=== PATIENT | female | born 1945 | race African-American/Black ===

== ENCOUNTER 2017-04-27 09:38 | Outpatient (CLI) | payer MEDICARE, OTHER ==
[2017-04-27 10:03] LABS: Eosinophils % (Auto) 2.5 % (0.0-4.3); Hematocrit 26.9 % (30.3-42.9); Hemoglobin 8.8 gm/dl (10.1-14.3); Mean Corpuscular HGB Conc 33 % (30-34); Mean Corpuscular Hemoglobin 32 pg (28-32); Mean Corpuscular Volume 97 fl (79-97); Platelet Count 281 K/mm3 (140-440); Red Blood Count 2.78 M/mm3 (3.65-5.03); Red Cell Distribution Width 15.7 % (13.2-15.2); White Blood Count 6.1 K/mm3 (4.5-11.0)
[2017-04-27 10:04] LABS: Bilirubin,Urine NEG (Negative); Blood,Urine NEG (Negative); Ketones,Urine NEG (Negative); Leukocyte Esterase,Urine NEG (Negative); Mucus,Urine FEW /HPF; Nitrite,Urine NEG (Negative); Urobilinogen,Urine < 2.0 mg/dL (<2.0); WBC,Urine < 1.0 /HPF (0.0-6.0)
[2017-04-27 10:19] LABS: Calcium 8.6 mg/dL (8.4-10.2); Chloride 100.1 mmol/L (98-107); Phosphorous 6.8 mg/dL (2.5-4.5)
== END 2017-04-27 09:39 | disposition home or self-care (01) ==
LOC: LAB 09:38
PROVIDERS: ATTEND Internal Medicine Nephrology
DX: N17.9 Acute kidney failure, unspecified (principal)
CPT/HCPCS: 36415; 80048; 81001; 84100; 85025

== ENCOUNTER 2017-05-27 14:56 | Inpatient (IN) | payer MEDICARE, OTHER ==
[2017-05-27] MEDS ORDERED: D50W (25GM) Syringe IV ONE ×4 (15:54→18:33)
[2017-05-27 16:02] LABS: Basophils % (Auto) 0.8 % (0.0-1.8); Eosinophils # (Auto) 0.1 K/mm3 (0.0-0.4); Eosinophils % (Auto) 0.9 % (0.0-4.3); Hematocrit 27.7 % (30.3-42.9); Hemoglobin 9.3 gm/dl (10.1-14.3); Lymphocytes # (Auto) 0.6 K/mm3 (1.2-5.4); Lymphocytes % (Auto) 10.1 % (13.4-35.0); Mean Corpuscular HGB Conc 34 % (30-34); Mean Corpuscular Hemoglobin 32 pg (28-32); Mean Corpuscular Volume 95 fl (79-97); Monocytes # (Auto) 0.4 K/mm3 (0.0-0.8); Monocytes % (Auto) 5.7 % (0.0-7.3); Platelet Count 160 K/mm3 (140-440); Red Blood Count 2.92 M/mm3 (3.65-5.03); Red Cell Distribution Width 15.4 % (13.2-15.2)
[2017-05-27 16:24] LABS: Albumin 3.5 g/dL (3.9-5); Calcium 8.6 mg/dL (8.4-10.2)
--- NOTE | 2017-05-27 17:01 | Emergency Department Report ---
ED Altered Mental Status HPI - General Chief Complaint: Altered Mental Status Stated Complaint: GENERAL ILLNESS Time Seen by Provider: 05/27/17 16:33 Source: EMS, RN notes reviewed Mode of arrival: Stretcher Limitations: Language Barrier - History of Present Illness MD Complaint: altered mental status, decreased responsiveness -: unknown (Accu-Chek was 35 according to the nurse.) Severity: severe Consistency of Symptoms: waxing and waning Context: diabetes, other (hypoglycemia) Associated Symptoms: denies other symptoms Treatments Prior to Arrival: glucose - Related Data Home Medications Medication Instructions Recorded Confirmed Last Taken Latanoprost 1 drop OU QHS 04/21/17 04/21/17 04/14/17 21:00 1 drop Previous Rx's Medication Instructions Recorded Last Taken Type Aspirin [Aspirin BABY CHEW TAB] 81 mg PO QDAY #30 tab.chew 04/21/17 Unknown Rx AtorvaSTATin [Lipitor] 40 mg PO QHS tablet 04/21/17 Unknown Rx Calcitriol [Rocaltrol] 0.25 mcg PO QDAY #30 capsule 04/21/17 Unknown Rx Calcium Acetate [Phoslo] 667 mg PO TIDWM #90 capsule 04/21/17 Unknown Rx Carvedilol [Coreg] 12.5 mg PO BID #60 tablet 04/21/17 Unknown Rx Ferrous Sulfate [Feosol 325 MG tab] 325 mg PO QDAY #30 tablet 04/21/17 Unknown Rx Folic Acid/Vit B Comp W-C [Renal 1 cap PO QDAY #30 capsule 04/21/17 Unknown Rx Caps] Furosemide [Lasix TAB] 40 mg PO 0600,1800 #60 tablet 04/21/17 Unknown Rx Glimepiride [Amaryl] 2 mg PO QDDIAB tablet 04/21/17 Unknown Rx NovoLIN 70/30 6 units SQ Q12HR #1 vial 04/21/17 04/14/17 Rx Pantoprazole [Protonix TAB] 40 mg PO BID #60 tablet 04/21/17 Unknown Rx Zolpidem [Ambien] 5 mg PO QHS PRN tablet 04/21/17 Unknown Rx hydrALAZINE [Apresoline TAB] 100 mg PO TID #90 tab 04/21/17 Unknown Rx Allergies Allergy/AdvReac Type Severity Reaction Status Date / Time No Known Allergies Allergy Unverified 07/14/14 15:02 ED Review of Systems ROS: Stated complaint: GENERAL ILLNESS Other details as noted in HPI Comment: Unobtainable due to pts medical conditions Constitutional: weakness ED Past Medical Hx - Past Medical History Hx Hypertension: Yes (admitted in CHF due to volume overload) Hx Diabetes: Yes Hx Renal Disease: Yes (stage 5 CKD with secondary hyoerparathyroidism.) Additional medical history: cataracts - Surgical History Hx Cholecystectomy: Yes - Social History Smoking Status: Unknown if ever smoked - Medications Home Medications: Home Medications Medication Instructions Recorded Confirmed Last Taken Type Aspirin [Aspirin BABY CHEW TAB] 81 mg PO QDAY #30 tab.chew 04/21/17 Unknown Rx AtorvaSTATin [Lipitor] 40 mg PO QHS tablet 04/21/17 Unknown Rx Calcitriol [Rocaltrol] 0.25 mcg PO QDAY #30 capsule 04/21/17 Unknown Rx Calcium Acetate [Phoslo] 667 mg PO TIDWM #90 capsule 04/21/17 Unknown Rx Carvedilol [Coreg] 12.5 mg PO BID #60 tablet 04/21/17 Unknown Rx Ferrous Sulfate [Feosol 325 MG tab] 325 mg PO QDAY #30 tablet 04/21/17 Unknown Rx Folic Acid/Vit B Comp W-C [Renal 1 cap PO QDAY #30 capsule 04/21/17 Unknown Rx Caps] Furosemide [Lasix TAB] 40 mg PO 0600,1800 #60 tablet 04/21/17 Unknown Rx Glimepiride [Amaryl] 2 mg PO QDDIAB tablet 04/21/17 Unknown Rx Latanoprost 1 drop OU QHS 04/21/17 04/21/17 04/14/17 21:00 History 1 drop NovoLIN 70/30 6 units SQ Q12HR #1 vial 04/21/17 04/14/17 Rx Pantoprazole [Protonix TAB] 40 mg PO BID #60 tablet 04/21/17 Unknown Rx Zolpidem [Ambien] 5 mg PO QHS PRN tablet 04/21/17 Unknown Rx hydrALAZINE [Apresoline TAB] 100 mg PO TID #90 tab 04/21/17 Unknown Rx ED Physical Exam - General Limitations: Language Barrier, Altered Mental Status General appearance: lethargic - Head Head exam: Present: atraumatic, normocephalic - Eye Eye exam: Present: normal appearance, PERRL, EOMI Pupils: Present: normal accommodation - ENT ENT exam: Present: mucous membranes dry - Neck Neck exam: Present: normal inspection, full ROM. Absent: tenderness - Respiratory Respiratory exam: Present: rales. Absent: chest wall tenderness - Cardiovascular Cardiovascular Exam: Present: regular rate, normal rhythm - GI/Abdominal GI/Abdominal exam: Present: soft, normal bowel sounds. Absent: distended, tenderness, organomegaly, mass - Rectal Rectal exam: Present: deferred - Extremities Exam Extremities exam: Present: pedal edema (4+ pedal pitting edema.) - Back Exam Back exam: Present: normal inspection - Neurological Exam Neurological exam: Present: alert - Psychiatric Psychiatric exam: Present: flat affect - Skin Skin exam: Present: warm, dry, intact, normal color ED Course Vital Signs 05/27/17 05/27/17 05/27/17 14:57 15:30 15:32 Temperature 97.5 F L Pulse Rate 72 71 72 Pulse Rate [ Throughout] Respiratory 18 22 24 Rate Respiratory Rate [ Throughout] Blood Pressure 211/89 Blood Pressure 211/85 [Left] O2 Sat by Pulse 95 95 Oximetry 05/27/17 05/27/17 05/27/17 15:45 16:00 16:15 Temperature Pulse Rate 67 72 69 Pulse Rate [ Throughout] Respiratory 21 21 17 Rate Respiratory Rate [ Throughout] Blood Pressure 206/87 208/90 222/92 Blood Pressure [Left] O2 Sat by Pulse 96 93 96 Oximetry 05/27/17 05/27/17 05/27/17 16:30 16:45 17:01 Temperature Pulse Rate 74 78 72 Pulse Rate [ Throughout] Respiratory 18 20 20 Rate Respiratory Rate [ Throughout] Blood Pressure 226/98 225/107 227/92 Blood Pressure [Left] O2 Sat by Pulse 95 98 95 Oximetry 05/27/17 05/27/17 05/27/17 17:17 17:30 17:45 Temperature Pulse Rate 76 75 74 Pulse Rate [ Throughout] Respiratory 18 19 14 Rate Respiratory Rate [ Throughout] Blood Pressure 227/92 226/89 226/89 Blood Pressure [Left] O2 Sat by Pulse 99 100 Oximetry 05/27/17 05/27/17 05/27/17 18:00 18:15 18:30 Temperature Pulse Rate 70 69 75 Pulse Rate [ Throughout] Respiratory 19 17 18 Rate Respiratory Rate [ Throughout] Blood Pressure 228/95 228/95 230/107 Blood Pressure [Left] O2 Sat by Pulse 100 100 99 Oximetry 05/27/17 05/27/17 05/27/17 18:45 19:00 19:15 Temperature Pulse Rate 72 78 75 Pulse Rate [ Throughout] Respiratory 17 17 18 Rate Respiratory Rate [ Throughout] Blood Pressure 230/107 235/105 235/105 Blood Pressure [Left] O2 Sat by Pulse 100 98 100 Oximetry 05/27/17 05/27/17 05/27/17 19:22 19:23 19:45 Temperature Pulse Rate 77 77 70 Pulse Rate [ Throughout] Respiratory 16 Rate Respiratory Rate [ Throughout] Blood Pressure 235/105 235/105 Blood Pressure 202/74 [Left] O2 Sat by Pulse 98 Oximetry 05/27/17 05/27/17 05/27/17 20:16 22:00 22:27 Temperature 97.6 F Pulse Rate 75 75 Pulse Rate [ 75 Throughout] Respiratory 17 15 Rate Respiratory 14 Rate [ Throughout] Blood Pressure Blood Pressure 181/70 201/75 [Left] O2 Sat by Pulse 100 100 Oximetry 05/27/17 23:07 Temperature Pulse Rate 75 Pulse Rate [ Throughout] Respiratory Rate Respiratory Rate [ Throughout] Blood Pressure 202/80 Blood Pressure [Left] O2 Sat by Pulse Oximetry - Reevaluation(s) Reevaluation #2: 05/27/17 18:32 Patient was admitted to Dr. Mccord the hospitalist for further evaluation and management. - Lab Data Result diagrams: 05/27/17 17:22 05/27/17 17:22 Lab Results 05/27/17 05/27/17 05/27/17 Range/Units 15:47 15:47 15:47 WBC 6.2 (4.5-11.0) K/mm3 RBC 2.92 L (3.65-5.03) M/mm3 Hgb 9.3 L (10.1-14.3) gm/dl Hct 27.7 L (30.3-42.9) % MCV 95 (79-97) fl MCH 32 (28-32) pg MCHC 34 (30-34) % RDW 15.4 H (13.2-15.2) % Plt Count 160 (140-440) K/mm3 Lymph % (Auto) 10.1 L (13.4-35.0) % [place] % (Auto) 5.7 (0.0-7.3) % Eos % (Auto) 0.9 (0.0-4.3) % Baso % (Auto) 0.8 (0.0-1.8) % Lymph # 0.6 L (1.2-5.4) K/mm3 [place] # 0.4 (0.0-0.8) K/mm3 Eos # 0.1 (0.0-0.4) K/mm3 Baso # 0.0 (0.0-0.1) K/mm3 Seg Neutrophils % 82.5 H (40.0-70.0) % Seg Neutrophils # 5.1 (1.8-7.7) K/mm3 PT (12.2-14.9) Sec. INR (0.87-1.13) APTT (24.2-36.6) Sec. Sodium 139 (137-145) mmol/L Potassium 4.2 (3.6-5.0) mmol/L Chloride 101.7 (98-107) mmol/L Carbon Dioxide 19 L (22-30) mmol/L Anion Gap 23 mmol/L BUN 58 H (7-17) mg/dL Creatinine 3.4 H (0.7-1.2) mg/dL Estimated GFR 13 ml/min BUN/Creatinine Ratio 17 % Glucose 32 L* (65-100) mg/dL POC Glucose (70-105) Lactic Acid (0.7-2.0) mmol/L Calcium 8.6 (8.4-10.2) mg/dL Total Bilirubin 0.30 (0.1-1.2) mg/dL AST 23 (5-40) units/L ALT 24 (7-56) units/L Alkaline Phosphatase 78 (35-129) units/L Ammonia (25-60) umol/L Total Creatine Kinase (30-135) units/L CK-MB (CK-2) (0.0-4.0) ng/mL CK-MB (CK-2) Rel Index (0-4) Troponin T (0.00-0.029) ng/mL NT-Pro-B Natriuret Pep (0-900) pg/mL Total Protein 6.5 (6.3-8.2) g/dL Albumin 3.5 L (3.9-5) g/dL Albumin/Globulin Ratio 1.2 % Triglycerides (2-149) mg/dL Cholesterol (50-199) mg/dL LDL Cholesterol Direct (50-130) mg/dL HDL Cholesterol (40-59) mg/dL Cholesterol/HDL Ratio % Lipase (13-60) units/L TSH 4.020 (0.270-4.200) mlU/mL Urine Color (Yellow) Urine Turbidity (Clear) Urine pH (5.0-7.0) Ur Specific [place] (1.003-1.030) Urine Protein (Negative) mg/dL Urine Glucose (UA) (Negative) mg/dL Urine Ketones (Negative) mg/dL Urine Blood (Negative) Urine Nitrite (Negative) Urine Bilirubin (Negative) Urine Urobilinogen (<2.0) mg/dL Ur Leukocyte Esterase (Negative) Urine WBC (Auto) (0.0-6.0) /HPF Urine RBC (Auto) (0.0-6.0) /HPF Urine Bacteria (Auto) (Negative) /HPF Urine Opiates Screen Urine Methadone Screen Ur Barbiturates Screen Ur Phencyclidine Scrn Ur Amphetamines Screen U Benzodiazepines Scrn Urine Cocaine Screen U Marijuana (THC) Screen Drugs of Abuse Note Plasma/Serum Alcohol (0-0.07) gm% 05/27/17 05/27/17 05/27/17 Range/Units 15:47 15:55 16:52 WBC (4.5-11.0) K/mm3 RBC (3.65-5.03) M/mm3 Hgb (10.1-14.3) gm/dl Hct (30.3-42.9) % MCV (79-97) fl MCH (28-32) pg MCHC (30-34) % RDW (13.2-15.2) % Plt Count (140-440) K/mm3 Lymph % (Auto) (13.4-35.0) % [place] % (Auto) (0.0-7.3) % Eos % (Auto) (0.0-4.3) % Baso % (Auto) (0.0-1.8) % Lymph # (1.2-5.4) K/mm3 [place] # (0.0-0.8) K/mm3 Eos # (0.0-0.4) K/mm3 Baso # (0.0-0.1) K/mm3 Seg Neutrophils % (40.0-70.0) % Seg Neutrophils # (1.8-7.7) K/mm3 PT (12.2-14.9) Sec. INR (0.87-1.13) APTT (24.2-36.6) Sec. Sodium (137-145) mmol/L Potassium (3.6-5.0) mmol/L Chloride (98-107) mmol/L Carbon Dioxide (22-30) mmol/L Anion Gap mmol/L BUN (7-17) mg/dL Creatinine (0.7-1.2) mg/dL Estimated GFR ml/min BUN/Creatinine Ratio % Glucose (65-100) mg/dL POC Glucose < 40 L 139 H (70-105) Lactic Acid (0.7-2.0) mmol/L Calcium (8.4-10.2) mg/dL Total Bilirubin (0.1-1.2) mg/dL AST (5-40) units/L ALT (7-56) units/L Alkaline Phosphatase (35-129) units/L Ammonia (25-60) umol/L Total Creatine Kinase (30-135) units/L CK-MB (CK-2) (0.0-4.0) ng/mL CK-MB (CK-2) Rel Index (0-4) Troponin T (0.00-0.029) ng/mL NT-Pro-B Natriuret Pep (0-900) pg/mL Total Protein (6.3-8.2) g/dL Albumin (3.9-5) g/dL Albumin/Globulin Ratio % Triglycerides (2-149) mg/dL Cholesterol (50-199) mg/dL LDL Cholesterol Direct (50-130) mg/dL HDL Cholesterol (40-59) mg/dL Cholesterol/HDL Ratio % Lipase (13-60) units/L TSH (0.270-4.200) mlU/mL Urine Color (Yellow) Urine Turbidity (Clear) Urine pH (5.0-7.0) Ur Specific [place] (1.003-1.030) Urine Protein (Negative) mg/dL Urine Glucose (UA) (Negative) mg/dL Urine Ketones (Negative) mg/dL Urine Blood (Negative) Urine Nitrite (Negative) Urine Bilirubin (Negative) Urine Urobilinogen (<2.0) mg/dL Ur Leukocyte Esterase (Negative) Urine WBC (Auto) (0.0-6.0) /HPF Urine RBC (Auto) (0.0-6.0) /HPF Urine Bacteria (Auto) (Negative) /HPF Urine Opiates Screen Urine Methadone Screen Ur Barbiturates Screen Ur Phencyclidine Scrn Ur Amphetamines Screen U Benzodiazepines Scrn Urine Cocaine Screen U Marijuana (THC) Screen Drugs of Abuse Note Plasma/Serum Alcohol < 0.01 (0-0.07) gm% 05/27/17 05/27/17 05/27/17 Range/Units 17:22 17:22 17:22 WBC 6.6 (4.5-11.0) K/mm3 RBC 2.93 L (3.65-5.03) M/mm3 Hgb 9.3 L (10.1-14.3) gm/dl Hct 28.3 L (30.3-42.9) % MCV 97 (79-97) fl MCH 32 (28-32) pg MCHC 33 (30-34) % RDW 15.5 H (13.2-15.2) % Plt Count 154 (140-440) K/mm3 Lymph % (Auto) 7.4 L (13.4-35.0) % [place] % (Auto) 4.3 (0.0-7.3) % Eos % (Auto) 0.4 (0.0-4.3) % Baso % (Auto) 0.7 (0.0-1.8) % Lymph # 0.5 L (1.2-5.4) K/mm3 [place] # 0.3 (0.0-0.8) K/mm3 Eos # 0.0 (0.0-0.4) K/mm3 Baso # 0.0 (0.0-0.1) K/mm3 Seg Neutrophils % 87.2 H (40.0-70.0) % Seg Neutrophils # 5.7 (1.8-7.7) K/mm3 PT 14.0 (12.2-14.9) Sec. INR 1.03 (0.87-1.13) APTT 29.9 (24.2-36.6) Sec. Sodium 139 (137-145) mmol/L Potassium 4.5 (3.6-5.0) mmol/L Chloride 101.4 (98-107) mmol/L Carbon Dioxide 18 L (22-30) mmol/L Anion Gap 24 mmol/L BUN 59 H (7-17) mg/dL Creatinine 3.5 H (0.7-1.2) mg/dL Estimated GFR 13 ml/min BUN/Creatinine Ratio 17 % Glucose 98 (65-100) mg/dL POC Glucose (70-105) Lactic Acid (0.7-2.0) mmol/L Calcium 8.5 (8.4-10.2) mg/dL Total Bilirubin 0.40 (0.1-1.2) mg/dL AST 24 (5-40) units/L ALT 24 (7-56) units/L Alkaline Phosphatase 77 (35-129) units/L Ammonia (25-60) umol/L Total Creatine Kinase 110 (30-135) units/L CK-MB (CK-2) 4.5 H (0.0-4.0) ng/mL CK-MB (CK-2) Rel Index 4.0 (0-4) Troponin T 0.030 H (0.00-0.029) ng/mL NT-Pro-B Natriuret Pep > 37291 H (0-900) pg/mL Total Protein 6.4 (6.3-8.2) g/dL Albumin 3.7 L (3.9-5) g/dL Albumin/Globulin Ratio 1.4 % Triglycerides 87 (2-149) mg/dL Cholesterol 136 (50-199) mg/dL LDL Cholesterol Direct 59 (50-130) mg/dL HDL Cholesterol 60 H (40-59) mg/dL Cholesterol/HDL Ratio 2.26 % Lipase 50 (13-60) units/L TSH (0.270-4.200) mlU/mL Urine Color (Yellow) Urine Turbidity (Clear) Urine pH (5.0-7.0) Ur Specific [place] (1.003-1.030) Urine Protein (Negative) mg/dL Urine Glucose (UA) (Negative) mg/dL Urine Ketones (Negative) mg/dL Urine Blood (Negative) Urine Nitrite (Negative) Urine Bilirubin (Negative) Urine Urobilinogen (<2.0) mg/dL Ur Leukocyte Esterase (Negative) Urine WBC (Auto) (0.0-6.0) /HPF Urine RBC (Auto) (0.0-6.0) /HPF Urine Bacteria (Auto) (Negative) /HPF Urine Opiates Screen Urine Methadone Screen Ur Barbiturates Screen Ur Phencyclidine Scrn Ur Amphetamines Screen U Benzodiazepines Scrn Urine Cocaine Screen U Marijuana (THC) Screen Drugs of Abuse Note Plasma/Serum Alcohol (0-0.07) gm% 05/27/17 05/27/17 05/27/17 Range/Units 17:22 17:22 18:09 WBC (4.5-11.0) K/mm3 RBC (3.65-5.03) M/mm3 Hgb (10.1-14.3) gm/dl Hct (30.3-42.9) % MCV (79-97) fl MCH (28-32) pg MCHC (30-34) % RDW (13.2-15.2) % Plt Count (140-440) K/mm3 Lymph % (Auto) (13.4-35.0) % [place] % (Auto) (0.0-7.3) % Eos % (Auto) (0.0-4.3) % Baso % (Auto) (0.0-1.8) % Lymph # (1.2-5.4) K/mm3 [place] # (0.0-0.8) K/mm3 Eos # (0.0-0.4) K/mm3 Baso # (0.0-0.1) K/mm3 Seg Neutrophils % (40.0-70.0) % Seg Neutrophils # (1.8-7.7) K/mm3 PT (12.2-14.9) Sec. INR (0.87-1.13) APTT (24.2-36.6) Sec. Sodium (137-145) mmol/L Potassium (3.6-5.0) mmol/L Chloride (98-107) mmol/L Carbon Dioxide (22-30) mmol/L Anion Gap mmol/L BUN (7-17) mg/dL Creatinine (0.7-1.2) mg/dL Estimated GFR ml/min BUN/Creatinine Ratio % Glucose (65-100) mg/dL POC Glucose 93 (70-105) Lactic Acid 0.80 (0.7-2.0) mmol/L Calcium (8.4-10.2) mg/dL Total Bilirubin (0.1-1.2) mg/dL AST (5-40) units/L ALT (7-56) units/L Alkaline Phosphatase (35-129) units/L Ammonia 43.0 (25-60) umol/L Total Creatine Kinase (30-135) units/L CK-MB (CK-2) (0.0-4.0) ng/mL CK-MB (CK-2) Rel Index (0-4) Troponin T (0.00-0.029) ng/mL NT-Pro-B Natriuret Pep (0-900) pg/mL Total Protein (6.3-8.2) g/dL Albumin (3.9-5) g/dL Albumin/Globulin Ratio % Triglycerides (2-149) mg/dL Cholesterol (50-199) mg/dL LDL Cholesterol Direct (50-130) mg/dL HDL Cholesterol (40-59) mg/dL Cholesterol/HDL Ratio % Lipase (13-60) units/L TSH (0.270-4.200) mlU/mL Urine Color (Yellow) Urine Turbidity (Clear) Urine pH (5.0-7.0) Ur Specific [place] (1.003-1.030) Urine Protein (Negative) mg/dL Urine Glucose (UA) (Negative) mg/dL Urine Ketones (Negative) mg/dL Urine Blood (Negative) Urine Nitrite (Negative) Urine Bilirubin (Negative) Urine Urobilinogen (<2.0) mg/dL Ur Leukocyte Esterase (Negative) Urine WBC (Auto) (0.0-6.0) /HPF Urine RBC (Auto) (0.0-6.0) /HPF Urine Bacteria (Auto) (Negative) /HPF Urine Opiates Screen Urine Methadone Screen Ur Barbiturates Screen Ur Phencyclidine Scrn Ur Amphetamines Screen U Benzodiazepines Scrn Urine Cocaine Screen U Marijuana (THC) Screen Drugs of Abuse Note Plasma/Serum Alcohol (0-0.07) gm% 05/27/17 05/27/17 05/27/17 Range/Units 18:25 18:25 22:38 WBC (4.5-11.0) K/mm3 RBC (3.65-5.03) M/mm3 Hgb (10.1-14.3) gm/dl Hct (30.3-42.9) % MCV (79-97) fl MCH (28-32) pg MCHC (30-34) % RDW (13.2-15.2) % Plt Count (140-440) K/mm3 Lymph % (Auto) (13.4-35.0) % [place] % (Auto) (0.0-7.3) % Eos % (Auto) (0.0-4.3) % Baso % (Auto) (0.0-1.8) % Lymph # (1.2-5.4) K/mm3 [place] # (0.0-0.8) K/mm3 Eos # (0.0-0.4) K/mm3 Baso # (0.0-0.1) K/mm3 Seg Neutrophils % (40.0-70.0) % Seg Neutrophils # (1.8-7.7) K/mm3 PT (12.2-14.9) Sec. INR (0.87-1.13) APTT (24.2-36.6) Sec. Sodium (137-145) mmol/L Potassium (3.6-5.0) mmol/L Chloride (98-107) mmol/L Carbon Dioxide (22-30) mmol/L Anion Gap mmol/L BUN (7-17) mg/dL Creatinine (0.7-1.2) mg/dL Estimated GFR ml/min BUN/Creatinine Ratio % Glucose (65-100) mg/dL POC Glucose 99 (70-105) Lactic Acid (0.7-2.0) mmol/L Calcium (8.4-10.2) mg/dL Total Bilirubin (0.1-1.2) mg/dL AST (5-40) units/L ALT (7-56) units/L Alkaline Phosphatase (35-129) units/L Ammonia (25-60) umol/L Total Creatine Kinase (30-135) units/L CK-MB (CK-2) (0.0-4.0) ng/mL CK-MB (CK-2) Rel Index (0-4) Troponin T (0.00-0.029) ng/mL NT-Pro-B Natriuret Pep (0-900) pg/mL Total Protein (6.3-8.2) g/dL Albumin (3.9-5) g/dL Albumin/Globulin Ratio % Triglycerides (2-149) mg/dL Cholesterol (50-199) mg/dL LDL Cholesterol Direct (50-130) mg/dL HDL Cholesterol (40-59) mg/dL Cholesterol/HDL Ratio % Lipase (13-60) units/L TSH (0.270-4.200) mlU/mL Urine Color Yellow (Yellow) Urine Turbidity Clear (Clear) Urine pH 7.0 (5.0-7.0) Ur Specific [place] 1.012 (1.003-1.030) Urine Protein >500 (Negative) mg/dL Urine Glucose (UA) 150 (Negative) mg/dL Urine Ketones Neg (Negative) mg/dL Urine Blood Neg (Negative) Urine Nitrite Neg (Negative) Urine Bilirubin Neg (Negative) Urine Urobilinogen < 2.0 (<2.0) mg/dL Ur Leukocyte Esterase Neg (Negative) Urine WBC (Auto) 1.0 (0.0-6.0) /HPF Urine RBC (Auto) 9.0 (0.0-6.0) /HPF Urine Bacteria (Auto) 1+ (Negative) /HPF Urine Opiates Screen Presumptive negative Urine Methadone Screen Presumptive negative Ur Barbiturates Screen Presumptive negative Ur Phencyclidine Scrn Presumptive negative Ur Amphetamines Screen Presumptive negative U Benzodiazepines Scrn Presumptive negative Urine Cocaine Screen Presumptive negative U Marijuana (THC) Screen Presumptive negative Drugs of Abuse Note Disclamer Plasma/Serum Alcohol (0-0.07) gm% - EKG Data EKG shows normal: sinus rhythm, intervals (prolonged QT.) When compared to previous EKG there are: previous EKG unavailable Interpretation: nonspecific ST-T wave maxx, other (Q-wave in the anterior and inferior leads no old EKG for comparison.) - Radiology Data Radiology results: image reviewed CHF with pulmonary edema. - Medical Decision Making Acute Congestive heart failure exacerbation. Chronic renal failure. Altered mental status. Hypertension. Hypoglycemia. Critical Care Time: Yes Critical care time in (mins) excluding proc time.: 40 (time was spent evaluating the patient, talking to the hospitalist team to patient shots and medical record.) Critical care attestation.: If time is entered above; I have spent that time in minutes in the direct care of this critically ill patient, excluding procedure time. Critical Care Time: 40 mins. ED Disposition Clinical Impression: Hypoglycemic encephalopathy CHF exacerbation Qualifiers: Congestive heart failure type: unspecified congestive heart failure type Qualified Code(s): I50.9 - Heart failure, unspecified Chronic renal failure Qualifiers: Chronic kidney disease stage: unspecified stage Qualified Code(s): N18.9 - Chronic kidney disease, unspecified Altered mental status Qualifiers: Altered mental status type: disorientation Qualified Code(s): R41.0 - Disorientation, unspecified Hypertension Qualifiers: Hypertension type: essential hypertension Qualified Code(s): I10 - Essential ( primary) hypertension Disposition: -09 OP ADMIT IP TO THIS HOSP Is pt being admited?: Yes Condition: Stable Instructions: Hypertension (ED) Referrals: PRIMARY CARE, [Primary Care Provider] - 3-5 Days
--- NOTE | 2017-05-27 17:41 | Cat Scan Report ---
FINAL REPORT PROCEDURE: CT HEAD/BRAIN WO CON TECHNIQUE: Computerized tomography of the head was performed without contrast material. HISTORY: altered mental status COMPARISON: No prior studies are available for comparison. FINDINGS: Brain: There is no evidence of intracranial hemorrhage. No parenchymal hemorrhage is seen. No mass lesions or mass effect is identified. No abnormal extra-axial fluid collections or masses are seen. Nonspecific mineralization of the basal ganglia are visualized. There is some decreased density seen in the periventricular white matter without mass effect. This is fairly symmetric and does not exhibit any mass effect consistent with gliosis probably on the basis of microvascular disease or white matter changes of aging. Ventricles: The ventricles, sulcal pattern and fissures are prominent consistent with atrophy. Bones: No evidence of acute fracture. Paranasal sinuses: There is mild mucosal thickening in a few of the ethmoid air cells also in right maxillary sinus. There is mild mucosal thickening also visualized in right side of the sphenoid sinus. Mastoid air cells: clear IMPRESSION: There is evidence of mild atrophy and gliosis. No acute intracranial abnormalities are identified. If symptoms persist or worsen consider follow-up CT scan or MRI for further evaluation. Mild paranasal sinus disease as described.
[2017-05-27 17:43] LABS: Basophils % (Auto) 0.7 % (0.0-1.8); Eosinophils % (Auto) 0.4 % (0.0-4.3); Hematocrit 28.3 % (30.3-42.9); Hemoglobin 9.3 gm/dl (10.1-14.3); Lymphocytes # (Auto) 0.5 K/mm3 (1.2-5.4); Lymphocytes % (Auto) 7.4 % (13.4-35.0); Mean Corpuscular HGB Conc 33 % (30-34); Mean Corpuscular Hemoglobin 32 pg (28-32); Mean Corpuscular Volume 97 fl (79-97); Monocytes # (Auto) 0.3 K/mm3 (0.0-0.8); Monocytes % (Auto) 4.3 % (0.0-7.3); Platelet Count 154 K/mm3 (140-440); Red Blood Count 2.93 M/mm3 (3.65-5.03); Red Cell Distribution Width 15.5 % (13.2-15.2)
--- NOTE | 2017-05-27 17:45 | XRay Report ---
FINAL REPORT PROCEDURE: XR CHEST 1V AP TECHNIQUE: Chest radiograph anteroposterior view. CPT 99381 HISTORY: altered mental status COMPARISON: Prior chest x-ray 04/15/2017 FINDINGS: The heart is enlarged. Upper lobe vasculature remains distended. Margins are slightly ill-defined. Mild hazy and patchy increased density seen in the perihilar regions. No dense consolidations are identified. There is mild blunting of the left lateral costophrenic angle suggesting small left effusion. Lungs are hypoventilated. No acute bony abnormalities are identified. IMPRESSION: Cardiomegaly with pulmonary venous hypertension changes. I cannot exclude mild pulmonary edema. Minimal left pleural effusion appears to be present Minimal increased density in the perihilar regions may be artifact from lack of full inspiration. I cannot exclude mild perihilar edema, minimal atelectasis or infiltrates.
[2017-05-27 17:53] LABS: INR 1.03 (0.87-1.13); Partial Thromboplastin Time 29.9 Sec. (24.2-36.6)
[2017-05-27] MEDS ORDERED: LASIX IV ONE (17:54)
[2017-05-27 18:07] LABS: Creatine Kinase MB 4.5 ng/mL (0.0-4.0)
[2017-05-27 18:08] LABS: Alanine Aminotransferase 24 units/L (7-56); Albumin 3.7 g/dL (3.9-5); BUN/Creatinine Ratio 17; Blood Urea Nitrogen 59 mg/dL (7-17); Calcium 8.5 mg/dL (8.4-10.2); Hemolysis Index 4; Lipase 50 units/L (13-60)
[2017-05-27 18:22] LABS: Chol/HDL Ratio 2.26 %; HDL Cholesterol 60 mg/dL (40-59); LDL Cholesterol,Direct 59 mg/dL (50-130)
[2017-05-27 18:44] LABS: Bacteria,Urine 1+ /HPF (Negative); Bilirubin,Urine NEG (Negative); Blood,Urine NEG (Negative); Color,Urine Yellow (Yellow); Nitrite,Urine NEG (Negative); Urobilinogen,Urine < 2.0 mg/dL (<2.0)
[2017-05-27 18:47] LABS: Protein,Urine >500 mg/dL (Negative)
[2017-05-27 18:49] LABS: Amphetamine Screen,Urine PRESUMPTIVE NEGATIVE; Benzodiazepines Screen,Urine PRESUMPTIVE NEGATIVE; Cannabinoid Screen,Urine PRESUMPTIVE NEGATIVE; Cocaine Screen,Urine PRESUMPTIVE NEGATIVE; Methadone Screen,Urine PRESUMPTIVE NEGATIVE; Opiate Screen,Urine PRESUMPTIVE NEGATIVE
[2017-05-27] MEDS ORDERED: APRESOLINE IV ONE ×2 (19:11)
[2017-05-27] MEDS ORDERED: NITROSTAT SL PRN (19:11)
[2017-05-27] MEDS ORDERED: NITRO-BID 2% TP ONE (19:11)
[2017-05-27] MEDS ORDERED: AMBIEN PO PRN (21:06)
--- NOTE | 2017-05-27 21:06 | History and Physical Report ---
History of Present Illness Date of examination: 05/27/17 Date of admission: 05/27/17 18:46 Chief complaint: CC Altered mental status 1 day History of present illness: UTE:72 y/o female with multiple medicalproblems including HTN IDDM CKD HLD and GERD brought in for altered sensorium and decreased responsiveness for few hours.No fever.SOB present.Patent found to be hypoglycemic in ER.BG of 32.Became more responsive after D50 W in ER but still confused. No exacerbating or relieving factors except poor Po intake. Past Medical History Hx Hypertension: Yes (admitted in CHF due to volume overload) Hx Diabetes: Yes Hx Renal Disease: Yes (stage 5 CKD with secondary hyperparathyroidism.) Additional medical history: cataracts Surgical History Hx Cholecystectomy: Yes Social History Smoking Status: Unknown if ever smoked Medications Home Medications: Home Medications Medication Instructions Recorded Confirmed Last Taken Type Aspirin [Aspirin BABY CHEW TAB] 81 mg PO QDAY #30 tab.chew 04/21/17 Unknown Rx AtorvaSTATin [Lipitor] 40 mg PO QHS tablet 04/21/17 Unknown Rx Calcitriol [Rocaltrol] 0.25 mcg PO QDAY #30 capsule 04/21/17 Unknown Rx Calcium Acetate [Phoslo] 667 mg PO TIDWM #90 capsule 04/21/17 Unknown Rx Carvedilol [Coreg] 12.5 mg PO BID #60 tablet 04/21/17 Unknown Rx Ferrous Sulfate [Feosol 325 MG tab] 325 mg PO QDAY #30 tablet 04/21/17 Unknown Rx Folic Acid/Vit B Comp W-C [Renal 1 cap PO QDAY #30 capsule 04/21/17 Unknown Rx Caps] Furosemide [Lasix TAB] 40 mg PO 0600,1800 #60 tablet 04/21/17 Unknown Rx Glimepiride [Amaryl] 2 mg PO QDDIAB tablet 04/21/17 Unknown Rx Latanoprost 1 drop OU QHS 04/21/17 04/21/17 04/14/17 21:00 History 1 drop NovoLIN 70/30 6 units SQ Q12HR #1 vial 04/21/17 04/14/17 Rx Pantoprazole [Protonix TAB] 40 mg PO BID #60 tablet 04/21/17 Unknown Rx Zolpidem [Ambien] 5 mg PO QHS PRN tablet 04/21/17 Unknown Rx hydrALAZINE [Apresoline TAB] 100 mg PO TID #90 tab 04/21/17 Unknown Rx ROS: Stated complaint: GENERAL ILLNESS Other details as noted in HPI Comment: Unobtainable due to pts medical conditions Constitutional: weakness BG of 32 Medications and Allergies Allergies Allergy/AdvReac Type Severity Reaction Status Date / Time No Known Allergies Allergy Unverified 07/14/14 15:02 Home Medications Medication Instructions Recorded Confirmed Last Taken Type Aspirin [Aspirin BABY CHEW TAB] 81 mg PO QDAY #30 tab.chew 04/21/17 Unknown Rx AtorvaSTATin [Lipitor] 40 mg PO QHS tablet 04/21/17 Unknown Rx Calcitriol [Rocaltrol] 0.25 mcg PO QDAY #30 capsule 04/21/17 Unknown Rx Calcium Acetate [Phoslo] 667 mg PO TIDWM #90 capsule 04/21/17 Unknown Rx Carvedilol [Coreg] 12.5 mg PO BID #60 tablet 04/21/17 Unknown Rx Ferrous Sulfate [Feosol 325 MG tab] 325 mg PO QDAY #30 tablet 04/21/17 Unknown Rx Folic Acid/Vit B Comp W-C [Renal 1 cap PO QDAY #30 capsule 04/21/17 Unknown Rx Caps] Furosemide [Lasix TAB] 40 mg PO 0600,1800 #60 tablet 04/21/17 Unknown Rx Glimepiride [Amaryl] 2 mg PO QDDIAB tablet 04/21/17 Unknown Rx Latanoprost 1 drop OU QHS 04/21/17 04/21/17 04/14/17 21:00 History 1 drop NovoLIN 70/30 6 units SQ Q12HR #1 vial 04/21/17 04/14/17 Rx Pantoprazole [Protonix TAB] 40 mg PO BID #60 tablet 04/21/17 Unknown Rx Zolpidem [Ambien] 5 mg PO QHS PRN tablet 04/21/17 Unknown Rx hydrALAZINE [Apresoline TAB] 100 mg PO TID #90 tab 04/21/17 Unknown Rx Active Meds: Active Medications Nitroglycerin (Nitrostat) 0.4 mg SL .Q5MIN PRN PRN Reason: Chest Pain Exam - Constitutional Vitals: Temp Pulse Resp BP Pulse Ox 97.6 F 75 17 181/70 100 05/27/17 20:16 05/27/17 20:16 05/27/17 20:16 05/27/17 20:16 05/27/17 20:16 General appearance: Present: no acute distress, well-nourished - EENT Eyes: Present: PERRL ENT: hearing intact, clear oral mucosa - Neck Neck: Present: supple, normal ROM - Respiratory Respiratory effort: normal Respiratory: bilateral: CTA - Cardiovascular Heart rate: 70 Rhythm: regular Heart Sounds: Present: S1 & S2. Absent: rub, click - Extremities Extremities: no ischemia, pulses intact, pulses symmetrical, No edema Peripheral Pulses: within normal limits - Abdominal General gastrointestinal: Present: soft, non-tender, non-distended, normal bowel sounds Female genitourinary: Present: normal - Rectal Rectal Exam: deferred - Integumentary Integumentary: Present: clear, warm, dry - Musculoskeletal Musculoskeletal: gait normal, strength equal bilaterally - Psychiatric Psychiatric: other (Decreased responsiveness) - Neurologic Neurologic: CNII-XII intact, moves all extremities - Allied Health Allied health notes reviewed: nursing, case management Results - Labs CBC & Chem 7: 05/27/17 17:22 05/27/17 17:22 Labs: Laboratory Last Values WBC 6.6 K/mm3 (4.5-11.0) 05/27/17 17:22 RBC 2.93 M/mm3 (3.65-5.03) L 05/27/17 17:22 Hgb 9.3 gm/dl (10.1-14.3) L 05/27/17 17:22 Hct 28.3 % (30.3-42.9) L 05/27/17 17:22 MCV 97 fl (79-97) 05/27/17 17:22 MCH 32 pg (28-32) 05/27/17 17:22 MCHC 33 % (30-34) 05/27/17 17:22 RDW 15.5 % (13.2-15.2) H 05/27/17 17:22 Plt Count 154 K/mm3 (140-440) 05/27/17 17:22 Lymph % (Auto) 7.4 % (13.4-35.0) L 05/27/17 17:22 Mower % (Auto) 4.3 % (0.0-7.3) 05/27/17 17:22 Eos % (Auto) 0.4 % (0.0-4.3) 05/27/17 17:22 Baso % (Auto) 0.7 % (0.0-1.8) 05/27/17 17:22 Lymph # 0.5 K/mm3 (1.2-5.4) L 05/27/17 17:22 Mower # 0.3 K/mm3 (0.0-0.8) 05/27/17 17:22 Eos # 0.0 K/mm3 (0.0-0.4) 05/27/17 17:22 Baso # 0.0 K/mm3 (0.0-0.1) 05/27/17 17:22 Seg Neutrophils % 87.2 % (40.0-70.0) H 05/27/17 17:22 Seg Neutrophils # 5.7 K/mm3 (1.8-7.7) 05/27/17 17:22 PT 14.0 Sec. (12.2-14.9) 05/27/17 17:22 INR 1.03 (0.87-1.13) 05/27/17 17:22 APTT 29.9 Sec. (24.2-36.6) 05/27/17 17:22 Sodium 139 mmol/L (137-145) 05/27/17 17:22 Potassium 4.5 mmol/L (3.6-5.0) 05/27/17 17:22 Chloride 101.4 mmol/L (98-107) 05/27/17 17:22 Carbon Dioxide 18 mmol/L (22-30) L 05/27/17 17:22 Anion Gap 24 mmol/L 05/27/17 17:22 BUN 59 mg/dL (7-17) H 05/27/17 17:22 Creatinine 3.5 mg/dL (0.7-1.2) H 05/27/17 17:22 Estimated GFR 13 ml/min 05/27/17 17:22 BUN/Creatinine Ratio 17 % 05/27/17 17:22 Glucose 98 mg/dL (65-100) 05/27/17 17:22 POC Glucose 93 (70-105) 05/27/17 18:09 Lactic Acid 0.80 mmol/L (0.7-2.0) 05/27/17 17:22 Calcium 8.5 mg/dL (8.4-10.2) 05/27/17 17:22 Total Bilirubin 0.40 mg/dL (0.1-1.2) 05/27/17 17:22 AST 24 units/L (5-40) 05/27/17 17:22 ALT 24 units/L (7-56) 05/27/17 17:22 Alkaline Phosphatase 77 units/L (35-129) 05/27/17 17:22 Ammonia 43.0 umol/L (25-60) 05/27/17 17:22 Total Creatine Kinase 110 units/L (30-135) 05/27/17 17:22 CK-MB (CK-2) 4.5 ng/mL (0.0-4.0) H 05/27/17 17:22 CK-MB (CK-2) Rel Index 4.0 (0-4) 05/27/17 17:22 Troponin T 0.030 ng/mL (0.00-0.029) H 05/27/17 17:22 NT-Pro-B Natriuret Pep > 45174 pg/mL (0-900) H 05/27/17 17:22 Total Protein 6.4 g/dL (6.3-8.2) 05/27/17 17:22 Albumin 3.7 g/dL (3.9-5) L 05/27/17 17:22 Albumin/Globulin Ratio 1.4 % 05/27/17 17:22 Triglycerides 87 mg/dL (2-149) 05/27/17 17:22 Cholesterol 136 mg/dL (50-199) 05/27/17 17:22 LDL Cholesterol Direct 59 mg/dL (50-130) 05/27/17 17:22 HDL Cholesterol 60 mg/dL (40-59) H 05/27/17 17:22 Cholesterol/HDL Ratio 2.26 % 05/27/17 17:22 Lipase 50 units/L (13-60) 05/27/17 17:22 TSH 4.020 mlU/mL (0.270-4.200) 05/27/17 15:47 Urine Color Yellow (Yellow) 05/27/17 18:25 Urine Turbidity Clear (Clear) 05/27/17 18:25 Urine pH 7.0 (5.0-7.0) 05/27/17 18:25 Ur Specific [place] 1.012 (1.003-1.030) 05/27/17 18:25 Urine Protein >500 mg/dL (Negative) 05/27/17 18:25 Urine Glucose (UA) 150 mg/dL (Negative) 05/27/17 18:25 Urine Ketones Neg mg/dL (Negative) 05/27/17 18:25 Urine Blood Neg (Negative) 05/27/17 18:25 Urine Nitrite Neg (Negative) 05/27/17 18:25 Urine Bilirubin Neg (Negative) 05/27/17 18:25 Urine Urobilinogen < 2.0 mg/dL (<2.0) 05/27/17 18:25 Ur Leukocyte Esterase Neg (Negative) 05/27/17 18:25 Urine WBC (Auto) 1.0 /HPF (0.0-6.0) 05/27/17 18:25 Urine RBC (Auto) 9.0 /HPF (0.0-6.0) 05/27/17 18:25 Urine Bacteria (Auto) 1+ /HPF (Negative) 05/27/17 18:25 Urine Opiates Screen Presumptive negative 05/27/17 18:25 Urine Methadone Screen Presumptive negative 05/27/17 18:25 Ur Barbiturates Screen Presumptive negative 05/27/17 18:25 Ur Phencyclidine Scrn Presumptive negative 05/27/17 18:25 Ur Amphetamines Screen Presumptive negative 05/27/17 18:25 U Benzodiazepines Scrn Presumptive negative 05/27/17 18:25 Urine Cocaine Screen Presumptive negative 05/27/17 18:25 U Marijuana (THC) Screen Presumptive negative 05/27/17 18:25 Drugs of Abuse Note Disclamer 05/27/17 18:25 Plasma/Serum Alcohol < 0.01 gm% (0-0.07) 05/27/17 15:47 - Imaging and Cardiology EKG: report reviewed Chest x-ray: report reviewed (Mild pulm edema) Assessment and Plan Advance Directives: Yes (FC) VTE prophylaxis?: Chemical Plan of care discussed with patient/family: Yes - Patient Problems (1) Acute encephalopathy Current Visit: Yes Status: Acute Plan to address problem: Sec to Hypoglycemia Corrected (2) Hypoglycemia Current Visit: Yes Status: Acute (3) CHF exacerbation Current Visit: Yes Status: Acute Qualifiers: Congestive heart failure type: diastolic Qualified Code(s): I50.33 - Acute on chronic diastolic (congestive) heart failure Plan to address problem: IV Lasix initiated BNP 34714 (4) CKD (chronic kidney disease) Current Visit: Yes Status: Acute Plan to address problem: Nephrology consulted (5) Hypertension Current Visit: Yes Status: Chronic Qualifiers: Hypertension type: essential hypertension Qualified Code(s): I10 - Essential (primary) hypertension Plan to address problem: Cont Antihypertensives (6) HLD (hyperlipidemia) Current Visit: Yes Status: Chronic Qualifiers: Hyperlipidemia type: mixed hyperlipidemia Qualified Code(s): E78.2 - Mixed hyperlipidemia Plan to address problem: cont statins (7) IDDM (insulin dependent diabetes mellitus) Current Visit: Yes Status: Chronic Plan to address problem: Cont insulin and adjust dosage depending on the BG trend.Check A1c (8) GERD (gastroesophageal reflux disease) Current Visit: Yes Status: Chronic Qualifiers: Esophagitis presence: without esophagitis Qualified Code(s): K21.9 - Gastro -esophageal reflux disease without esophagitis Plan to address problem: Cont PPI's (9) DVT prophylaxis Current Visit: Yes Status: Acute Plan to address problem: on lovenox
[2017-05-27] MEDS ORDERED: DUONEB *Not for PRN Use IH SCH (21:15)
[2017-05-27] MEDS ORDERED: INSULIN ISOPHANE SQ SCH (22:00)
[2017-05-27] MEDS ORDERED: INSULIN REGULAR SQ SCH (22:00)
[2017-05-27] MEDS ORDERED: COREG PO SCH (22:00)
[2017-05-27] MEDS: NOVOLOG SUB-Q SCH (22:36)
[2017-05-27] MEDS ORDERED: APRESOLINE ONE (23:01)
[2017-05-28] MEDS ORDERED: PROVENTIL IH PRN (01:19)
[2017-05-28] MEDS ORDERED: TYLENOL PO ONE (01:30)
[2017-05-28] MEDS ORDERED: LASIX PO SCH (06:00)
[2017-05-28] MEDS: LASIX IV SCH ×2 (06:20→17:44)
[2017-05-28] MEDS: APRESOLINE PO SCH ×3 (07:49→19:48)
[2017-05-28] MEDS: NOVOLOG SUB-Q SCH ×4 (08:18→22:52)
[2017-05-28] MEDS ORDERED: MORPHINE IV PRN ×2 (08:50)
[2017-05-28] MEDS ORDERED: DULCOLAX PR PRN (08:50)
[2017-05-28] MEDS ORDERED: MILK OF MAGNESIA PO PRN (08:50)
[2017-05-28] MEDS ORDERED: ZOFRAN IV PRN (08:50)
[2017-05-28] MEDS ORDERED: PERCOCET 5/325 PO PRN (08:50)
[2017-05-28] MEDS: AMARYL PO SCH (09:00)
[2017-05-28] MEDS: PHOSLO PO SCH ×3 (09:00→17:43)
[2017-05-28] MEDS: ROCALTROL PO SCH (09:17)
[2017-05-28] MEDS: FEOSOL PO SCH (09:17)
[2017-05-28] MEDS: PROTONIX PO SCH ×2 (09:17→21:39)
[2017-05-28] MEDS: BABY ASPIRIN PO SCH (09:17)
[2017-05-28] MEDS: Renal Caps PO SCH (09:17)
[2017-05-28] MEDS: K-DUR PO SCH (09:17)
--- NOTE | 2017-05-28 12:00 | Consultation ---
History of Present Illness - Reason for Consult Consult date: 05/28/17 chronic renal failure, accelerated hypertension - History of Present Illness The patient is a 72 YO [place]ian [place] with medical history significant for Type 2 DM, Uncontrolled HTN, HLD, Anemia, Legal blindness, CKD stage 5 and medical non-compliance who came to the hospital with altered mental status. History was also obtained from previous documentation. She was found to be hypoglycemic in the ER with BG of 32. Patient became more responsive after IV D50. Patient denies any fever, CANALES, hemoptysis, cp, syncope, rash, dysuria, hematuria, N, V, D, abd pain or diplopia. Her initial BP was around 220/100. Labs significant for creatinine of 3.5. Patient is well known to our service from office visit and previous admission. She was recommended to start on hemodialysis during last admission but her son refused. Past History Past Medical History: anemia, diabetes, hypertension, hyperlipidemia, renal failure Medications and Allergies Allergies Allergy/AdvReac Type Severity Reaction Status Date / Time No Known Allergies Allergy Unverified 07/14/14 15:02 Home Medications Medication Instructions Recorded Confirmed Last Taken Type Aspirin [Aspirin BABY CHEW TAB] 81 mg PO QDAY #30 tab.chew 04/21/17 05/30/17 Unknown Rx AtorvaSTATin [Lipitor] 40 mg PO QHS tablet 04/21/17 05/30/17 Unknown Rx Calcitriol [Rocaltrol] 0.25 mcg PO QDAY #30 capsule 04/21/17 05/30/17 Unknown Rx Calcium Acetate [Phoslo] 667 mg PO TIDWM #90 capsule 04/21/17 05/30/17 Unknown Rx Carvedilol [Coreg] 12.5 mg PO BID #60 tablet 04/21/17 05/30/17 Unknown Rx Ferrous Sulfate [Feosol 325 MG tab] 325 mg PO QDAY #30 tablet 04/21/17 05/30/17 Unknown Rx Folic Acid/Vit B Comp W-C [Renal 1 cap PO QDAY #30 capsule 04/21/17 05/30/17 Unknown Rx Caps] Furosemide [Lasix TAB] 40 mg PO 0600,1800 #60 tablet 04/21/17 05/30/17 Unknown Rx Glimepiride [Amaryl] 2 mg PO QDDIAB tablet 04/21/17 05/30/17 Unknown Rx Latanoprost 1 drop OU QHS 04/21/17 05/30/17 04/14/17 21:00 History 1 drop NovoLIN 70/30 6 units SQ Q12HR #1 vial 04/21/17 05/30/17 04/14/17 Rx Pantoprazole [Protonix TAB] 40 mg PO BID #60 tablet 04/21/17 05/30/17 Unknown Rx Zolpidem [Ambien] 5 mg PO QHS PRN tablet 04/21/17 05/30/17 Unknown Rx hydrALAZINE [Apresoline TAB] 100 mg PO TID #90 tab 04/21/17 05/30/17 Unknown Rx Active Meds: Active Medications Acetaminophen (Tylenol) 650 mg PO Q4H PRN PRN Reason: Pain MILD(1-3)/Fever >100.5/CANALES Albuterol (Proventil) 2.5 mg IH Q4HRT PRN PRN Reason: Shortness Of Breath Aspirin (Baby Aspirin) 81 mg PO QDAY [facility] Last Admin: 05/28/17 09:17 Dose: 81 mg Atorvastatin Calcium (Lipitor) 40 mg PO QHS [facility] Bisacodyl (Dulcolax) 10 mg [place] QDAY PRN PRN Reason: Constipation unrelieved by MOM Calcitriol (Rocaltrol) 0.25 mcg PO QDAY [facility] Last Admin: 05/28/17 09:17 Dose: 0.25 mcg Calcium Acetate (Phoslo) 667 mg PO TIDWM [facility] Last Admin: 05/28/17 09:00 Dose: 667 mg Carvedilol (Coreg) 12.5 mg PO BID [facility] Last Admin: 05/28/17 09:20 Dose: 12.5 mg Ferrous Sulfate (Feosol) 325 mg PO QDAY [facility] Last Admin: 05/28/17 09:17 Dose: 325 mg Furosemide (Lasix) 40 mg IV 0600,1800 [facility] Last Admin: 05/28/17 06:20 Dose: 40 mg Glimepiride (Amaryl) 2 mg PO QDDIAB [facility] Last Admin: 05/28/17 09:00 Dose: 2 mg Hydralazine HCl (Apresoline) 100 mg PO TID [facility] Last Admin: 05/28/17 07:49 Dose: 100 mg Insulin Aspart (Novolog) 0 units SUB-Q ACHS [facility] PRN Reason: Protocol Last Admin: 05/28/17 08:18 Dose: Not Given Insulin Human Isoph/Insulin Regular (Novolin 70/30) 6 unit SUB-Q BID [facility] Latanoprost (Xalatan 0.005%) 1 drops OU QHS [facility] Magnesium Hydroxide (Milk Of Magnesia) 30 ml PO Q4H PRN PRN Reason: Constipation Morphine Sulfate (Morphine) 2 mg IV Q4H PRN PRN Reason: Pain, Moderate (4-6) Morphine Sulfate (Morphine) 4 mg IV Q4H PRN PRN Reason: Pain , Severe (7-10) Multivit/Ca Carb/B Cmplx/FA/Prenat (Renal Caps) 1 cap PO QDAY [facility] Last Admin: 05/28/17 09:17 Dose: 1 cap Nitroglycerin (Nitrostat) 0.4 mg SL .Q5MIN PRN PRN Reason: Chest Pain Ondansetron HCl (Zofran) 4 mg IV Q8H PRN PRN Reason: N/V unrelieved by Reglan Oxycodone/Acetaminophen (Percocet 5/325) 1 tab PO Q6H PRN PRN Reason: Pain, Moderate (4-6) Pantoprazole Sodium (Protonix) 40 mg PO BID [facility] Last Admin: 05/28/17 09:17 Dose: 40 mg Potassium Chloride (K-Dur) 20 meq PO QDAY [facility] Last Admin: 05/28/17 09:17 Dose: 20 meq Zolpidem Tartrate (Ambien) 5 mg PO QHS PRN PRN Reason: Insomnia Review of Systems ROS unobtainable: due to mental status Exam - Vital Signs Vital signs: Vital Signs Pulse Resp 72 18 05/27/17 14:57 05/27/17 14:57 - General Appearance General appearance: well-developed, well-nourished, appears stated age, other ( no distress) EENT: ATNC, mucous membranes moist, hearing intact Neck: Present: neck supple, trachea midline Respiratory: Clear to Ascultation Heart: regular, S1S2, no murmurs Gastrointestinal: Present: normoactive bowel sounds. Absent: tenderness, distended Integumentary: no rash, warm and dry Neurologic: no asterixis, other (bilateral blindness) Musculoskeletal: Present: other (1+ edema of both LEs noted) Psychiatric: mood/affect appropriate, cooperative Results - Lab Results 05/30/17 04:59 05/30/17 04:59 Most recent lab results Calcium 8.5 mg/dL (8.4-10.2) 05/27/17 17:22 Assessment and Plan 1. CKD stage 5: Recommend starting on hemodialysis which will also help in BP and volume control. Will talk to her son. 2. Uncontrolled Hypertension: Continue home meds. Monitor BP. 3. Volume overload: On IV Lasix. 4. Anemia. 5. Hypoglycemia: Improved.
--- NOTE | 2017-05-28 13:23 | Consultation ---
History of Present Illness Consult date: 05/28/17 Consult reason: congestive heart failure History of present illness: The patient is a 72-year-old woman with multiple medical problems. She has chronic kidney disease with a creatinine currently 3.5. She has chronic anemia with a hematocrit of 27-28. She has diabetes and chronic severe uncontrolled hypertension. She was also hospitalized just last month with fluid overload. Cardiac evaluation with echocardiogram at that time showed left ventricular ejection fraction 45-50%, with moderate to severe mitral regurgitation. A diagnosis of heart failure with preserved ejection fraction, noting that her fluid overload was likely multifactorial, associated with advanced renal failure , anemia, uncontrolled hypertension and a moderate to severe regurgitant mitral lesion. She did well on medical therapy and conservative management, and was discharged for outpatient follow-up. The patient presents at this time with altered mental status and severe hypoglycemia with a blood sugar 42. On further evaluation, there was also evidence of mild fluid overload. The chest x-ray revealed some pulmonary vascular congestion, with small bilateral pleural effusions. Cardiology consultation is requested for further management of her heart failure with preserved ejection fraction. It will be noted that she remains severely hypotensive, with current systolic blood pressures averaging 190-200s. Past History Past Medical History: diabetes, heart failure, hypertension Medications and Allergies Allergies Allergy/AdvReac Type Severity Reaction Status Date / Time No Known Allergies Allergy Unverified 07/14/14 15:02 Home Medications Medication Instructions Recorded Confirmed Last Taken Type Aspirin [Aspirin BABY CHEW TAB] 81 mg PO QDAY #30 tab.chew 04/21/17 Unknown Rx AtorvaSTATin [Lipitor] 40 mg PO QHS tablet 04/21/17 Unknown Rx Calcitriol [Rocaltrol] 0.25 mcg PO QDAY #30 capsule 04/21/17 Unknown Rx Calcium Acetate [Phoslo] 667 mg PO TIDWM #90 capsule 04/21/17 Unknown Rx Carvedilol [Coreg] 12.5 mg PO BID #60 tablet 04/21/17 Unknown Rx Ferrous Sulfate [Feosol 325 MG tab] 325 mg PO QDAY #30 tablet 04/21/17 Unknown Rx Folic Acid/Vit B Comp W-C [Renal 1 cap PO QDAY #30 capsule 04/21/17 Unknown Rx Caps] Furosemide [Lasix TAB] 40 mg PO 0600,1800 #60 tablet 04/21/17 Unknown Rx Glimepiride [Amaryl] 2 mg PO QDDIAB tablet 04/21/17 Unknown Rx Latanoprost 1 drop OU QHS 04/21/17 04/21/17 04/14/17 21:00 History 1 drop NovoLIN 70/30 6 units SQ Q12HR #1 vial 04/21/17 04/14/17 Rx Pantoprazole [Protonix TAB] 40 mg PO BID #60 tablet 04/21/17 Unknown Rx Zolpidem [Ambien] 5 mg PO QHS PRN tablet 04/21/17 Unknown Rx hydrALAZINE [Apresoline TAB] 100 mg PO TID #90 tab 04/21/17 Unknown Rx Active Meds: Active Medications Acetaminophen (Tylenol) 650 mg PO Q4H PRN PRN Reason: Pain MILD(1-3)/Fever >100.5/CANALES Albuterol (Proventil) 2.5 mg IH Q4HRT PRN PRN Reason: Shortness Of Breath Aspirin (Baby Aspirin) 81 mg PO QDAY [facility] Last Admin: 05/28/17 09:17 Dose: 81 mg Atorvastatin Calcium (Lipitor) 40 mg PO QHS [facility] Bisacodyl (Dulcolax) 10 mg [place] QDAY PRN PRN Reason: Constipation unrelieved by MOM Calcitriol (Rocaltrol) 0.25 mcg PO QDAY [facility] Last Admin: 05/28/17 09:17 Dose: 0.25 mcg Calcium Acetate (Phoslo) 667 mg PO TIDWM [facility] Last Admin: 05/28/17 12:46 Dose: 667 mg Carvedilol (Coreg) 25 mg PO BID [facility] Ferrous Sulfate (Feosol) 325 mg PO QDAY [facility] Last Admin: 05/28/17 09:17 Dose: 325 mg Furosemide (Lasix) 40 mg IV 0600,1800 [facility] Last Admin: 05/28/17 06:20 Dose: 40 mg Glimepiride (Amaryl) 2 mg PO QDDIAB [facility] Last Admin: 05/28/17 09:00 Dose: 2 mg Hydralazine HCl (Apresoline) 100 mg PO TID [facility] Last Admin: 05/28/17 07:49 Dose: 100 mg Insulin Aspart (Novolog) 0 units SUB-Q ACHS [facility] PRN Reason: Protocol Last Admin: 05/28/17 12:44 Dose: 3 units Insulin Human Isoph/Insulin Regular (Novolin 70/30) 6 unit SUB-Q BID [facility] Last Admin: 05/28/17 11:00 Dose: 6 unit Latanoprost (Xalatan 0.005%) 1 drops OU QHS [facility] Magnesium Hydroxide (Milk Of Magnesia) 30 ml PO Q4H PRN PRN Reason: Constipation Morphine Sulfate (Morphine) 2 mg IV Q4H PRN PRN Reason: Pain, Moderate (4-6) Morphine Sulfate (Morphine) 4 mg IV Q4H PRN PRN Reason: Pain , Severe (7-10) Multivit/Ca Carb/B Cmplx/FA/Prenat (Renal Caps) 1 cap PO QDAY [facility] Last Admin: 05/28/17 09:17 Dose: 1 cap Nitroglycerin (Nitrostat) 0.4 mg SL .Q5MIN PRN PRN Reason: Chest Pain Ondansetron HCl (Zofran) 4 mg IV Q8H PRN PRN Reason: N/V unrelieved by Reglan Oxycodone/Acetaminophen (Percocet 5/325) 1 tab PO Q6H PRN PRN Reason: Pain, Moderate (4-6) Pantoprazole Sodium (Protonix) 40 mg PO BID [facility] Last Admin: 05/28/17 09:17 Dose: 40 mg Potassium Chloride (K-Dur) 20 meq PO QDAY [facility] Last Admin: 05/28/17 09:17 Dose: 20 meq Zolpidem Tartrate (Ambien) 5 mg PO QHS PRN PRN Reason: Insomnia Review of Systems Cardiovascular: edema, shortness of breath, no chest pain, no orthopnea, no palpitations, no rapid/irregular heart beat, no syncope, no lightheadedness Physical Examination Vital Signs Pulse Resp 72 18 05/27/17 14:57 05/27/17 14:57 General appearance: no acute distress HEENT: Positive: PERRL Neck: Positive: neck supple Cardiac: Positive: Reg Rate and Rhythm Lungs: Positive: Decreased Breath Sounds Neuro: Positive: Grossly Intact Abdomen: Positive: Soft Female genitourinary: deferred Skin: Positive: Clear Extremities: Present: +1 Edema Results 05/27/17 17:22 05/27/17 17:22 Cardiac Enzymes 05/27/17 05/27/17 Range/Units 15:47 17:22 AST 23 24 (5-40) units/L CK-MB (CK-2) 4.5 H (0.0-4.0) ng/mL Coagulation 05/27/17 Range/Units 17:22 PT 14.0 (12.2-14.9) Sec. INR 1.03 (0.87-1.13) APTT 29.9 (24.2-36.6) Sec. Lipids 05/27/17 Range/Units 17:22 Triglycerides 87 (2-149) mg/dL Cholesterol 136 (50-199) mg/dL HDL Cholesterol 60 H (40-59) mg/dL Cholesterol/HDL Ratio 2.26 % CBC 05/27/17 05/27/17 Range/Units 15:47 17:22 WBC 6.2 6.6 (4.5-11.0) K/mm3 RBC 2.92 L 2.93 L (3.65-5.03) M/mm3 Hgb 9.3 L 9.3 L (10.1-14.3) gm/dl Hct 27.7 L 28.3 L (30.3-42.9) % Plt Count 160 154 (140-440) K/mm3 Lymph # 0.6 L 0.5 L (1.2-5.4) K/mm3 [place] # 0.4 0.3 (0.0-0.8) K/mm3 Eos # 0.1 0.0 (0.0-0.4) K/mm3 Baso # 0.0 0.0 (0.0-0.1) K/mm3 Comprehensive Metabolic Panel 05/27/17 05/27/17 Range/Units 15:47 17:22 Sodium 139 139 (137-145) mmol/L Potassium 4.2 4.5 (3.6-5.0) mmol/L Chloride 101.7 101.4 (98-107) mmol/L Carbon Dioxide 19 L 18 L (22-30) mmol/L BUN 58 H 59 H (7-17) mg/dL Creatinine 3.4 H 3.5 H (0.7-1.2) mg/dL Glucose 32 L* 98 (65-100) mg/dL Calcium 8.6 8.5 (8.4-10.2) mg/dL AST 23 24 (5-40) units/L ALT 24 24 (7-56) units/L Alkaline Phosphatase 78 77 (35-129) units/L Total Protein 6.5 6.4 (6.3-8.2) g/dL Albumin 3.5 L 3.7 L (3.9-5) g/dL EKG interpretations - Telemetry EKG Rhythm: Sinus Rhythm Assessment and Plan - Patient Problems (1) Heart failure with preserved ejection fraction Current Visit: Yes Status: Acute Plan to address problem: We will recommend aggressive treatment of hypertension with the addition of Procardia XL. Management of fluid overload with diuretics as tolerated, and management of renal failure. (2) Uncontrolled hypertension Current Visit: Yes Status: Acute Plan to address problem: Aggressive blood pressure control with a combination therapy to include Procardia XL.
[2017-05-28] MEDS: PROCARDIA XL PO SCH (17:42)
[2017-05-28] MEDS: TYLENOL PO PRN (17:42)
[2017-05-28] MEDS ORDERED: APRESOLINE IV PRN (18:02)
--- NOTE | 2017-05-28 18:19 | Progress Note ---
Assessment and Plan Assessment and plan: 72 y/o female with multiple medicalproblems including HTN IDDM CKD HLD and GERD brought in for altered sensorium and decreased responsiveness found to be hypoglycemic Acute metabolic encephalopathy resolved after hypoglycemia was corrected Hypoglycemia in Type 2 DM now resolved, a1c 6.2 reduce insulin dose Acute on chronic diastolic CHF exacerbation Case dw cardiology IV Lasix initiated BNP 51177 CKD stage 5 (chronic kidney disease) Nephrology consult appreciated avoid nephrotoxins Hypertensive urgency optimized Antihypertensives HLD (hyperlipidemia) cont statins GERD (gastroesophageal reflux disease) Cont PPI's DVT prophylaxis on lovenox History Interval history: c/o of CANALES and LEWIS Review of systems Constitutional: No fevers, no malaise, no joint pains CVS: No chest pain, no orthopnea, , no pedal edema GI: No abdominal pain, no diarrhea, no vomiting, no constipation Respiratory: No shortness of breath, no wheezing, no coughing Hospitalist Physical - Constitutional Vitals: Temp Pulse Resp BP Pulse Ox 97.4 F L 68 20 213/90 98 05/28/17 18:03 05/28/17 18:03 05/28/17 18:03 05/28/17 18:03 05/28/17 18:03 General appearance: Present: no acute distress - EENT Eyes: Present: PERRL - Neck Neck: Present: supple - Respiratory Respiratory effort: normal Respiratory: bilateral: CTA - Cardiovascular Rhythm: regular Heart Sounds: Present: S1 & S2 - Extremities Extremities: no ischemia Peripheral Pulses: within normal limits - Abdominal General gastrointestinal: soft, non-tender - Integumentary Integumentary: Present: clear, warm - Psychiatric Psychiatric: appropriate mood/affect - Neurologic Neurologic: CNII-XII intact Results - Labs CBC & Chem 7: 05/27/17 17:22 05/27/17 17:22 Labs: Laboratory Last Values WBC 6.6 K/mm3 (4.5-11.0) 05/27/17 17:22 RBC 2.93 M/mm3 (3.65-5.03) L 05/27/17 17:22 Hgb 9.3 gm/dl (10.1-14.3) L 05/27/17 17:22 Hct 28.3 % (30.3-42.9) L 05/27/17 17:22 MCV 97 fl (79-97) 05/27/17 17:22 MCH 32 pg (28-32) 05/27/17 17:22 MCHC 33 % (30-34) 05/27/17 17:22 RDW 15.5 % (13.2-15.2) H 05/27/17 17:22 Plt Count 154 K/mm3 (140-440) 05/27/17 17:22 Lymph % (Auto) 7.4 % (13.4-35.0) L 05/27/17 17:22 [place] % (Auto) 4.3 % (0.0-7.3) 05/27/17 17:22 Eos % (Auto) 0.4 % (0.0-4.3) 05/27/17 17:22 Baso % (Auto) 0.7 % (0.0-1.8) 05/27/17 17:22 Lymph # 0.5 K/mm3 (1.2-5.4) L 05/27/17 17:22 [place] # 0.3 K/mm3 (0.0-0.8) 05/27/17 17:22 Eos # 0.0 K/mm3 (0.0-0.4) 05/27/17 17:22 Baso # 0.0 K/mm3 (0.0-0.1) 05/27/17 17:22 Seg Neutrophils % 87.2 % (40.0-70.0) H 05/27/17 17:22 Seg Neutrophils # 5.7 K/mm3 (1.8-7.7) 05/27/17 17:22 PT 14.0 Sec. (12.2-14.9) 05/27/17 17:22 INR 1.03 (0.87-1.13) 05/27/17 17:22 APTT 29.9 Sec. (24.2-36.6) 05/27/17 17:22 Sodium 139 mmol/L (137-145) 05/27/17 17:22 Potassium 4.5 mmol/L (3.6-5.0) 05/27/17 17:22 Chloride 101.4 mmol/L (98-107) 05/27/17 17:22 Carbon Dioxide 18 mmol/L (22-30) L 05/27/17 17:22 Anion Gap 24 mmol/L 05/27/17 17:22 BUN 59 mg/dL (7-17) H 05/27/17 17:22 Creatinine 3.5 mg/dL (0.7-1.2) H 05/27/17 17:22 Estimated GFR 13 ml/min 05/27/17 17:22 BUN/Creatinine Ratio 17 % 05/27/17 17:22 Glucose 98 mg/dL (65-100) 05/27/17 17:22 POC Glucose 197 (70-105) H 05/28/17 16:47 Hemoglobin A1c 6.2 % (4-6) H 05/28/17 05:49 Lactic Acid 0.80 mmol/L (0.7-2.0) 05/27/17 17:22 Calcium 8.5 mg/dL (8.4-10.2) 05/27/17 17:22 Total Bilirubin 0.40 mg/dL (0.1-1.2) 05/27/17 17:22 AST 24 units/L (5-40) 05/27/17 17:22 ALT 24 units/L (7-56) 05/27/17 17:22 Alkaline Phosphatase 77 units/L (35-129) 05/27/17 17:22 Ammonia 43.0 umol/L (25-60) 05/27/17 17:22 Total Creatine Kinase 110 units/L (30-135) 05/27/17 17:22 CK-MB (CK-2) 4.5 ng/mL (0.0-4.0) H 05/27/17 17:22 CK-MB (CK-2) Rel Index 4.0 (0-4) 05/27/17 17:22 Troponin T 0.030 ng/mL (0.00-0.029) H 05/27/17 17:22 NT-Pro-B Natriuret Pep > 39379 pg/mL (0-900) H 05/27/17 17:22 Total Protein 6.4 g/dL (6.3-8.2) 05/27/17 17:22 Albumin 3.7 g/dL (3.9-5) L 05/27/17 17:22 Albumin/Globulin Ratio 1.4 % 05/27/17 17:22 Triglycerides 87 mg/dL (2-149) 05/27/17 17:22 Cholesterol 136 mg/dL (50-199) 05/27/17 17:22 LDL Cholesterol Direct 59 mg/dL (50-130) 05/27/17 17:22 HDL Cholesterol 60 mg/dL (40-59) H 05/27/17 17:22 Cholesterol/HDL Ratio 2.26 % 05/27/17 17:22 Lipase 50 units/L (13-60) 05/27/17 17:22 TSH 4.020 mlU/mL (0.270-4.200) 05/27/17 15:47 Urine Color Yellow (Yellow) 05/27/17 18:25 Urine Turbidity Clear (Clear) 05/27/17 18:25 Urine pH 7.0 (5.0-7.0) 05/27/17 18:25 Ur Specific [place] 1.012 (1.003-1.030) 05/27/17 18:25 Urine Protein >500 mg/dL (Negative) 05/27/17 18:25 Urine Glucose (UA) 150 mg/dL (Negative) 05/27/17 18:25 Urine Ketones Neg mg/dL (Negative) 05/27/17 18:25 Urine Blood Neg (Negative) 05/27/17 18:25 Urine Nitrite Neg (Negative) 05/27/17 18:25 Urine Bilirubin Neg (Negative) 05/27/17 18:25 Urine Urobilinogen < 2.0 mg/dL (<2.0) 05/27/17 18:25 Ur Leukocyte Esterase Neg (Negative) 05/27/17 18:25 Urine WBC (Auto) 1.0 /HPF (0.0-6.0) 05/27/17 18:25 Urine RBC (Auto) 9.0 /HPF (0.0-6.0) 05/27/17 18:25 Urine Bacteria (Auto) 1+ /HPF (Negative) 05/27/17 18:25 Urine Opiates Screen Presumptive negative 05/27/17 18:25 Urine Methadone Screen Presumptive negative 05/27/17 18:25 Ur Barbiturates Screen Presumptive negative 05/27/17 18:25 Ur Phencyclidine Scrn Presumptive negative 05/27/17 18:25 Ur Amphetamines Screen Presumptive negative 05/27/17 18:25 U Benzodiazepines Scrn Presumptive negative 05/27/17 18:25 Urine Cocaine Screen Presumptive negative 05/27/17 18:25 U Marijuana (THC) Screen Presumptive negative 05/27/17 18:25 Drugs of Abuse Note Disclamer 05/27/17 18:25 Plasma/Serum Alcohol < 0.01 gm% (0-0.07) 05/27/17 15:47 - Imaging and Cardiology Chest x-ray: image reviewed (cardiomegaly, pulm venous htn changes)
[2017-05-28] MEDS: CARDURA PO SCH (19:48)
[2017-05-28] MEDS: CATAPRES PO SCH (21:40)
[2017-05-28] MEDS: COREG PO SCH (21:41)
[2017-05-28] MEDS: XALATAN 0.005% OU SCH (21:42)
[2017-05-28] MEDS ORDERED: LEVEMIR SUB-Q SCH (22:00)
[2017-05-29] MEDS ORDERED: D50W (25GM) Syringe IV ONE (03:37)
[2017-05-29] MEDS ORDERED: GLUCAGEN IV ONE (04:27)
[2017-05-29] MEDS: LASIX IV SCH (05:35)
[2017-05-29] MEDS: PHOSLO PO SCH ×2 (08:11→12:59)
--- NOTE | 2017-05-29 08:33 | Progress Note ---
Assessment and Plan 1. CKD stage 5: Recommend starting on hemodialysis which will also help in BP and volume control. Talked to her son over the phone and he is going to call me later. 2. Uncontrolled Hypertension: Continue home meds. Monitor BP. 3. Volume overload: On IV Lasix. 4. Anemia. 5. Hypoglycemia: Monitor blood sugar. Subjective Date of service: 05/29/17 Interval history: Patient is doing ok. No new complaint. Objective - Vital Signs Vital signs: Vital Signs - 12hr 05/28/17 05/28/17 05/28/17 20:50 20:55 21:40 Temperature 98.5 F Pulse Rate 68 68 64 Respiratory 20 Rate Blood Pressure 195/80 213/90 Blood Pressure [Left] O2 Sat by Pulse 98 Oximetry 05/28/17 05/28/17 05/28/17 21:41 22:00 23:48 Temperature Pulse Rate 64 50 L Respiratory 20 Rate Blood Pressure 213/90 Blood Pressure [Left] O2 Sat by Pulse 97 Oximetry 05/29/17 04:33 Temperature 97.5 F L Pulse Rate 68 Respiratory 20 Rate Blood Pressure Blood Pressure 132/46 [Left] O2 Sat by Pulse 97 Oximetry - General Appearance General appearance: well-developed, well-nourished, appears stated age, other ( no distress) EENT: ATNC, mucous membranes moist, hearing intact Neck: supple Respiratory: Present: Clear to Ascultation Cardiology: regular, S1S2, no murmurs Gastrointestinal: normoactive bowel sounds, no tenderness, no distended Integumentary: no rash, warm and dry Neurologic: no asterixis, alert and oriented x3, other (bilateral blindness) Musculoskeletal: other (1+ edema of both LEs noted) Psychiatric: mood/affect appropriate, cooperative - Lab 05/30/17 04:59 05/30/17 04:59 Most recent lab results Calcium 8.5 mg/dL (8.4-10.2) 05/27/17 17:22
[2017-05-29] MEDS: APRESOLINE PO SCH ×3 (08:45→22:58)
[2017-05-29] MEDS: NOVOLOG SUB-Q SCH ×4 (09:38→22:06)
[2017-05-29] MEDS: AMARYL PO SCH (09:39)
[2017-05-29] MEDS: ROCALTROL PO SCH (10:10)
[2017-05-29] MEDS: BABY ASPIRIN PO SCH (10:10)
[2017-05-29] MEDS: Renal Caps PO SCH (10:10)
[2017-05-29] MEDS: FEOSOL PO SCH (10:10)
[2017-05-29] MEDS: CARDURA PO SCH (10:11)
[2017-05-29] MEDS: PROCARDIA XL PO SCH (10:12)
[2017-05-29] MEDS: PROTONIX PO SCH ×2 (10:12→23:01)
[2017-05-29] MEDS: COREG PO SCH ×2 (10:12→22:58)
[2017-05-29] MEDS: CATAPRES PO SCH (10:15)
[2017-05-29] MEDS: K-DUR PO SCH (10:15)
--- NOTE | 2017-05-29 10:41 | Progress Note ---
Assessment and Plan AMS Hypoglycemia Hypertension -better CHF, diastolic EF 45-50% on echocardiogram 03/2017 Anemia Chronic renal failure Normal stress thallium test 10/2016 at [facility]. Continue medical therapy for heart failure with a preserved ejection fraction. Subjective Date of service: 05/29/17 Interval history: Patient is resting comfortably. No cardiac events reported. Objective Vital Signs Temp Pulse Resp BP BP Pulse Ox 05/29/17 10:15 64 122/52 05/29/17 08:10 97.3 F L 62 18 141/59 98 05/29/17 04:33 97.5 F L 68 20 132/46 97 05/28/17 23:48 20 97 05/28/17 22:00 50 L 05/28/17 21:41 64 213/90 05/28/17 21:40 64 213/90 05/28/17 20:55 98.5 F 68 20 05/28/17 20:50 68 195/80 98 05/28/17 19:48 68 213/90 05/28/17 18:30 68 213/90 05/28/17 18:03 97.4 F L 68 20 213/90 98 05/28/17 18:00 96 05/28/17 17:51 69 204/83 99 05/28/17 17:47 70 209/80 99 05/28/17 17:37 71 209/76 98 05/28/17 15:03 98.9 F 76 20 196/60 98 05/28/17 12:49 192/79 - Physical Examination General: No Apparent Distress Cardiac: Positive: Reg Rate and Rhythm Neuro: Positive: Grossly Intact - Imaging and Cardiology EKG: report reviewed
--- NOTE | 2017-05-29 15:39 | Progress Note ---
Assessment and Plan Assessment and plan: 72 y/o female with multiple medicalproblems including HTN IDDM CKD HLD and GERD brought in for altered sensorium and decreased responsiveness found to be hypoglycemic Acute metabolic encephalopathy resolved after hypoglycemia was corrected Hypoglycemia in Type 2 DM now resolved, a1c 6.2 reduced insulin dose Acute on chronic diastolic CHF exacerbation Case dw cardiology IV Lasix initiated BNP 76974 CKD stage 5 (chronic kidney disease) Nephrology consult appreciated avoid nephrotoxins Hypertensive urgency optimized Antihypertensives, improved HLD (hyperlipidemia) cont statins GERD (gastroesophageal reflux disease) Cont PPI's DVT prophylaxis on lovenox History Interval history: LEWIS is improved, CANALES now resolved Review of systems Constitutional: No fevers, no malaise, no joint pains CVS: No chest pain, no orthopnea, , no pedal edema GI: No abdominal pain, no diarrhea, no vomiting, no constipation Respiratory: No shortness of breath at rest, only on exertion, no wheezing, no coughing Hospitalist Physical - Physical exam Narrative exam: General appearance: Present: no acute distress - EENT Eyes: Present: PERRL - Neck Neck: Present: supple - Respiratory Respiratory effort: normal Respiratory: bilateral: CTA - Cardiovascular Rhythm: regular Heart Sounds: Present: S1 & S2 - Extremities Extremities: no ischemia Peripheral Pulses: within normal limits - Abdominal General gastrointestinal: soft, non-tender - Integumentary Integumentary: Present: clear, warm - Psychiatric Psychiatric: appropriate mood/affect - Neurologic Neurologic: CNII-XII intact - Constitutional Vitals: Temp Pulse Resp BP Pulse Ox 97.9 F 66 18 112/43 97 05/29/17 13:20 05/29/17 13:20 05/29/17 13:20 05/29/17 13:20 05/29/17 13:20 General appearance: Present: no acute distress Results - Labs CBC & Chem 7: 05/27/17 17:22 05/27/17 17:22 Labs: Laboratory Last Values WBC 6.6 K/mm3 (4.5-11.0) 05/27/17 17:22 RBC 2.93 M/mm3 (3.65-5.03) L 05/27/17 17:22 Hgb 9.3 gm/dl (10.1-14.3) L 05/27/17 17:22 Hct 28.3 % (30.3-42.9) L 05/27/17 17:22 MCV 97 fl (79-97) 05/27/17 17:22 MCH 32 pg (28-32) 05/27/17 17:22 MCHC 33 % (30-34) 05/27/17 17:22 RDW 15.5 % (13.2-15.2) H 05/27/17 17:22 Plt Count 154 K/mm3 (140-440) 05/27/17 17:22 Lymph % (Auto) 7.4 % (13.4-35.0) L 05/27/17 17:22 [place] % (Auto) 4.3 % (0.0-7.3) 05/27/17 17:22 Eos % (Auto) 0.4 % (0.0-4.3) 05/27/17 17:22 Baso % (Auto) 0.7 % (0.0-1.8) 05/27/17 17:22 Lymph # 0.5 K/mm3 (1.2-5.4) L 05/27/17 17:22 [place] # 0.3 K/mm3 (0.0-0.8) 05/27/17 17:22 Eos # 0.0 K/mm3 (0.0-0.4) 05/27/17 17:22 Baso # 0.0 K/mm3 (0.0-0.1) 05/27/17 17:22 Seg Neutrophils % 87.2 % (40.0-70.0) H 05/27/17 17:22 Seg Neutrophils # 5.7 K/mm3 (1.8-7.7) 05/27/17 17:22 PT 14.0 Sec. (12.2-14.9) 05/27/17 17:22 INR 1.03 (0.87-1.13) 05/27/17 17:22 APTT 29.9 Sec. (24.2-36.6) 05/27/17 17:22 Sodium 139 mmol/L (137-145) 05/27/17 17:22 Potassium 4.5 mmol/L (3.6-5.0) 05/27/17 17:22 Chloride 101.4 mmol/L (98-107) 05/27/17 17:22 Carbon Dioxide 18 mmol/L (22-30) L 05/27/17 17:22 Anion Gap 24 mmol/L 05/27/17 17:22 BUN 59 mg/dL (7-17) H 05/27/17 17:22 Creatinine 3.5 mg/dL (0.7-1.2) H 05/27/17 17:22 Estimated GFR 13 ml/min 05/27/17 17:22 BUN/Creatinine Ratio 17 % 05/27/17 17:22 Glucose 98 mg/dL (65-100) 05/27/17 17:22 POC Glucose 208 (70-105) H 05/29/17 11:49 Hemoglobin A1c 6.2 % (4-6) H 05/28/17 05:49 Lactic Acid 0.80 mmol/L (0.7-2.0) 05/27/17 17:22 Calcium 8.5 mg/dL (8.4-10.2) 05/27/17 17:22 Total Bilirubin 0.40 mg/dL (0.1-1.2) 05/27/17 17:22 AST 24 units/L (5-40) 05/27/17 17:22 ALT 24 units/L (7-56) 05/27/17 17:22 Alkaline Phosphatase 77 units/L (35-129) 05/27/17 17:22 Ammonia 43.0 umol/L (25-60) 05/27/17 17:22 Total Creatine Kinase 110 units/L (30-135) 05/27/17 17:22 CK-MB (CK-2) 4.5 ng/mL (0.0-4.0) H 05/27/17 17:22 CK-MB (CK-2) Rel Index 4.0 (0-4) 05/27/17 17:22 Troponin T 0.030 ng/mL (0.00-0.029) H 05/27/17 17:22 NT-Pro-B Natriuret Pep > 40124 pg/mL (0-900) H 05/27/17 17:22 Total Protein 6.4 g/dL (6.3-8.2) 05/27/17 17:22 Albumin 3.7 g/dL (3.9-5) L 05/27/17 17:22 Albumin/Globulin Ratio 1.4 % 05/27/17 17:22 Triglycerides 87 mg/dL (2-149) 05/27/17 17:22 Cholesterol 136 mg/dL (50-199) 05/27/17 17:22 LDL Cholesterol Direct 59 mg/dL (50-130) 05/27/17 17:22 HDL Cholesterol 60 mg/dL (40-59) H 05/27/17 17:22 Cholesterol/HDL Ratio 2.26 % 05/27/17 17:22 Lipase 50 units/L (13-60) 05/27/17 17:22 TSH 4.020 mlU/mL (0.270-4.200) 05/27/17 15:47 Urine Color Yellow (Yellow) 05/27/17 18:25 Urine Turbidity Clear (Clear) 05/27/17 18:25 Urine pH 7.0 (5.0-7.0) 05/27/17 18:25 Ur Specific [place] 1.012 (1.003-1.030) 05/27/17 18:25 Urine Protein >500 mg/dL (Negative) 05/27/17 18:25 Urine Glucose (UA) 150 mg/dL (Negative) 05/27/17 18:25 Urine Ketones Neg mg/dL (Negative) 05/27/17 18:25 Urine Blood Neg (Negative) 05/27/17 18:25 Urine Nitrite Neg (Negative) 05/27/17 18:25 Urine Bilirubin Neg (Negative) 05/27/17 18:25 Urine Urobilinogen < 2.0 mg/dL (<2.0) 05/27/17 18:25 Ur Leukocyte Esterase Neg (Negative) 05/27/17 18:25 Urine WBC (Auto) 1.0 /HPF (0.0-6.0) 05/27/17 18:25 Urine RBC (Auto) 9.0 /HPF (0.0-6.0) 05/27/17 18:25 Urine Bacteria (Auto) 1+ /HPF (Negative) 05/27/17 18:25 Urine Opiates Screen Presumptive negative 05/27/17 18:25 Urine Methadone Screen Presumptive negative 05/27/17 18:25 Ur Barbiturates Screen Presumptive negative 05/27/17 18:25 Ur Phencyclidine Scrn Presumptive negative 05/27/17 18:25 Ur Amphetamines Screen Presumptive negative 05/27/17 18:25 U Benzodiazepines Scrn Presumptive negative 05/27/17 18:25 Urine Cocaine Screen Presumptive negative 05/27/17 18:25 U Marijuana (THC) Screen Presumptive negative 05/27/17 18:25 Drugs of Abuse Note Disclamer 05/27/17 18:25 Plasma/Serum Alcohol < 0.01 gm% (0-0.07) 05/27/17 15:47
[2017-05-29] MEDS ORDERED: LEVEMIR SUB-Q SCH (22:00)
[2017-05-29] MEDS: XALATAN 0.005% OU SCH (23:04)
[2017-05-29] MEDS: TYLENOL PO PRN (23:07)
[2017-05-30 05:45] LABS: Basophils % (Auto) 0.3 % (0.0-1.8); Eosinophils # (Auto) 0.1 K/mm3 (0.0-0.4); Eosinophils % (Auto) 2.2 % (0.0-4.3); Hematocrit 25.6 % (30.3-42.9); Hemoglobin 8.4 gm/dl (10.1-14.3); Lymphocytes # (Auto) 0.8 K/mm3 (1.2-5.4); Lymphocytes % (Auto) 13.4 % (13.4-35.0); Mean Corpuscular HGB Conc 33 % (30-34); Mean Corpuscular Hemoglobin 32 pg (28-32); Mean Corpuscular Volume 96 fl (79-97); Monocytes # (Auto) 0.5 K/mm3 (0.0-0.8); Monocytes % (Auto) 7.9 % (0.0-7.3); Platelet Count 162 K/mm3 (140-440); Red Blood Count 2.67 M/mm3 (3.65-5.03); Red Cell Distribution Width 15.8 % (13.2-15.2)
[2017-05-30 06:05] LABS: Albumin 3.5 g/dL (3.9-5); Calcium 8.6 mg/dL (8.4-10.2)
--- NOTE | 2017-05-30 08:40 | Progress Note ---
Assessment and Plan 1. CKD stage 5: Recommend starting on hemodialysis which will also help in BP and volume control. Talked to her son today over the phone and he hasn't decided about starting his mother on hemodialysis. 2. Uncontrolled Hypertension: Continue home meds. BP is better. 3. Volume overload: On IV Lasix. 4. Hyperphosphatemia: On Phoslo. 5. Anemia. 6. Hypoglycemia: Monitor blood sugar. Subjective Date of service: 05/30/17 Interval history: Patient is doing ok. No new complaint. Objective - Vital Signs Vital signs: Vital Signs - 12hr 05/29/17 05/29/17 05/29/17 22:00 22:08 22:58 Temperature Pulse Rate 64 64 Respiratory Rate Blood Pressure 133/54 O2 Sat by Pulse 100 98 Oximetry 05/29/17 05/30/17 05/30/17 23:07 00:07 07:47 Temperature 97.8 F Pulse Rate 77 Respiratory 20 18 18 Rate Blood Pressure 153/55 O2 Sat by Pulse 99 Oximetry 05/30/17 08:03 Temperature Pulse Rate Respiratory Rate Blood Pressure O2 Sat by Pulse 98 Oximetry - General Appearance General appearance: well-developed, well-nourished, appears stated age, other ( no distress) EENT: ATNC, hearing intact Neck: supple Respiratory: Present: Clear to Ascultation Cardiology: regular, S1S2, no murmurs Gastrointestinal: normoactive bowel sounds, no tenderness, no distended Integumentary: no rash, warm and dry Neurologic: no asterixis, alert and oriented x3, other (blindness) Musculoskeletal: other (1+ edema of both LEs noted) Psychiatric: mood/affect appropriate, cooperative - Lab 05/30/17 04:59 05/30/17 04:59 Most recent lab results Calcium 8.6 mg/dL (8.4-10.2) 05/30/17 04:59 Phosphorus 5.30 mg/dL (2.5-4.5) H 05/30/17 04:59
[2017-05-30] MEDS: NOVOLOG SUB-Q SCH ×3 (08:53→16:55)
[2017-05-30] MEDS: APRESOLINE PO SCH ×2 (08:55→15:43)
[2017-05-30] MEDS: PHOSLO PO SCH ×3 (08:55→16:55)
[2017-05-30] MEDS: AMARYL PO SCH (08:56)
[2017-05-30] MEDS: Renal Caps PO SCH (09:00)
[2017-05-30] MEDS: FEOSOL PO SCH (09:00)
[2017-05-30] MEDS: K-DUR PO SCH (09:00)
[2017-05-30] MEDS: BABY ASPIRIN PO SCH (09:00)
[2017-05-30] MEDS: ROCALTROL PO SCH (09:01)
[2017-05-30] MEDS: PROTONIX PO SCH (09:01)
--- NOTE | 2017-05-30 09:36 | Progress Note ---
Assessment and Plan AMS Hypoglycemia Hypertension -better CHF, diastolic EF 45-50% on echocardiogram 03/2017 Anemia Chronic renal failure Normal stress thallium test 10/2016 at [facility]. Continue medical therapy for heart failure with a preserved ejection fraction. Stable, cardiac lima. F/U with [facility] as scheduled , once discharged. Subjective Date of service: 05/30/17 Interval history: Patient reports shortness of breath on exertion. She denies chest pain. Objective Vital Signs Temp Pulse Resp BP Pulse Ox 05/30/17 08:03 98 05/30/17 07:47 97.8 F 77 18 153/55 99 05/30/17 00:07 18 05/29/17 23:07 20 05/29/17 22:58 64 133/54 05/29/17 22:08 98 05/29/17 22:00 64 100 05/29/17 20:33 98.3 F 18 133/54 05/29/17 13:20 97.9 F 66 18 112/43 97 05/29/17 10:15 64 122/52 - Physical Examination General: No Apparent Distress HEENT: Positive: PERRL Cardiac: Positive: Reg Rate and Rhythm Neuro: Positive: Grossly Intact - Labs and Meds Cardiac Enzymes 05/30/17 Range/Units 04:59 AST 18 (5-40) units/L CBC 05/30/17 Range/Units 04:59 WBC 5.9 (4.5-11.0) K/mm3 RBC 2.67 L (3.65-5.03) M/mm3 Hgb 8.4 L (10.1-14.3) gm/dl Hct 25.6 L (30.3-42.9) % Plt Count 162 (140-440) K/mm3 Lymph # 0.8 L (1.2-5.4) K/mm3 [place] # 0.5 (0.0-0.8) K/mm3 Eos # 0.1 (0.0-0.4) K/mm3 Baso # 0.0 (0.0-0.1) K/mm3 Comprehensive Metabolic Panel 05/30/17 Range/Units 04:59 Sodium 138 (137-145) mmol/L Potassium 5.0 (3.6-5.0) mmol/L Chloride 99.0 (98-107) mmol/L Carbon Dioxide 22 (22-30) mmol/L BUN 63 H (7-17) mg/dL Creatinine 4.2 H (0.7-1.2) mg/dL Glucose 243 H (65-100) mg/dL Calcium 8.6 (8.4-10.2) mg/dL AST 18 (5-40) units/L ALT 17 (7-56) units/L Alkaline Phosphatase 70 (35-129) units/L Total Protein 5.9 L (6.3-8.2) g/dL Albumin 3.5 L (3.9-5) g/dL - Imaging and Cardiology EKG: report reviewed
[2017-05-30] MEDS: PROCARDIA XL PO SCH (10:30)
[2017-05-30] MEDS: CARDURA PO SCH (12:29)
[2017-05-30] MEDS: COREG PO SCH (12:29)
--- NOTE | 2017-05-30 13:07 | Progress Note ---
Assessment and Plan Assessment and plan: 72 y/o female with multiple medicalproblems including HTN IDDM CKD HLD and GERD brought in for altered sensorium and decreased responsiveness found to be hypoglycemic Acute metabolic encephalopathy resolved after hypoglycemia was corrected Hypoglycemia in Type 2 DM now resolved, a1c 6.2 reduced insulin dose Acute on chronic diastolic CHF exacerbation Case dw cardiology IV Lasix initiated BNP 42319 CKD stage 5 (chronic kidney disease) Nephrology consult appreciated avoid nephrotoxins Hypertensive urgency optimized Antihypertensives, improved HLD (hyperlipidemia) cont statins GERD (gastroesophageal reflux disease) Cont PPI's Anemia Likely of chronic dz Order occult blood, Will continue to monitor, transfuse if <7 DVT prophylaxis on lovenox History Interval history: Patient seen and examined. He denies chest pain shortness of breath nausea vomiting. Labs and nursing notes reviewed Hospitalist Physical - Constitutional Vitals: Temp Pulse Resp BP Pulse Ox 97.8 F 79 18 158/63 98 05/30/17 07:47 05/30/17 12:29 05/30/17 10:00 05/30/17 12:29 05/30/17 10:00 General appearance: Present: no acute distress - EENT Eyes: Present: PERRL, EOM intact ENT: hearing intact, clear oral mucosa - Neck Neck: Present: supple, normal ROM - Respiratory Respiratory effort: normal Respiratory: bilateral: CTA - Cardiovascular Rhythm: regular Heart Sounds: Present: S1 & S2 - Extremities Extremities: no ischemia, No edema Peripheral Pulses: within normal limits - Integumentary Integumentary: Present: clear, warm, dry - Psychiatric Psychiatric: appropriate mood/affect, cooperative - Neurologic Neurologic: CNII-XII intact, moves all extremities - Allied Health Allied health notes reviewed: nursing Results - Labs CBC & Chem 7: 05/30/17 04:59 05/30/17 04:59 Labs: Laboratory Last Values WBC 5.9 K/mm3 (4.5-11.0) 05/30/17 04:59 RBC 2.67 M/mm3 (3.65-5.03) L 05/30/17 04:59 Hgb 8.4 gm/dl (10.1-14.3) L 05/30/17 04:59 Hct 25.6 % (30.3-42.9) L 05/30/17 04:59 MCV 96 fl (79-97) 05/30/17 04:59 MCH 32 pg (28-32) 05/30/17 04:59 MCHC 33 % (30-34) 05/30/17 04:59 RDW 15.8 % (13.2-15.2) H 05/30/17 04:59 Plt Count 162 K/mm3 (140-440) 05/30/17 04:59 Lymph % (Auto) 13.4 % (13.4-35.0) 05/30/17 04:59 [place] % (Auto) 7.9 % (0.0-7.3) H 05/30/17 04:59 Eos % (Auto) 2.2 % (0.0-4.3) 05/30/17 04:59 Baso % (Auto) 0.3 % (0.0-1.8) 05/30/17 04:59 Lymph # 0.8 K/mm3 (1.2-5.4) L 05/30/17 04:59 [place] # 0.5 K/mm3 (0.0-0.8) 05/30/17 04:59 Eos # 0.1 K/mm3 (0.0-0.4) 05/30/17 04:59 Baso # 0.0 K/mm3 (0.0-0.1) 05/30/17 04:59 Seg Neutrophils % 76.2 % (40.0-70.0) H 05/30/17 04:59 Seg Neutrophils # 4.5 K/mm3 (1.8-7.7) 05/30/17 04:59 PT 14.0 Sec. (12.2-14.9) 05/27/17 17:22 INR 1.03 (0.87-1.13) 05/27/17 17:22 APTT 29.9 Sec. (24.2-36.6) 05/27/17 17:22 Sodium 138 mmol/L (137-145) 05/30/17 04:59 Potassium 5.0 mmol/L (3.6-5.0) 05/30/17 04:59 Chloride 99.0 mmol/L (98-107) 05/30/17 04:59 Carbon Dioxide 22 mmol/L (22-30) 05/30/17 04:59 Anion Gap 22 mmol/L 05/30/17 04:59 BUN 63 mg/dL (7-17) H 05/30/17 04:59 Creatinine 4.2 mg/dL (0.7-1.2) H 05/30/17 04:59 Estimated GFR 10 ml/min 05/30/17 04:59 BUN/Creatinine Ratio 15 % 05/30/17 04:59 Glucose 243 mg/dL (65-100) H 05/30/17 04:59 POC Glucose 219 (70-105) H 05/30/17 11:34 Hemoglobin A1c 6.2 % (4-6) H 05/28/17 05:49 Lactic Acid 0.80 mmol/L (0.7-2.0) 05/27/17 17:22 Calcium 8.6 mg/dL (8.4-10.2) 05/30/17 04:59 Phosphorus 5.30 mg/dL (2.5-4.5) H 05/30/17 04:59 Total Bilirubin 0.20 mg/dL (0.1-1.2) 05/30/17 04:59 AST 18 units/L (5-40) 05/30/17 04:59 ALT 17 units/L (7-56) 05/30/17 04:59 Alkaline Phosphatase 70 units/L (35-129) 05/30/17 04:59 Ammonia 43.0 umol/L (25-60) 05/27/17 17:22 Total Creatine Kinase 110 units/L (30-135) 05/27/17 17:22 CK-MB (CK-2) 4.5 ng/mL (0.0-4.0) H 05/27/17 17:22 CK-MB (CK-2) Rel Index 4.0 (0-4) 05/27/17 17:22 Troponin T 0.030 ng/mL (0.00-0.029) H 05/27/17 17:22 NT-Pro-B Natriuret Pep > 42646 pg/mL (0-900) H 05/27/17 17:22 Total Protein 5.9 g/dL (6.3-8.2) L 05/30/17 04:59 Albumin 3.5 g/dL (3.9-5) L 05/30/17 04:59 Albumin/Globulin Ratio 1.5 % 05/30/17 04:59 Triglycerides 87 mg/dL (2-149) 05/27/17 17:22 Cholesterol 136 mg/dL (50-199) 05/27/17 17:22 LDL Cholesterol Direct 59 mg/dL (50-130) 05/27/17 17:22 HDL Cholesterol 60 mg/dL (40-59) H 05/27/17 17:22 Cholesterol/HDL Ratio 2.26 % 05/27/17 17:22 Lipase 50 units/L (13-60) 05/27/17 17:22 TSH 4.020 mlU/mL (0.270-4.200) 05/27/17 15:47 Urine Color Yellow (Yellow) 05/27/17 18:25 Urine Turbidity Clear (Clear) 05/27/17 18:25 Urine pH 7.0 (5.0-7.0) 05/27/17 18:25 Ur Specific [place] 1.012 (1.003-1.030) 05/27/17 18:25 Urine Protein >500 mg/dL (Negative) 05/27/17 18:25 Urine Glucose (UA) 150 mg/dL (Negative) 05/27/17 18:25 Urine Ketones Neg mg/dL (Negative) 05/27/17 18:25 Urine Blood Neg (Negative) 05/27/17 18:25 Urine Nitrite Neg (Negative) 05/27/17 18:25 Urine Bilirubin Neg (Negative) 05/27/17 18:25 Urine Urobilinogen < 2.0 mg/dL (<2.0) 05/27/17 18:25 Ur Leukocyte Esterase Neg (Negative) 05/27/17 18:25 Urine WBC (Auto) 1.0 /HPF (0.0-6.0) 05/27/17 18:25 Urine RBC (Auto) 9.0 /HPF (0.0-6.0) 05/27/17 18:25 Urine Bacteria (Auto) 1+ /HPF (Negative) 05/27/17 18:25 Urine Opiates Screen Presumptive negative 05/27/17 18:25 Urine Methadone Screen Presumptive negative 05/27/17 18:25 Ur Barbiturates Screen Presumptive negative 05/27/17 18:25 Ur Phencyclidine Scrn Presumptive negative 05/27/17 18:25 Ur Amphetamines Screen Presumptive negative 05/27/17 18:25 U Benzodiazepines Scrn Presumptive negative 05/27/17 18:25 Urine Cocaine Screen Presumptive negative 05/27/17 18:25 U Marijuana (THC) Screen Presumptive negative 05/27/17 18:25 Drugs of Abuse Note Disclamer 05/27/17 18:25 Plasma/Serum Alcohol < 0.01 gm% (0-0.07) 05/27/17 15:47
--- NOTE | 2017-05-30 16:01 | Discharge Summary ---
Addendum entered and electronically signed by VIGNESH RAMÍREZ MD 05/30/17 18 :03: I saw and evaluated the patient. I agree with the findings and the plan of care as documented in the Nurse Practitioner's~note, with the following corrections and additions. 72 y/o female with multiple medicalproblems including HTN IDDM CKD HLD and GERD brought in for altered sensorium and decreased responsiveness found to be hypoglycemic, she received dextrose after which her mentation improved. And her insulin doses were therefore reduced. She was found to have acute on chronic diastolic CHF complaining of shortness of breath, she received IV diuresis after which she improved. She also had hypertensive urgency for which her Blood pressure medication optimized. She received cardiology and nephrology consultations while in hospital and clinically improved. Discharge diagnoses Acute metabolic encephalopathy Hypoglycemia in Type 2 DM Acute on chronic diastolic CHF exacerbation CKD stage 5 (chronic kidney disease) Hypertensive urgency HLD (hyperlipidemia) GERD (gastroesophageal reflux disease) Anemia of chronic disease Original Note: Providers - Providers Date of Admission: 05/27/17 18:46 Date of discharge: 05/30/17 Attending physician: VIGNESH RAMÍREZ MD 05/28/17 08:37 Consult to Physician [CONS] Routine Consulting Provider: BARRY ESPINO Reason For Exam: CKD Place consult to:: [place] Notified:: yes Phone number called:: [phone] Was contact made?: Yes If yes, spoke with:: dr. espino Time called:: 09:02 Comment:: rahat 05/28/17 08:40 Consult to Physician [CONS] Routine Consulting Provider: HAMZAH DAVISON Reason For Exam: CHF exacerbation Place consult to:: [facility] Notified:: yes Phone number called:: [phone] If yes, spoke with:: stephanie Time called:: 09:03 Comment:: rahat Primary care physician: ARIELLE GOMEZ Hospitalization Condition: Stable Pertinent studies: Chest x-ray revealed cardiomegaly with pulmonary venous hypertension, minimal left pleural effusion, minimal increased density in the perihilar regions. See full report for further details. CT brain showed evidence of mild atrophy and gliosis with no acute intracranial abnormalities. Hospital course: 72 y/o female with multiple medicalproblems including HTN IDDM CKD HLD and GERD brought in for altered sensorium and decreased responsiveness for few hours.No fever.SOB present.Patent found to be hypoglycemic in ER.BG of 32.Became more responsive after D50 W in ER but still confused. Patient was treated with calcium antihypertensives, insulin, analgesics, Lasix, potassium, and resume home medications. Discharge diagnoses Acute Metabolic encephalopathy Hypoglycemia in type 2 diabetes mellitus Acute on chronic diastolic CHF exacerbation CKD stage 5 Hypertensive urgency Hyperlipidemia GERD DVT prophylaxis Disposition: DC-30 STILL A PATIENT Time spent for discharge: 35 mins Core Measure Documentation - Palliative Care Palliative Care/ Comfort Measures: Not Applicable - Core Measures Any of the following diagnoses?: none Exam - Constitutional Vitals: Temp Pulse Resp BP Pulse Ox 97.8 F 79 18 158/63 98 05/30/17 07:47 05/30/17 12:29 05/30/17 10:00 05/30/17 12:29 05/30/17 10:00 General appearance: Present: no acute distress, well-nourished - EENT Eyes: Present: PERRL ENT: hearing intact, clear oral mucosa - Neck Neck: Present: supple, normal ROM - Respiratory Respiratory effort: normal Respiratory: bilateral: CTA - Cardiovascular Heart Sounds: Present: S1 & S2. Absent: rub, click - Extremities Extremities: pulses symmetrical, No edema Peripheral Pulses: within normal limits - Abdominal General gastrointestinal: Present: soft, non-tender Female genitourinary: Present: deferred - Rectal Rectal Exam: deferred - Integumentary Integumentary: Present: clear, warm, dry - Musculoskeletal Musculoskeletal: gait normal, strength equal bilaterally - Psychiatric Psychiatric: appropriate mood/affect, intact judgment & insight - Neurologic Neurologic: CNII-XII intact, moves all extremities - Allied Health Allied health notes reviewed: nursing Plan Activity: advance as tolerated, fall precautions Weight Bearing Status: Weight Bear as Tolerated Diet: low fat, low cholesterol, low salt, diabetic, renal Follow up with: UDAY VEAGS MD [Staff Physician] - 06/14/17 PRIMARY CARE, [Referring] - 3-5 Days Prescriptions: AtorvaSTATin [Lipitor] 40 mg PO QHS #30 tablet Latanoprost 1 drop OU QHS #1 Aspirin [Aspirin BABY CHEW TAB] 81 mg PO QDAY #30 tab.chew Calcitriol [Rocaltrol] 0.25 mcg PO QDAY #30 capsule Calcium Acetate [Phoslo] 667 mg PO TIDWM #90 capsule Carvedilol [Coreg] 12.5 mg PO BID #60 tablet Doxazosin [Cardura] 2 mg PO QDAY #30 tablet Ferrous Sulfate [Feosol 325 MG tab] 325 mg PO QDAY #30 tablet Furosemide [Lasix TAB] 40 mg PO 0600,1800 #60 tablet Glimepiride [Amaryl] 2 mg PO QDDIAB 30 Days tablet hydrALAZINE [Apresoline TAB] 100 mg PO TID #90 tab NIFEdipine XL [Procardia Xl] 90 mg PO QDAY #30 tablet NovoLIN 70/30 6 units SQ Q12HR #1 vial Pantoprazole [Protonix TAB] 40 mg PO BID #60 tablet
[2017-05-30] MEDS: LASIX IV SCH (18:10)
[2017-05-30 20:35] VITALS: BP 122/56
== END 2017-05-30 22:00 | disposition home or self-care (01) | DRG 291 ==
LOC: ED 14:56 → 3A 18:46 → 2B-ACE 20:40
PROVIDERS: ADMIT Internal Medicine; ATTEND Internal Medicine
DX: I13.0 Hypertensive heart and chronic kidney disease with heart failure and stage 1 through stage 4 chronic kidney disease, or unspecified chronic kidney disease (principal); G93.41 Metabolic encephalopathy; I50.33 Acute on chronic diastolic (congestive) heart failure; N18.5 Chronic kidney disease, stage 5; N25.81 Secondary hyperparathyroidism of renal origin; I16.0 Hypertensive urgency; E78.5 Hyperlipidemia, unspecified; E11.22 Type 2 diabetes mellitus with diabetic chronic kidney disease; D63.8 Anemia in other chronic diseases classified elsewhere; K21.9 Gastro-esophageal reflux disease without esophagitis; E11.649 Type 2 diabetes mellitus with hypoglycemia without coma; Z90.49 Acquired absence of other specified parts of digestive tract; Z79.82 Long term (current) use of aspirin; Z79.899 Other long term (current) drug therapy; Z91.14 Patient's other noncompliance with medication regimen
CPT/HCPCS: 36415; 70450; 71010; 80053; 80061; 80307; 80320; 81001; 82140; 82550; 82553; 82962; 83036; 83690; 83880; 84100; 84443; 84484; 85025; 85610; 85730; 93005; 93010; 96374; 96375; 96376; A9270-GY; G0480; J0360; J1815; J1818; J1940

== ENCOUNTER 2017-08-19 17:26 | Inpatient (IN) | payer MEDICARE, OTHER ==
[2017-08-19] MEDS ORDERED: ASPIRIN PO ONE (17:39)
[2017-08-19 18:23] LABS: Basophils % (Auto) 0.5 % (0.0-1.8); Eosinophils # (Auto) 0.4 K/mm3 (0.0-0.4); Eosinophils % (Auto) 5.7 % (0.0-4.3); Hematocrit 23.8 % (30.3-42.9); Hemoglobin 7.8 gm/dl (10.1-14.3); Lymphocytes # (Auto) 0.9 K/mm3 (1.2-5.4); Lymphocytes % (Auto) 12.3 % (13.4-35.0); Mean Corpuscular HGB Conc 33 % (30-34); Mean Corpuscular Hemoglobin 32 pg (28-32); Mean Corpuscular Volume 97 fl (79-97); Monocytes # (Auto) 0.4 K/mm3 (0.0-0.8); Monocytes % (Auto) 5.9 % (0.0-7.3); Platelet Count 229 K/mm3 (140-440); Red Blood Count 2.45 M/mm3 (3.65-5.03); Red Cell Distribution Width 16.9 % (13.2-15.2)
[2017-08-19 18:38] LABS: Calcium 8.8 mg/dL (8.4-10.2)
[2017-08-19 19:03] LABS: Chol/HDL Ratio 2.12 %
[2017-08-19] MEDS ORDERED: XOPENEX IH ONE (19:12)
[2017-08-19] MEDS ORDERED: CATAPRES PO ONE (19:12)
[2017-08-19] MEDS ORDERED: ATROVENT IH ONE (19:12)
[2017-08-19] MEDS ORDERED: NITRO-BID 2% TP ONE (19:13)
--- NOTE | 2017-08-19 19:23 | Emergency Department Report ---
HPI - General Chief Complaint: Chest Pain Time Seen by Provider: 08/19/17 19:06 - HPI HPI: Room 8 The patient is a 72-year-old female presenting with a chief complaint of shortness of breath and chest pain. The patient states the past 3-4 days she's had intermittent substernal/epigastric pain associated with nausea and vomiting. Patient denies diaphoresis. Patient admits to dyspnea on exertion which began this morning. Location: [See above] Duration: [See above] Quality: Patient would not answer Severity: Patient would not answer Modifying factors: [see above] Context: [see above] Mode of transportation: [not driving] ED Past Medical Hx - Past Medical History Hx Hypertension: Yes (admitted in CHF due to volume overload) Hx Congestive Heart Failure: Yes Hx Diabetes: Yes Hx Renal Disease: Yes (stage 5 CKD with secondary hyoerparathyroidism.) Additional medical history: cataracts - Surgical History Hx Cholecystectomy: Yes - Family History Family history: no significant - Social History Smoking Status: Never Smoker Substance Use Type: None - Medications Home Medications: Home Medications Medication Instructions Recorded Confirmed Last Taken Type Carvedilol [Coreg] 12.5 mg PO BID #60 tablet 05/30/17 07/12/17 Unknown Rx Glimepiride [Amaryl] 2 mg PO QDDIAB 30 Days tablet 05/30/17 07/12/17 Unknown Rx NovoLIN 70/30 6 units SQ Q12HR #1 vial 05/30/17 07/12/17 Unknown Rx hydrALAZINE [Apresoline TAB] 100 mg PO TID #90 tab 05/30/17 07/12/17 Unknown Rx Acetaminophen [Acetaminophen TAB] 650 mg PO Q4H PRN #30 tablet 07/17/17 Unknown Rx Aspirin [Aspirin BABY CHEW TAB] 81 mg PO QDAY #30 tab.chew 07/17/17 Unknown Rx AtorvaSTATin [Lipitor] 40 mg PO QHS #30 tablet 07/17/17 Unknown Rx Calcitriol [Rocaltrol] 0.25 mcg PO QDAY #30 capsule 07/17/17 Unknown Rx Calcium Acetate [Phoslo] 667 mg PO TIDWM #90 capsule 07/17/17 Unknown Rx Carvedilol [Coreg] 12.5 mg PO BID #60 tablet 07/17/17 Unknown Rx Ferrous Sulfate [Feosol 325 MG tab] 325 mg PO QDAY #30 tablet 07/17/17 Unknown Rx Folic Acid/Vit B Comp W-C [Renal 1 cap PO QDAY #30 capsule 07/17/17 Unknown Rx Caps] Latanoprost 0.005% 1 drops OU QHS #1 bottle 07/17/17 Unknown Rx Pantoprazole [Protonix TAB] 40 mg PO BID #14 tablet 07/17/17 Unknown Rx Torsemide [Demadex] 40 mg PO DAILY #30 tablet 07/17/17 Unknown Rx ED Review of Systems ROS: Stated complaint: DYSPNEA Other details as noted in HPI Constitutional: denies: diaphoresis Respiratory: shortness of breath, SOB with exertion Cardiovascular: chest pain Gastrointestinal: nausea, vomiting Physical Exam - Physical Exam Vital Signs: Vital Signs 08/19/17 08/19/17 08/19/17 17:36 17:54 18:01 Temperature 97.6 F Pulse Rate 87 87 Respiratory 22 26 H Rate Blood Pressure 226/112 210/105 O2 Sat by Pulse 100 100 97 Oximetry 08/19/17 08/19/17 08/19/17 18:05 18:15 18:30 Temperature Pulse Rate 87 86 Respiratory 28 H 25 H 23 Rate Blood Pressure 210/105 224/101 O2 Sat by Pulse 100 100 Oximetry Physical Exam: GENERAL: The patient is well-developed well-nourished elderly female lying on stretcher with slightly increased work of breathing. [] HEENT: Normocephalic. Atraumatic. Extraocular motions are intact. Patient has moist mucous membranes. NECK: Supple. Trachea midline CHEST/LUNGS: Diminished breath sounds. Slightly increased work of breathing HEART/CARDIOVASCULAR: Regular. There is no tachycardia. There is no gallop rub or murmur. ABDOMEN: Abdomen is soft, nontender. Patient has normal bowel sounds. There is no abdominal distention. SKIN: There is no rash. There is 1+ bilateral lower pitting edema. There is no diaphoresis. NEURO: The patient is awake, alert, and oriented. The patient is cooperative. The patient has normal speech MUSCULOSKELETAL: There is no evidence of acute injury. ED Course Vital Signs 08/19/17 08/19/17 08/19/17 17:36 17:54 18:01 Temperature 97.6 F Pulse Rate 87 87 Respiratory 22 26 H Rate Blood Pressure 226/112 210/105 O2 Sat by Pulse 100 100 97 Oximetry 08/19/17 08/19/17 08/19/17 18:05 18:15 18:30 Temperature Pulse Rate 87 86 Respiratory 28 H 25 H 23 Rate Blood Pressure 210/105 224/101 O2 Sat by Pulse 100 100 Oximetry ED Medical Decision Making - Lab Data Result diagrams: 08/19/17 18:10 08/19/17 18:10 Laboratory Tests 08/19/17 08/19/17 18:10 18:10 WBC 6.9 RBC 2.45 L Hgb 7.8 L Hct 23.8 L MCV 97 MCH 32 MCHC 33 RDW 16.9 H Plt Count 229 Lymph % (Auto) 12.3 L [place] % (Auto) 5.9 Eos % (Auto) 5.7 H Baso % (Auto) 0.5 Lymph # 0.9 L [place] # 0.4 Eos # 0.4 Baso # 0.0 Seg Neutrophils % 75.6 H Seg Neutrophils # 5.2 Sodium 138 Potassium 4.9 Chloride 97.0 L Carbon Dioxide 25 Anion Gap 21 BUN 49 H Creatinine 3.7 H Estimated GFR 12 BUN/Creatinine Ratio 13 Glucose 160 H Calcium 8.8 Troponin T 0.050 H Triglycerides 88 Cholesterol 119 LDL Cholesterol Direct 58 HDL Cholesterol 56 Cholesterol/HDL Ratio 2.12 - EKG Data -: EKG Interpreted by Me EKG shows normal: sinus rhythm Rate: normal - EKG Data When compared to previous EKG there are: no significant change Interpretation: other (no ischemic changes seen) - Radiology Data Radiology results: image reviewed (chest x-ray) interpreted by me: Chest [id number]. No pneumothorax - Differential Diagnosis ACS, CHF exacerbation, symptomatic anemia hypertensive urgency Critical care attestation.: If time is entered above; I have spent that time in minutes in the direct care of this critically ill patient, excluding procedure time. ED Disposition Clinical Impression: Shortness of breath, Hypertensive urgency, Chest pain, Renal insufficiency, Elevated troponin Disposition: 09 OP ADMIT IP TO THIS HOSP Is pt being admited?: Yes Does the pt Need Aspirin: No (renal insufficiency) Condition: Stable Instructions: Chest Pain (ED) Time of Disposition: 20:02 (Hospitalist notified (Dr Arrington))
--- NOTE | 2017-08-19 19:42 | XRay Report ---
FINAL REPORT PROCEDURE: XR CHEST 1V AP TECHNIQUE: Chest radiograph anteroposterior view. CPT 84393 HISTORY: chest pain, shortness of breath COMPARISON: 05/27/2017 FINDINGS: Heart: Mild cardiomegaly is noted.. Mediastinum/Vessels: Normal. Lungs/Pleural space: Evaluation of the lungs is limited due to suboptimal inspiration. Mild degree diffuse prominence of interstitial markings is noted. There is mild blunting of bilateral costophrenic angles.. Bony thorax: No acute osseous abnormality. Life support devices: None. IMPRESSION: Limited study due to suboptimal inspiration. Findings are most consistent with CHF with minimal bilateral pleural effusions..
[2017-08-19] MEDS ORDERED: PLAVIX PO ONE (20:02)
--- NOTE | 2017-08-19 20:13 | History and Physical Report ---
History of Present Illness Chief complaint: I hurt in my chest, and i cant breathe right History of present illness: 72 YO Female with Systolic CHF, DM, HTN, CKD, Hyperparathyroidism presents to ED for evaluation. Pt states that she has experienced pain in her chest and shortness of breath for the past 4 days with worsening symptoms over the past 2 days. Pt states that her pain is 4/10, substernal, constant, worse with deep breathing, nonradiating, not worsened with exertion, or relieved with rest. Pt acknowledges Orthopnea, PND, dypsnea on esertion, and decreased exercise tolerance. Pt denies fever, chills, palpitations,NVD, Syncope, Productive cough , BRBPR, unintentional weight loss, night sweats, trauma, unilateral leg swelling, calf pain, prolonged travel/immobility, individual/family history of DVT/PE, hemoptysis. EMS notified, and upon arrival the patient was found to have elevated blood pressure with systolic BP of 224. Pt also found to have evidence of CHF and acute renal failure as well as acute respiratory failure secondary to fluid overload. Cardiology and Nephrology consulted in ED. Past History Past Medical History: diabetes, GERD, heart failure, hypertension, hyperlipidemia, renal failure Past Surgical History: cholecystectomy Social history: . denies: smoking, alcohol abuse Family history: diabetes, hypertension Medications and Allergies Allergies Allergy/AdvReac Type Severity Reaction Status Date / Time No Known Allergies Allergy Unverified 07/14/14 15:02 Home Medications Medication Instructions Recorded Confirmed Last Taken Type Carvedilol [Coreg] 12.5 mg PO BID #60 tablet 05/30/17 07/12/17 Unknown Rx Glimepiride [Amaryl] 2 mg PO QDDIAB 30 Days tablet 05/30/17 07/12/17 Unknown Rx NovoLIN 70/30 6 units SQ Q12HR #1 vial 05/30/17 07/12/17 Unknown Rx hydrALAZINE [Apresoline TAB] 100 mg PO TID #90 tab 05/30/17 07/12/17 Unknown Rx Acetaminophen [Acetaminophen TAB] 650 mg PO Q4H PRN #30 tablet 07/17/17 Unknown Rx Aspirin [Aspirin BABY CHEW TAB] 81 mg PO QDAY #30 tab.chew 07/17/17 Unknown Rx AtorvaSTATin [Lipitor] 40 mg PO QHS #30 tablet 07/17/17 Unknown Rx Calcitriol [Rocaltrol] 0.25 mcg PO QDAY #30 capsule 07/17/17 Unknown Rx Calcium Acetate [Phoslo] 667 mg PO TIDWM #90 capsule 07/17/17 Unknown Rx Carvedilol [Coreg] 12.5 mg PO BID #60 tablet 07/17/17 Unknown Rx Ferrous Sulfate [Feosol 325 MG tab] 325 mg PO QDAY #30 tablet 07/17/17 Unknown Rx Folic Acid/Vit B Comp W-C [Renal 1 cap PO QDAY #30 capsule 07/17/17 Unknown Rx Caps] Latanoprost 0.005% 1 drops OU QHS #1 bottle 07/17/17 Unknown Rx Pantoprazole [Protonix TAB] 40 mg PO BID #14 tablet 07/17/17 Unknown Rx Torsemide [Demadex] 40 mg PO DAILY #30 tablet 07/17/17 Unknown Rx Review of Systems Constitutional: no weight loss, no weight gain, no fever, no chills Ears, nose, mouth and throat: no ear pain, no ear discharge, no tinnitis, no decreased hearing, no nose pain, no nasal congestion Breasts: no change in shape, no swelling, no mass Cardiovascular: chest pain, orthopnea, shortness of breath, paroxysmal nocturnal dyspnea, high blood pressure Respiratory: no cough, no cough with sputum, no excessive sputum Gastrointestinal: no nausea, no vomiting, no diarrhea, no constipation, no change in bowel habits Genitourinary Female: no pelvic pain, no flank pain, no menorrhagia, no dysuria , no urinary frequency, no urgency, no stress incontinence Rectal: no pain, no incontinence, no bleeding Musculoskeletal: no neck stiffness, no neck pain, no shooting arm pain, no arm numbness/tingling, no low back pain Integumentary: no rash, no pruritis, no redness, no sores, no wounds, no jaundice, no boils Neurological: no transient paralysis, no paralysis, no weakness, no parathesias , no numbness, no tingling, no seizures, no syncope Psychiatric: no memory loss, no change in sleep habits, no sleep disturbances, no insomnia, no hypersomnia, no change in appetite, no change in libido, no suicidal ideation Endocrine: no cold intolerance, no heat intolerance, no polyphagia, no excessive thirst, no polydipsia, no polyuria, no nocturia Hematologic/Lymphatic: no easy bruising, no lymphadenopathy, no lymphedema Allergic/Immunologic: no urticaria, no allergic rhinitis, no wheezing Exam - Constitutional Vitals: Temp Pulse Resp BP Pulse Ox 97.6 F 85 18 225/104 99 08/19/17 17:36 08/19/17 19:42 08/19/17 19:30 08/19/17 19:42 08/19/17 19:00 General appearance: Present: mild distress - EENT Eyes: Present: PERRL ENT: hearing intact, clear oral mucosa - Neck Neck: Present: supple, normal ROM - Respiratory Respiratory effort: normal Respiratory: bilateral: CTA - Cardiovascular Heart Sounds: Present: S1 & S2. Absent: rub, click - Extremities Extremities: pulses symmetrical, No edema Peripheral Pulses: within normal limits - Abdominal General gastrointestinal: Present: soft, non-tender, non-distended, normal bowel sounds Female genitourinary: Present: normal - Integumentary Integumentary: Present: clear, warm, dry - Musculoskeletal Musculoskeletal: gait normal, strength equal bilaterally - Psychiatric Psychiatric: appropriate mood/affect, intact judgment & insight - Neurologic Neurologic: CNII-XII intact, moves all extremities Results - Labs CBC & Chem 7: 08/19/17 18:10 08/19/17 18:10 Labs: Abnormal lab results 08/19/17 08/19/17 Range/Units 18:10 18:10 RBC 2.45 L (3.65-5.03) M/mm3 Hgb 7.8 L (10.1-14.3) gm/dl Hct 23.8 L (30.3-42.9) % RDW 16.9 H (13.2-15.2) % Lymph % (Auto) 12.3 L (13.4-35.0) % Eos % (Auto) 5.7 H (0.0-4.3) % Lymph # 0.9 L (1.2-5.4) K/mm3 Seg Neutrophils % 75.6 H (40.0-70.0) % Chloride 97.0 L (98-107) mmol/L BUN 49 H (7-17) mg/dL Creatinine 3.7 H (0.7-1.2) mg/dL Glucose 160 H (65-100) mg/dL Troponin T 0.050 H (0.00-0.029) ng/mL Assessment and Plan - Patient Problems (1) CHF (congestive heart failure) Current Visit: Yes Status: Acute Qualifiers: Heart failure type: systolic Heart failure chronicity: acute on chronic Qualified Code(s): I50.23 - Acute on chronic systolic (congestive) heart failure Plan to address problem: Admit to telemetry, cardiology consulted, Strict I/O, daily weight, thyroid panel, monitor uop q shift, diuresis, supplemental oxygen, low sodium diet, BNP , chest x ray, thyroid panel (2) Hypertensive emergency Current Visit: Yes Status: Acute Plan to address problem: Monitor bp q shift,resume prehospital antihypertensive therpay, IV hydralazine prn, goal systolic overnight betweeen 165-180. (3) Anemia Current Visit: Yes Status: Acute Qualifiers: Chronic kidney disease stage: stage 5, not on chronic dialysis Plan to address problem: chronic, no active bleeding. Secondary to CKD. No transfusion at this time. (4) Diabetes Current Visit: Yes Status: Acute Plan to address problem: Consistent carbohydrate diet, insulin, accu check (5) Acute renal failure Current Visit: No Status: Acute Qualifiers: Acute renal failure type: with acute tubular necrosis Qualified Code(s): N17.0 - Acute kidney failure with tubular necrosis Plan to address problem: Nephrology consulted, monitor uop q shift, urine electrolytes. (6) Respiratory failure Current Visit: Yes Status: Acute Qualifiers: Respiratory failure complication: hypoxia Plan to address problem: D dimer, Chest x ray, NIPPV as clinically indicated, ABG, supplemental oxygen, nebulizer therapy. (7) DVT prophylaxis Current Visit: Yes Status: Acute
[2017-08-19] MEDS ORDERED: TYLENOL PO PRN ×2 (20:14→20:18)
[2017-08-19] MEDS ORDERED: SODIUM CHLORIDE FLUSH SYRINGE 10 ML IV PRN (20:18)
[2017-08-19] MEDS ORDERED: ZOFRAN IV PRN (20:18)
[2017-08-19 21:21] LABS: Free T4 (Free Thyroxine) 1.44 ng/dL (0.76-1.46)
[2017-08-19] MEDS ORDERED: PLAVIX ONE (21:39)
[2017-08-19] MEDS ORDERED: INSULIN REGULAR SQ SCH (22:00)
[2017-08-19] MEDS ORDERED: INSULIN ISOPHANE SQ SCH (22:00)
[2017-08-19] MEDS: PROTONIX PO SCH (23:11)
[2017-08-19] MEDS: COREG PO SCH (23:12)
[2017-08-19] MEDS: LATANOPROST 0.005% OU SCH (23:12)
[2017-08-19] MEDS: SODIUM CHLORIDE FLUSH SYRINGE 10 ML IV SCH (23:13)
[2017-08-19] MEDS: APRESOLINE IV PRN (23:13)
[2017-08-20] MEDS ORDERED: LASIX IV SCH (06:00)
[2017-08-20] MEDS: APRESOLINE PO SCH ×3 (08:50→22:57)
[2017-08-20] MEDS: PHOSLO PO SCH ×3 (08:51→17:41)
--- NOTE | 2017-08-20 09:46 | Consultation ---
History of Present Illness - Reason for Consult Consult date: 08/20/17 chronic renal failure, accelerated hypertension - History of Present Illness The patient is a 72 YO Female with medical history significant for Systolic CHF, Type 2 DM, HTN, CKD stage 5, Hyperparathyroidism, Anemia, Legally blind and Medical non-compliance who is well known to our service presented to the ED with chest pain and shortness of breath for the past 4 days. Patient is a poor historian. She has ahd the CP for the past few days. The pain was sharp , 4/10, substernal, constant and nonradiating. Patient also reports having SOB at rest, Orthopnea, PND, LEWIS and bilateral leg swelling. Pt denies fever, chills, N, V, D, dizziness, Syncope, cough or hemoptysis. Her initial BP was 226/122. Patient was diagnosed with acute CHF, acute respiratory failure secondary to fluid overload and decreased renal function. Patient had several similar presentations in the past and both patient was her son refused for hemodialysis. Past History Past Medical History: diabetes, GERD, heart failure, hypertension, hyperlipidemia, renal failure Past Surgical History: cholecystectomy Social history: . denies: smoking, alcohol abuse Family history: diabetes, hypertension Medications and Allergies Allergies Allergy/AdvReac Type Severity Reaction Status Date / Time No Known Allergies Allergy Unverified 07/14/14 15:02 Home Medications Medication Instructions Recorded Confirmed Last Taken Type Carvedilol [Coreg] 12.5 mg PO BID #60 tablet 05/30/17 08/20/17 2 Days Ago Rx ~08/18/17 Glimepiride [Amaryl] 2 mg PO QDDIAB 30 Days tablet 05/30/17 08/20/17 2 Weeks Ago Rx ~08/06/17 NovoLIN 70/30 6 units SQ Q12HR #1 vial 05/30/17 08/20/17 2 Days Ago Rx ~08/18/17 hydrALAZINE [Apresoline TAB] 100 mg PO TID #90 tab 05/30/17 08/20/17 2 Days Ago Rx ~08/18/17 Acetaminophen [Acetaminophen TAB] 650 mg PO Q4H PRN #30 tablet 07/17/17 3 Days Ago Rx ~08/17/17 Aspirin [Aspirin BABY CHEW TAB] 81 mg PO QDAY #30 tab.chew 07/17/17 08/20/17 1 Day Ago Rx ~08/19/17 AtorvaSTATin [Lipitor] 40 mg PO QHS #30 tablet 07/17/17 08/20/17 2 Days Ago Rx ~08/18/17 Calcitriol [Rocaltrol] 0.25 mcg PO QDAY #30 capsule 07/17/17 08/20/17 2 Days Ago Rx ~08/18/17 Calcium Acetate [Phoslo] 667 mg PO TIDWM #90 capsule 07/17/17 08/20/17 2 Days Ago Rx ~08/18/17 Carvedilol [Coreg] 12.5 mg PO BID #60 tablet 07/17/17 08/20/17 2 Days Ago Rx ~08/18/17 Ferrous Sulfate [Feosol 325 MG tab] 325 mg PO QDAY #30 tablet 07/17/17 08/20/17 2 Days Ago Rx ~08/18/17 Folic Acid/Vit B Comp W-C [Renal 1 cap PO QDAY #30 capsule 07/17/17 08/20/17 2 Days Ago Rx Caps] ~08/18/17 Latanoprost 0.005% 1 drops OU QHS #1 bottle 07/17/17 08/20/17 1 Day Ago Rx ~08/19/17 Pantoprazole [Protonix TAB] 40 mg PO BID #14 tablet 07/17/17 08/20/17 2 Days Ago Rx ~08/18/17 Torsemide [Demadex] 40 mg PO DAILY #30 tablet 07/17/17 08/20/17 2 Days Ago Rx ~08/18/17 Active Meds: Active Medications Acetaminophen (Tylenol) 650 mg PO Q4H PRN PRN Reason: Pain MILD(1-3)/Fever >100.5/CANALES Albuterol (Proventil) 2.5 mg IH Q4HRT PRN PRN Reason: Shortness Of Breath Aspirin (Baby Aspirin) 81 mg PO QDAY [facility] Atorvastatin Calcium (Lipitor) 40 mg PO QHS [facility] Last Admin: 08/19/17 23:11 Dose: 40 mg Calcitriol (Rocaltrol) 0.25 mcg PO QDAY [facility] Calcium Acetate (Phoslo) 667 mg PO TIDWM [facility] Last Admin: 08/20/17 08:51 Dose: 667 mg Carvedilol (Coreg) 12.5 mg PO BID [facility] Last Admin: 08/19/17 23:12 Dose: 12.5 mg Ferrous Sulfate (Feosol) 325 mg PO QDAY [facility] Furosemide (Lasix) 20 mg IV BID@0600,1800 [facility] Last Admin: 08/20/17 05:54 Dose: 20 mg Hydralazine HCl (Apresoline) 100 mg PO TID [facility] Last Admin: 08/20/17 08:50 Dose: 100 mg Hydralazine HCl (Apresoline) 20 mg IV Q4HR PRN PRN Reason: Hypertension Last Admin: 08/19/17 23:13 Dose: 20 mg Insulin Human Isoph/Insulin Regular (Humulin 70/30) 6 unit SUB-Q BIDDIAB [facility] Last Admin: 08/20/17 08:55 Dose: Not Given Latanoprost (Latanoprost 0.005%) 1 drops OU QHS [facility] Last Admin: 08/19/17 23:12 Dose: 1 drops Multivit/Ca Carb/B Cmplx/FA/Prenat (Renal Caps) 1 cap PO QDAY [facility] Ondansetron HCl (Zofran) 4 mg IV Q8H PRN PRN Reason: Nausea And Vomiting Pantoprazole Sodium (Protonix) 40 mg PO BID [facility] Last Admin: 08/19/17 23:11 Dose: 40 mg Sodium Chloride (Sodium Chloride Flush Syringe 10 Ml) 10 ml IV BID [facility] Last Admin: 08/19/17 23:13 Dose: 10 ml Sodium Chloride (Sodium Chloride Flush Syringe 10 Ml) 10 ml IV PRN PRN PRN Reason: LINE FLUSH Review of Systems Constitutional: no weight loss, no weight gain, no fever, no chills, no anorexia Ears, nose, mouth and throat: no epistaxis Breasts: deferred Cardiovascular: chest pain, orthopnea, edema, shortness of breath, dyspnea on exertion, paroxysmal nocturnal dyspnea, high blood pressure, leg edema, decreased exercise tolerance, no palpitations, no syncope, no lightheadedness Respiratory: shortness of breath, dyspnea on exertion, no cough, no hemoptysis, no home oxygen Gastrointestinal: no abdominal pain, no nausea, no vomiting, no diarrhea, no melena Genitourinary Female: no hematuria Rectal: no bleeding Integumentary: no rash, no wounds, no jaundice Neurological: loss of vision, no seizures, no syncope Exam - Vital Signs Vital signs: Vital Signs Temp Pulse Resp BP Pulse Ox 97.6 F 87 22 226/112 100 08/19/17 17:36 08/19/17 17:36 08/19/17 17:36 08/19/17 17:36 08/19/17 17:36 - General Appearance General appearance: well-developed, appears stated age, other (no distress) EENT: ATNC, PERRL, hearing intact Neck: Present: neck supple, trachea midline Respiratory: Rales Heart: regular, S1S2, no murmurs Gastrointestinal: Present: normoactive bowel sounds. Absent: tenderness Integumentary: chronic venous stasis Neurologic: no asterixis, other (bilateral blindness) Musculoskeletal: Present: other (1+ edema of both LEs noted) Results - Lab Results 08/19/17 18:10 08/19/17 18:10 Most recent lab results Calcium 8.8 mg/dL (8.4-10.2) 08/19/17 18:10 Assessment and Plan 1. CKD stage 5: Dsicussed with patient in length regarding the need for hemodialysis, benefits and risks. She doesn't want to go on hemodialysis. She understood the risks. 2. Uncontrolled Hypertension: Continue home meds. Monitor BP. 3. CHF exacerbation: Increase IV Lasix. 4. Anemia: Epogen when the BP is better. 5. Secondary Hyperparathyroidism: Continue Calcitriol.
[2017-08-20] MEDS ORDERED: DEMADEX PO SCH (10:00)
[2017-08-20] MEDS: ROCALTROL PO SCH (10:38)
[2017-08-20] MEDS: BABY ASPIRIN PO SCH (10:38)
[2017-08-20] MEDS: PROTONIX PO SCH ×2 (10:38→22:55)
[2017-08-20] MEDS: FEOSOL PO SCH (10:38)
[2017-08-20] MEDS: COREG PO SCH ×2 (10:38→22:55)
[2017-08-20] MEDS: Renal Caps PO SCH (10:38)
--- NOTE | 2017-08-20 11:41 | Progress Note ---
Assessment and Plan Assessment and plan: Acute combined systolic and diastolic heart failure decompensation Cardiology consultation pending. Cont. Strict I/O, daily weight and monitor uop q shift. Cont. diuresis, supplemental oxygen, low sodium diet. Follow-up serial chest x-ray Echocardiogram 03/2017 revealed moderate to severe concentric left ventricular hypertrophy with EF 45-50%. The left ventricular systolic function was mildly decreased. Moderate to severe mitral regurgitation and evidence of moderate pulmonary hypertension. Normal stress thallium test 10/2016 at [facility]. Elevated d-dimer Consider VQ scan. Accelerated hypertension Monitor bp q shift,resume prehospital antihypertensive therpay, IV hydralazine prn, goal systolic overnight betweeen 165-180. Anemia of CKD chronic, no active bleeding. Secondary to CKD. No transfusion at this time. Diabetes Consistent carbohydrate diet, insulin, accu check Acute renal failure on CKD Nephrology consulted, monitor uop q shift, urine electrolytes. Patient was previously recommended for hemodialysis but declined. Respiratory failure D dimer, Chest x ray, NIPPV as clinically indicated, ABG, supplemental oxygen, nebulizer therapy. DVT prophylaxis History Interval history: No new issues overnight. No complaints of chest pain or shortness of breath. Hospitalist Physical - Constitutional Vitals: Temp Pulse Resp BP Pulse Ox 98.3 F 64 18 167/58 97 08/20/17 07:20 08/20/17 10:38 08/20/17 07:20 08/20/17 10:38 08/20/17 07:20 General appearance: Present: no acute distress - EENT Eyes: Present: PERRL, EOM intact ENT: hearing intact, clear oral mucosa, dentition normal - Neck Neck: Present: supple, normal ROM - Respiratory Respiratory effort: normal Respiratory: bilateral: CTA - Cardiovascular Rhythm: regular Heart Sounds: Present: S1 & S2. Absent: gallop, rub - Extremities Extremities: no ischemia, No edema, Full ROM - Abdominal General gastrointestinal: soft, non-tender, non-distended, normal bowel sounds - Integumentary Integumentary: Present: clear, warm, dry - Neurologic Neurologic: CNII-XII intact, moves all extremities Results - Labs CBC & Chem 7: 08/19/17 18:10 08/19/17 18:10 Labs: Laboratory Last Values WBC 6.9 K/mm3 (4.5-11.0) 08/19/17 18:10 RBC 2.45 M/mm3 (3.65-5.03) L 08/19/17 18:10 Hgb 7.8 gm/dl (10.1-14.3) L 08/19/17 18:10 Hct 23.8 % (30.3-42.9) L 08/19/17 18:10 MCV 97 fl (79-97) 08/19/17 18:10 MCH 32 pg (28-32) 08/19/17 18:10 MCHC 33 % (30-34) 08/19/17 18:10 RDW 16.9 % (13.2-15.2) H 08/19/17 18:10 Plt Count 229 K/mm3 (140-440) 08/19/17 18:10 Lymph % (Auto) 12.3 % (13.4-35.0) L 08/19/17 18:10 [place] % (Auto) 5.9 % (0.0-7.3) 08/19/17 18:10 Eos % (Auto) 5.7 % (0.0-4.3) H 08/19/17 18:10 Baso % (Auto) 0.5 % (0.0-1.8) 08/19/17 18:10 Lymph # 0.9 K/mm3 (1.2-5.4) L 08/19/17 18:10 [place] # 0.4 K/mm3 (0.0-0.8) 08/19/17 18:10 Eos # 0.4 K/mm3 (0.0-0.4) 08/19/17 18:10 Baso # 0.0 K/mm3 (0.0-0.1) 08/19/17 18:10 Seg Neutrophils % 75.6 % (40.0-70.0) H 08/19/17 18:10 Seg Neutrophils # 5.2 K/mm3 (1.8-7.7) 08/19/17 18:10 D-Dimer 1867.54 ng/mlDDU (0-234) H 08/19/17 20:34 Sodium 138 mmol/L (137-145) 08/19/17 18:10 Potassium 4.9 mmol/L (3.6-5.0) 08/19/17 18:10 Chloride 97.0 mmol/L (98-107) L 08/19/17 18:10 Carbon Dioxide 25 mmol/L (22-30) 08/19/17 18:10 Anion Gap 21 mmol/L 08/19/17 18:10 BUN 49 mg/dL (7-17) H 08/19/17 18:10 Creatinine 3.7 mg/dL (0.7-1.2) H 08/19/17 18:10 Estimated GFR 12 ml/min 08/19/17 18:10 BUN/Creatinine Ratio 13 % 08/19/17 18:10 Glucose 160 mg/dL (65-100) H 08/19/17 18:10 POC Glucose 125 (70-105) H 08/20/17 06:48 Calcium 8.8 mg/dL (8.4-10.2) 08/19/17 18:10 Troponin T 0.051 ng/mL (0.00-0.029) H 08/19/17 23:14 NT-Pro-B Natriuret Pep > 59582 pg/mL (0-900) H 08/19/17 20:34 Triglycerides 88 mg/dL (2-149) 08/19/17 18:10 Cholesterol 119 mg/dL (50-199) 08/19/17 18:10 LDL Cholesterol Direct 58 mg/dL (50-130) 08/19/17 18:10 HDL Cholesterol 56 mg/dL (40-59) 08/19/17 18:10 Cholesterol/HDL Ratio 2.12 % 08/19/17 18:10 TSH 3.750 mlU/mL (0.270-4.200) 08/19/17 20:49 Free T4 1.44 ng/dL (0.76-1.46) 08/19/17 20:49
--- NOTE | 2017-08-20 16:08 | Consultation ---
History of Present Illness Consult date: 08/20/17 Consult reason: congestive heart failure History of present illness: This is a 72yr old woman admitted with recurrent fluid overload, which has been determined multifactorial. She has well preserved left ventricular systolic function on her echocardiogram. Fluid overload and heart failure with preserved ejection fraction is likely due to a combination of chronic anemia, end-stage renal disease and chronic severe uncontrolled hypertension, and a moderate to severe mitral regurgitation. As reported in previous notes, the patient has refused dialysis management. 12 lead ECG is a sinus rhythm, no acute ischemic changes. Past History Past Medical History: diabetes, GERD, heart failure, hypertension, hyperlipidemia, renal failure Past Surgical History: cholecystectomy Social history: . denies: smoking, alcohol abuse Family history: diabetes, hypertension Medications and Allergies Allergies Allergy/AdvReac Type Severity Reaction Status Date / Time No Known Allergies Allergy Unverified 07/14/14 15:02 Home Medications Medication Instructions Recorded Confirmed Last Taken Type Carvedilol [Coreg] 12.5 mg PO BID #60 tablet 05/30/17 08/20/17 2 Days Ago Rx ~08/18/17 Glimepiride [Amaryl] 2 mg PO QDDIAB 30 Days tablet 05/30/17 08/20/17 2 Weeks Ago Rx ~08/06/17 NovoLIN 70/30 6 units SQ Q12HR #1 vial 05/30/17 08/20/17 2 Days Ago Rx ~08/18/17 hydrALAZINE [Apresoline TAB] 100 mg PO TID #90 tab 05/30/17 08/20/17 2 Days Ago Rx ~08/18/17 Acetaminophen [Acetaminophen TAB] 650 mg PO Q4H PRN #30 tablet 07/17/17 3 Days Ago Rx ~08/17/17 Aspirin [Aspirin BABY CHEW TAB] 81 mg PO QDAY #30 tab.chew 07/17/17 08/20/17 1 Day Ago Rx ~08/19/17 AtorvaSTATin [Lipitor] 40 mg PO QHS #30 tablet 07/17/17 08/20/17 2 Days Ago Rx ~08/18/17 Calcitriol [Rocaltrol] 0.25 mcg PO QDAY #30 capsule 07/17/17 08/20/17 2 Days Ago Rx ~08/18/17 Calcium Acetate [Phoslo] 667 mg PO TIDWM #90 capsule 07/17/17 08/20/17 2 Days Ago Rx ~08/18/17 Carvedilol [Coreg] 12.5 mg PO BID #60 tablet 07/17/17 08/20/17 2 Days Ago Rx ~08/18/17 Ferrous Sulfate [Feosol 325 MG tab] 325 mg PO QDAY #30 tablet 07/17/17 08/20/17 2 Days Ago Rx ~08/18/17 Folic Acid/Vit B Comp W-C [Renal 1 cap PO QDAY #30 capsule 07/17/17 08/20/17 2 Days Ago Rx Caps] ~08/18/17 Latanoprost 0.005% 1 drops OU QHS #1 bottle 07/17/17 08/20/17 1 Day Ago Rx ~08/19/17 Pantoprazole [Protonix TAB] 40 mg PO BID #14 tablet 07/17/17 08/20/17 2 Days Ago Rx ~08/18/17 Torsemide [Demadex] 40 mg PO DAILY #30 tablet 07/17/17 08/20/17 2 Days Ago Rx ~08/18/17 Active Meds: Active Medications Acetaminophen (Tylenol) 650 mg PO Q4H PRN PRN Reason: Pain MILD(1-3)/Fever >100.5/CANALES Albuterol (Proventil) 2.5 mg IH Q4HRT PRN PRN Reason: Shortness Of Breath Aspirin (Baby Aspirin) 81 mg PO QDAY [facility] Last Admin: 08/20/17 10:38 Dose: 81 mg Atorvastatin Calcium (Lipitor) 40 mg PO QHS [facility] Last Admin: 08/19/17 23:11 Dose: 40 mg Calcitriol (Rocaltrol) 0.25 mcg PO QDAY [facility] Last Admin: 08/20/17 10:38 Dose: 0.25 mcg Calcium Acetate (Phoslo) 667 mg PO TIDWM [facility] Last Admin: 08/20/17 12:27 Dose: 667 mg Carvedilol (Coreg) 12.5 mg PO BID [facility] Last Admin: 08/20/17 10:38 Dose: 12.5 mg Ferrous Sulfate (Feosol) 325 mg PO QDAY [facility] Last Admin: 08/20/17 10:38 Dose: 325 mg Furosemide (Lasix) 60 mg IV BID@0600,1800 [facility] Hydralazine HCl (Apresoline) 100 mg PO TID [facility] Last Admin: 08/20/17 13:26 Dose: 100 mg Hydralazine HCl (Apresoline) 20 mg IV Q4HR PRN PRN Reason: Hypertension Last Admin: 08/19/17 23:13 Dose: 20 mg Insulin Human Isoph/Insulin Regular (Humulin 70/30) 6 unit SUB-Q BIDDIAB [facility] Last Admin: 08/20/17 08:55 Dose: Not Given Latanoprost (Latanoprost 0.005%) 1 drops OU QHS [facility] Last Admin: 08/19/17 23:12 Dose: 1 drops Multivit/Ca Carb/B Cmplx/FA/Prenat (Renal Caps) 1 cap PO QDAY [facility] Last Admin: 08/20/17 10:38 Dose: 1 cap Ondansetron HCl (Zofran) 4 mg IV Q8H PRN PRN Reason: Nausea And Vomiting Pantoprazole Sodium (Protonix) 40 mg PO BID [facility] Last Admin: 08/20/17 10:38 Dose: 40 mg Sodium Chloride (Sodium Chloride Flush Syringe 10 Ml) 10 ml IV BID [facility] Last Admin: 08/19/17 23:13 Dose: 10 ml Sodium Chloride (Sodium Chloride Flush Syringe 10 Ml) 10 ml IV PRN PRN PRN Reason: LINE FLUSH Physical Examination Vital Signs Temp Pulse Resp BP Pulse Ox 97.6 F 87 22 226/112 100 08/19/17 17:36 08/19/17 17:36 08/19/17 17:36 08/19/17 17:36 08/19/17 17:36 General appearance: no acute distress HEENT: Positive: PERRL Cardiac: Positive: Reg Rate and Rhythm Lungs: Positive: Decreased Breath Sounds Neuro: Positive: Grossly Intact Extremities: Present: +2 Edema Results 08/19/17 18:10 08/19/17 18:10 Lipids 08/19/17 Range/Units 18:10 Triglycerides 88 (2-149) mg/dL Cholesterol 119 (50-199) mg/dL HDL Cholesterol 56 (40-59) mg/dL Cholesterol/HDL Ratio 2.12 % CBC 08/19/17 Range/Units 18:10 WBC 6.9 (4.5-11.0) K/mm3 RBC 2.45 L (3.65-5.03) M/mm3 Hgb 7.8 L (10.1-14.3) gm/dl Hct 23.8 L (30.3-42.9) % Plt Count 229 (140-440) K/mm3 Lymph # 0.9 L (1.2-5.4) K/mm3 [place] # 0.4 (0.0-0.8) K/mm3 Eos # 0.4 (0.0-0.4) K/mm3 Baso # 0.0 (0.0-0.1) K/mm3 Comprehensive Metabolic Panel 08/19/17 Range/Units 18:10 Sodium 138 (137-145) mmol/L Potassium 4.9 (3.6-5.0) mmol/L Chloride 97.0 L (98-107) mmol/L Carbon Dioxide 25 (22-30) mmol/L BUN 49 H (7-17) mg/dL Creatinine 3.7 H (0.7-1.2) mg/dL Glucose 160 H (65-100) mg/dL Calcium 8.8 (8.4-10.2) mg/dL Assessment and Plan Recurrent volume overload, multifactorial CHF with preserved ejection fraction Chronic anemia Severe uncontrolled hypertension Chronic kidney disease patient has declined HD in the past EF 45-50% on echocardiogram 03/2017. Normal stress thallium test 10/2016 at [facility].
[2017-08-20] MEDS: LASIX IV SCH (17:42)
[2017-08-20] MEDS: CARDURA PO SCH (19:00)
[2017-08-20] MEDS: APRESOLINE IV PRN (22:55)
[2017-08-20] MEDS: LATANOPROST 0.005% OU SCH (23:01)
[2017-08-20] MEDS: SODIUM CHLORIDE FLUSH SYRINGE 10 ML IV SCH ×2 (23:01→23:03)
[2017-08-21] MEDS: LASIX IV SCH ×2 (05:47→17:56)
[2017-08-21 06:26] LABS: Eosinophils # (Auto) 0.5 K/mm3 (0.0-0.4); Eosinophils % (Auto) 9.6 % (0.0-4.3); Hemoglobin 6.2 gm/dl (10.1-14.3); Lymphocytes # (Auto) 0.8 K/mm3 (1.2-5.4); Lymphocytes % (Auto) 16.5 % (13.4-35.0); Mean Corpuscular HGB Conc 32 % (30-34); Mean Corpuscular Hemoglobin 32 pg (28-32); Mean Corpuscular Volume 100 fl (79-97); Monocytes # (Auto) 0.5 K/mm3 (0.0-0.8); Monocytes % (Auto) 10.5 % (0.0-7.3); Platelet Count 155 K/mm3 (140-440); Red Blood Count 1.95 M/mm3 (3.65-5.03); Red Cell Distribution Width 16.8 % (13.2-15.2)
[2017-08-21 06:31] LABS: Hematocrit 19.4 % (30.3-42.9)
[2017-08-21 06:44] LABS: Calcium 7.9 mg/dL (8.4-10.2)
[2017-08-21] MEDS ORDERED: NACL 0.9% 500 ML 500 ML IV NR (07:21)
--- NOTE | 2017-08-21 08:15 | Progress Note ---
Assessment and Plan 1. CKD stage 5: Patient still refusing to go on hemodialysis. Follow renal function. 2. Uncontrolled Hypertension: Continue home meds. Monitor BP. 3. CHF exacerbation: Continue IV Lasix. 4. Anemia: 2 units of PRBC ordered. Epogen. 5. Secondary Hyperparathyroidism: Continue Calcitriol. Subjective Date of service: 08/21/17 Interval history: Patient is doing ok. Objective - Vital Signs Vital signs: Vital Signs - 12hr 08/20/17 08/20/17 08/21/17 22:00 23:58 00:38 Temperature 98.2 F Pulse Rate 65 Respiratory 18 24 Rate Blood Pressure 174/73 Blood Pressure [Right] O2 Sat by Pulse 100 99 Oximetry 08/21/17 08/21/17 08/21/17 02:00 04:14 04:15 Temperature 98.6 F 98.6 F Pulse Rate 66 65 64 Respiratory 22 22 Rate Blood Pressure Blood Pressure 133/49 [Right] O2 Sat by Pulse 100 99 Oximetry - General Appearance General appearance: well-developed, well-nourished, appears stated age, other ( no distress) EENT: ATNC, PERRL, hearing intact Neck: supple Respiratory: Present: Rales Cardiology: regular, S1S2 Gastrointestinal: normoactive bowel sounds, no tenderness Integumentary: chronic venous stasis Neurologic: no asterixis, alert and oriented x3, other (bilateral blindness) Musculoskeletal: other (trace pedal edema noted) - Lab 08/21/17 05:55 08/21/17 05:55 Most recent lab results Calcium 7.9 mg/dL (8.4-10.2) L 08/21/17 05:55 Phosphorus 5.20 mg/dL (2.5-4.5) H 08/21/17 05:55 Magnesium 2.30 mg/dL (1.7-2.3) 08/21/17 05:55
[2017-08-21] MEDS: PROCARDIA XL PO SCH (09:57)
[2017-08-21] MEDS: ROCALTROL PO SCH (09:57)
[2017-08-21] MEDS: FEOSOL PO SCH (09:57)
[2017-08-21] MEDS: Renal Caps PO SCH (09:57)
[2017-08-21] MEDS: PHOSLO PO SCH ×3 (09:59→17:56)
[2017-08-21] MEDS: PROTONIX PO SCH ×2 (10:00→21:21)
[2017-08-21] MEDS: COREG PO SCH ×2 (10:00→21:22)
[2017-08-21] MEDS: BABY ASPIRIN PO SCH (10:00)
[2017-08-21] MEDS: CARDURA PO SCH (10:00)
[2017-08-21] MEDS: APRESOLINE PO SCH ×3 (10:01→21:21)
--- NOTE | 2017-08-21 11:06 | Progress Note ---
Assessment and Plan Recurrent volume overload, multifactorial CHF with preserved ejection fraction Chronic anemia Severe uncontrolled hypertension managed with Cardura and Procardia XL Chronic kidney disease patient has declined HD in the past EF 45-50% on echocardiogram 03/2017. Normal stress thallium test 10/2016 at [facility]. Continue medical therapy for heart failure with a preserved EF. Subjective Date of service: 08/21/17 Interval history: Patient is resting in bed comfortably. No distress noted. Labs notable for severe anemia, HCT 19.4 today. Objective Vital Signs Temp Pulse Resp BP BP Pulse Ox 08/21/17 10:00 64 166/56 08/21/17 09:39 98.6 F 64 20 166/56 100 08/21/17 04:15 98.6 F 64 22 133/49 99 08/21/17 04:14 98.6 F 65 22 100 08/21/17 02:00 66 08/21/17 00:38 99 08/20/17 23:58 98.2 F 65 24 174/73 100 08/20/17 22:00 18 08/20/17 20:00 98.4 F 67 22 180/63 99 08/20/17 19:00 66 172/62 08/20/17 15:39 98.2 F 16 179/69 08/20/17 13:26 97.9 F 61 20 169/60 100 08/20/17 11:47 97.9 F 67 18 176/71 100 - Physical Examination General: No Apparent Distress HEENT: Positive: PERRL Neck: Positive: trachea midline Cardiac: Positive: Reg Rate and Rhythm Neuro: Positive: Grossly Intact Extremities: Present: +2 Edema - Labs and Meds CBC 08/21/17 Range/Units 05:55 WBC 4.8 (4.5-11.0) K/mm3 RBC 1.95 L (3.65-5.03) M/mm3 Hgb 6.2 L (10.1-14.3) gm/dl Hct 19.4 L* (30.3-42.9) % Plt Count 155 (140-440) K/mm3 Lymph # 0.8 L (1.2-5.4) K/mm3 [place] # 0.5 (0.0-0.8) K/mm3 Eos # 0.5 H (0.0-0.4) K/mm3 Baso # 0.0 (0.0-0.1) K/mm3 Comprehensive Metabolic Panel 08/21/17 Range/Units 05:55 Sodium 135 L (137-145) mmol/L Potassium 4.7 (3.6-5.0) mmol/L Chloride 98.5 (98-107) mmol/L Carbon Dioxide 24 (22-30) mmol/L BUN 53 H (7-17) mg/dL Creatinine 4.0 H (0.7-1.2) mg/dL Glucose 143 H (65-100) mg/dL Calcium 7.9 L (8.4-10.2) mg/dL
--- NOTE | 2017-08-21 12:03 | Progress Note ---
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 Cont. Strict I/O, daily weight and monitor uop q shift. Cont. diuresis, supplemental oxygen, low sodium diet. Follow-up serial chest x-ray Echocardiogram 03/2017 revealed moderate to severe concentric left ventricular hypertrophy with EF 45-50%. The left ventricular systolic function was mildly decreased. Moderate to severe mitral regurgitation and evidence of moderate pulmonary hypertension. Normal stress thallium test 10/2016 at [facility]. Elevated d-dimer Consider VQ scan. Accelerated hypertension Monitor bp q shift, continue antihypertensive therpay, IV hydralazine prn, goal systolic overnight betweeen 165-180. Anemia of CKD Transfuse 2 units PRBCs. Hemoglobin noted to be 6.2 this morning. No signs of active bleeding. Diabetes Consistent carbohydrate diet, insulin, accu check Acute renal failure on CKD Nephrology consulted, monitor uop q shift, urine electrolytes. Patient was previously recommended for hemodialysis but declined. Respiratory failure D dimer, Chest x ray, NIPPV as clinically indicated, ABG, supplemental oxygen, nebulizer therapy. DVT prophylaxis History Interval history: No new issues overnight. No complaints of chest pain or shortness of breath. Hospitalist Physical - Constitutional Vitals: Temp Pulse Resp BP Pulse Ox 98.6 F 64 20 166/56 100 08/21/17 09:39 08/21/17 10:00 08/21/17 09:39 08/21/17 10:00 08/21/17 09:39 General appearance: Present: no acute distress - EENT Eyes: Present: PERRL, EOM intact ENT: hearing intact, clear oral mucosa, dentition normal - Neck Neck: Present: supple, normal ROM - Respiratory Respiratory effort: normal Respiratory: bilateral: CTA - Cardiovascular Rhythm: regular Heart Sounds: Present: S1 & S2. Absent: gallop, rub - Extremities Extremities: no ischemia, No edema, Full ROM - Abdominal General gastrointestinal: soft, non-tender, non-distended, normal bowel sounds - Integumentary Integumentary: Present: clear, warm, dry - Neurologic Neurologic: CNII-XII intact, moves all extremities Results - Labs CBC & Chem 7: 08/21/17 05:55 08/21/17 05:55 Labs: Laboratory Last Values WBC 4.8 K/mm3 (4.5-11.0) 08/21/17 05:55 RBC 1.95 M/mm3 (3.65-5.03) L 08/21/17 05:55 Hgb 6.2 gm/dl (10.1-14.3) L 08/21/17 05:55 Hct 19.4 % (30.3-42.9) L* 08/21/17 05:55 MCV 100 fl (79-97) H 08/21/17 05:55 MCH 32 pg (28-32) 08/21/17 05:55 MCHC 32 % (30-34) 08/21/17 05:55 RDW 16.8 % (13.2-15.2) H 08/21/17 05:55 Plt Count 155 K/mm3 (140-440) 08/21/17 05:55 Lymph % (Auto) 16.5 % (13.4-35.0) 08/21/17 05:55 [place] % (Auto) 10.5 % (0.0-7.3) H 08/21/17 05:55 Eos % (Auto) 9.6 % (0.0-4.3) H 08/21/17 05:55 Baso % (Auto) 1.0 % (0.0-1.8) 08/21/17 05:55 Lymph # 0.8 K/mm3 (1.2-5.4) L 08/21/17 05:55 [place] # 0.5 K/mm3 (0.0-0.8) 08/21/17 05:55 Eos # 0.5 K/mm3 (0.0-0.4) H 08/21/17 05:55 Baso # 0.0 K/mm3 (0.0-0.1) 08/21/17 05:55 Seg Neutrophils % 62.4 % (40.0-70.0) 08/21/17 05:55 Seg Neutrophils # 3.0 K/mm3 (1.8-7.7) 08/21/17 05:55 D-Dimer 1867.54 ng/mlDDU (0-234) H 08/19/17 20:34 Sodium 135 mmol/L (137-145) L 08/21/17 05:55 Potassium 4.7 mmol/L (3.6-5.0) 08/21/17 05:55 Chloride 98.5 mmol/L (98-107) 08/21/17 05:55 Carbon Dioxide 24 mmol/L (22-30) 08/21/17 05:55 Anion Gap 17 mmol/L 08/21/17 05:55 BUN 53 mg/dL (7-17) H 08/21/17 05:55 Creatinine 4.0 mg/dL (0.7-1.2) H 08/21/17 05:55 Estimated GFR 11 ml/min 08/21/17 05:55 BUN/Creatinine Ratio 13 % 08/21/17 05:55 Glucose 143 mg/dL (65-100) H 08/21/17 05:55 POC Glucose 155 (70-105) H 08/21/17 06:12 Calcium 7.9 mg/dL (8.4-10.2) L 08/21/17 05:55 Phosphorus 5.20 mg/dL (2.5-4.5) H 08/21/17 05:55 Magnesium 2.30 mg/dL (1.7-2.3) 08/21/17 05:55 Troponin T 0.051 ng/mL (0.00-0.029) H 08/19/17 23:14 NT-Pro-B Natriuret Pep > 47778 pg/mL (0-900) H 08/19/17 20:34 Triglycerides 88 mg/dL (2-149) 08/19/17 18:10 Cholesterol 119 mg/dL (50-199) 08/19/17 18:10 LDL Cholesterol Direct 58 mg/dL (50-130) 08/19/17 18:10 HDL Cholesterol 56 mg/dL (40-59) 08/19/17 18:10 Cholesterol/HDL Ratio 2.12 % 08/19/17 18:10 TSH 3.750 mlU/mL (0.270-4.200) 08/19/17 20:49 Free T4 1.44 ng/dL (0.76-1.46) 08/19/17 20:49 Blood Type A POSITIVE 08/21/17 08:13 Antibody Screen Negative 08/21/17 08:13 Crossmatch See Detail 08/21/17 08:13
[2017-08-21] MEDS: SODIUM CHLORIDE FLUSH SYRINGE 10 ML IV SCH ×2 (13:20→21:23)
[2017-08-21] MEDS: LATANOPROST 0.005% OU SCH (21:24)
[2017-08-21] MEDS: HumaLOG SUB-Q SCH (23:59)
[2017-08-22] MEDS: LASIX IV SCH ×2 (05:17→18:41)
[2017-08-22 06:33] LABS: Basophils % (Auto) 0.3 % (0.0-1.8); Eosinophils # (Auto) 0.4 K/mm3 (0.0-0.4); Eosinophils % (Auto) 6.5 % (0.0-4.3); Hematocrit 26.4 % (30.3-42.9); Lymphocytes # (Auto) 0.7 K/mm3 (1.2-5.4); Lymphocytes % (Auto) 11.4 % (13.4-35.0); Mean Corpuscular HGB Conc 34 % (30-34); Mean Corpuscular Hemoglobin 32 pg (28-32); Mean Corpuscular Volume 94 fl (79-97); Monocytes # (Auto) 0.6 K/mm3 (0.0-0.8); Monocytes % (Auto) 10.8 % (0.0-7.3); Platelet Count 150 K/mm3 (140-440); Red Blood Count 2.82 M/mm3 (3.65-5.03); Red Cell Distribution Width 16.8 % (13.2-15.2)
[2017-08-22 06:56] LABS: Calcium 8.2 mg/dL (8.4-10.2)
--- NOTE | 2017-08-22 08:29 | Progress Note ---
Assessment and Plan 1. CKD stage 5: Patient still refusing to go on hemodialysis. No Uremic signs at this time. Follow renal function. 2. Uncontrolled Hypertension: BP is improving. Continue home meds. Monitor BP. 3. CHF exacerbation: Continue IV Lasix. 4. Anemia: S/p 2 units of PRBC yesterday. Epogen. 5. Secondary Hyperparathyroidism: Continue Calcitriol. Subjective Date of service: 08/22/17 Interval history: Patient is doing ok. Objective - Vital Signs Vital signs: Vital Signs - 12hr 08/21/17 08/21/17 08/21/17 21:01 22:00 23:32 Temperature 98.3 F Pulse Rate 59 L 63 Respiratory 20 Rate Blood Pressure Blood Pressure 125/53 [Right] O2 Sat by Pulse 98 100 98 Oximetry 08/22/17 08/22/17 08/22/17 02:35 04:16 04:17 Temperature 98.4 F Pulse Rate 66 65 Respiratory 20 20 Rate Blood Pressure 139/54 Blood Pressure [Right] O2 Sat by Pulse 97 97 Oximetry - General Appearance General appearance: well-developed, well-nourished, appears stated age, other ( no distress) EENT: ATNC, PERRL, mucous membranes moist, hearing intact Neck: supple Respiratory: Present: Clear to Ascultation Cardiology: regular, S1S2 Gastrointestinal: normoactive bowel sounds, no tenderness Integumentary: chronic venous stasis Neurologic: no asterixis, alert and oriented x3, other (bilateral blindness) Musculoskeletal: other (trace pedal edema ) Psychiatric: mood/affect appropriate, cooperative - Lab 08/22/17 05:51 08/22/17 05:51 Most recent lab results Calcium 8.2 mg/dL (8.4-10.2) L 08/22/17 05:51 Phosphorus 5.20 mg/dL (2.5-4.5) H 08/21/17 05:55 Magnesium 2.30 mg/dL (1.7-2.3) 08/21/17 05:55
[2017-08-22] MEDS: PROTONIX PO SCH ×2 (10:00→22:14)
[2017-08-22] MEDS: FEOSOL PO SCH (10:00)
[2017-08-22] MEDS: BABY ASPIRIN PO SCH (10:00)
[2017-08-22] MEDS: Renal Caps PO SCH (10:00)
[2017-08-22] MEDS: PROCARDIA XL PO SCH (10:01)
[2017-08-22] MEDS: CARDURA PO SCH (10:01)
[2017-08-22] MEDS: PHOSLO PO SCH ×3 (10:01→18:41)
[2017-08-22] MEDS: ROCALTROL PO SCH (10:01)
--- NOTE | 2017-08-22 10:01 | Progress Note ---
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 Cont. Strict I/O, daily weight and monitor uop q shift. Cont. IV diuresis with Lasix, supplemental oxygen, low sodium diet. Follow-up serial chest x-ray Echocardiogram 03/2017 revealed moderate to severe concentric left ventricular hypertrophy with EF 45-50%. The left ventricular systolic function was mildly decreased. Moderate to severe mitral regurgitation and evidence of moderate pulmonary hypertension. Normal stress thallium test 10/2016 at [facility]. Elevated d-dimer Patient still complains of dyspnea. Therefore, given her renal function, we will check VQ scan Accelerated hypertension Monitor bp q shift, continue antihypertensive therpay, IV hydralazine prn, goal systolic overnight betweeen 165-180. Anemia of CKD Transfuse 2 units PRBCs. Hemoglobin noted to be 6.2 this morning. No signs of active bleeding. Diabetes Consistent carbohydrate diet, insulin, accu check CKD stage V Nephrology following. Patient was previously recommended for hemodialysis but continues to decline treatment. Continue to monitor renal function. Acute hypoxic Respiratory failure NIPPV as clinically indicated. Continue supplemental oxygen, nebulizer therapy. DVT prophylaxis History Interval history: No new issues overnight. Patient still complains of shortness of breath this morning. Hospitalist Physical - Constitutional Vitals: Temp Pulse Resp BP Pulse Ox 98.4 F 65 20 139/54 97 08/22/17 04:16 08/22/17 04:17 08/22/17 04:16 08/22/17 04:16 08/22/17 04:17 General appearance: Present: no acute distress - EENT Eyes: Present: PERRL, EOM intact ENT: hearing intact, clear oral mucosa, dentition normal - Neck Neck: Present: supple, normal ROM - Respiratory Respiratory effort: normal Respiratory: bilateral: CTA - Cardiovascular Rhythm: regular Heart Sounds: Present: S1 & S2. Absent: gallop, rub - Extremities Extremities: no ischemia, No edema, Full ROM - Abdominal General gastrointestinal: soft, non-tender, non-distended, normal bowel sounds - Integumentary Integumentary: Present: clear, warm, dry - Neurologic Neurologic: CNII-XII intact, moves all extremities Results - Labs CBC & Chem 7: 08/22/17 05:51 08/22/17 05:51 Labs: Laboratory Last Values WBC 5.8 K/mm3 (4.5-11.0) 08/22/17 05:51 RBC 2.82 M/mm3 (3.65-5.03) L 08/22/17 05:51 Hgb 9.0 gm/dl (10.1-14.3) L 08/22/17 05:51 Hct 26.4 % (30.3-42.9) L D 08/22/17 05:51 MCV 94 fl (79-97) 08/22/17 05:51 MCH 32 pg (28-32) 08/22/17 05:51 MCHC 34 % (30-34) 08/22/17 05:51 RDW 16.8 % (13.2-15.2) H 08/22/17 05:51 Plt Count 150 K/mm3 (140-440) 08/22/17 05:51 Lymph % (Auto) 11.4 % (13.4-35.0) L 08/22/17 05:51 [place] % (Auto) 10.8 % (0.0-7.3) H 08/22/17 05:51 Eos % (Auto) 6.5 % (0.0-4.3) H 08/22/17 05:51 Baso % (Auto) 0.3 % (0.0-1.8) 08/22/17 05:51 Lymph # 0.7 K/mm3 (1.2-5.4) L 08/22/17 05:51 [place] # 0.6 K/mm3 (0.0-0.8) 08/22/17 05:51 Eos # 0.4 K/mm3 (0.0-0.4) 08/22/17 05:51 Baso # 0.0 K/mm3 (0.0-0.1) 08/22/17 05:51 Seg Neutrophils % 71.0 % (40.0-70.0) H 08/22/17 05:51 Seg Neutrophils # 4.1 K/mm3 (1.8-7.7) 08/22/17 05:51 D-Dimer 1867.54 ng/mlDDU (0-234) H 08/19/17 20:34 Sodium 136 mmol/L (137-145) L 08/22/17 05:51 Potassium 4.7 mmol/L (3.6-5.0) 08/22/17 05:51 Chloride 96.9 mmol/L (98-107) L 08/22/17 05:51 Carbon Dioxide 23 mmol/L (22-30) 08/22/17 05:51 Anion Gap 21 mmol/L 08/22/17 05:51 BUN 59 mg/dL (7-17) H 08/22/17 05:51 Creatinine 4.4 mg/dL (0.7-1.2) H 08/22/17 05:51 Estimated GFR 10 ml/min 08/22/17 05:51 BUN/Creatinine Ratio 13 % 08/22/17 05:51 Glucose 174 mg/dL (65-100) H 08/22/17 05:51 POC Glucose 211 (70-105) H 08/22/17 06:07 Calcium 8.2 mg/dL (8.4-10.2) L 08/22/17 05:51 Phosphorus 5.20 mg/dL (2.5-4.5) H 08/21/17 05:55 Magnesium 2.30 mg/dL (1.7-2.3) 08/21/17 05:55 Troponin T 0.051 ng/mL (0.00-0.029) H 08/19/17 23:14 NT-Pro-B Natriuret Pep > 15284 pg/mL (0-900) H 08/19/17 20:34 Triglycerides 88 mg/dL (2-149) 08/19/17 18:10 Cholesterol 119 mg/dL (50-199) 08/19/17 18:10 LDL Cholesterol Direct 58 mg/dL (50-130) 08/19/17 18:10 HDL Cholesterol 56 mg/dL (40-59) 08/19/17 18:10 Cholesterol/HDL Ratio 2.12 % 08/19/17 18:10 TSH 3.750 mlU/mL (0.270-4.200) 08/19/17 20:49 Free T4 1.44 ng/dL (0.76-1.46) 08/19/17 20:49 Blood Type A POSITIVE 08/21/17 08:13 Antibody Screen Negative 08/21/17 08:13 Crossmatch See Detail 08/21/17 08:13
[2017-08-22] MEDS: COREG PO SCH ×2 (10:02→22:05)
[2017-08-22] MEDS: APRESOLINE PO SCH ×3 (10:02→22:14)
[2017-08-22] MEDS: PROVENTIL IH PRN (10:05)
[2017-08-22] MEDS: HumaLOG SUB-Q SCH ×4 (10:07→22:22)
[2017-08-22] MEDS: SODIUM CHLORIDE FLUSH SYRINGE 10 ML IV SCH ×2 (10:08→22:15)
--- NOTE | 2017-08-22 12:13 | XRay Report ---
PORTABLE CHEST INDICATION: Elevated D dimer, dyspnea. COMPARISON: 08/19/2017 FINDINGS: Portable, frontal chest radiograph again demonstrates limited inspiration and exaggerated cardiomediastinal silhouette/cardiomegaly and possible pulmonary arterial hypertension. Dense aortic knob calcifications and demineralized bones with few degenerative changes again noted. Right hemidiaphragm slightly elevated. No large pleural effusions with slightly crowded lung markings. Minimal fluid or thickening along the right minor fissure. CONCLUSION: Cardiomegaly again noted in this patient with possible pulmonary arterial hypertension, as described. Please correlate. Thank you for the opportunity to participate in this patient's care.
--- NOTE | 2017-08-22 12:16 | Progress Note ---
Assessment and Plan Recurrent volume overload, multifactorial CHF with preserved ejection fraction Chronic anemia s/p transfusion of PRBCs Severe uncontrolled hypertension managed with Cardura and Procardia XL Chronic kidney disease patient has declined HD in the past EF 45-50% on echocardiogram 03/2017. Normal stress thallium test 10/2016 at [facility]. Continue medical therapy for heart failure with a preserved EF. Otherwise, conservative cardiac management. Subjective Date of service: 08/22/17 Interval history: Patient is resting in bed comfortably. No distress noted. Objective Vital Signs Temp Pulse Resp BP BP Pulse Ox 08/22/17 10:17 98 08/22/17 10:02 63 150/62 08/22/17 10:01 63 150/62 08/22/17 07:58 98.2 F 64 16 150/62 98 08/22/17 04:17 65 97 08/22/17 04:16 98.4 F 66 20 139/54 97 08/22/17 02:35 20 08/21/17 23:32 98.3 F 63 20 125/53 98 08/21/17 22:00 100 08/21/17 21:01 59 L 98 08/21/17 19:59 98.0 F 59 L 20 116/47 98 08/21/17 19:40 59 L 08/21/17 18:57 98.2 F 60 18 149/56 100 08/21/17 18:27 98.3 F 65 18 169/61 100 08/21/17 17:57 98.4 F 67 18 171/61 98 08/21/17 17:42 98 F 67 18 171/61 99 08/21/17 16:55 97.9 F 66 18 196/75 98 08/21/17 16:10 98.0 F 63 18 191/71 100 08/21/17 15:33 98.3 F 63 16 200/72 100 08/21/17 15:03 98.3 F 63 16 200/71 100 08/21/17 14:43 62 18 199/73 100 08/21/17 14:33 98.2 F 63 18 188/73 100 08/21/17 14:13 62 18 179/69 100 08/21/17 14:03 98.4 F 62 18 186/67 100 08/21/17 13:48 98.2 F 63 18 193/64 98 08/21/17 12:50 98.2 F 63 18 193/64 100 - Physical Examination General: No Apparent Distress HEENT: Positive: PERRL Neck: Positive: trachea midline Cardiac: Positive: Reg Rate and Rhythm Lungs: Positive: Decreased Breath Sounds Neuro: Positive: Grossly Intact Extremities: Present: +1 Edema - Labs and Meds CBC 08/22/17 Range/Units 05:51 WBC 5.8 (4.5-11.0) K/mm3 RBC 2.82 L (3.65-5.03) M/mm3 Hgb 9.0 L (10.1-14.3) gm/dl Hct 26.4 L D (30.3-42.9) % Plt Count 150 (140-440) K/mm3 Lymph # 0.7 L (1.2-5.4) K/mm3 Door # 0.6 (0.0-0.8) K/mm3 Eos # 0.4 (0.0-0.4) K/mm3 Baso # 0.0 (0.0-0.1) K/mm3 Comprehensive Metabolic Panel 08/22/17 Range/Units 05:51 Sodium 136 L (137-145) mmol/L Potassium 4.7 (3.6-5.0) mmol/L Chloride 96.9 L (98-107) mmol/L Carbon Dioxide 23 (22-30) mmol/L BUN 59 H (7-17) mg/dL Creatinine 4.4 H (0.7-1.2) mg/dL Glucose 174 H (65-100) mg/dL Calcium 8.2 L (8.4-10.2) mg/dL
--- NOTE | 2017-08-22 12:17 | Nuclear Medicine Report ---
VENTILATION PERFUSION SCAN INDICATION: Elevated d-dimer, dyspnea. COMPARISON: None similar. FINDINGS: VQ scan performed in anterior, posterior, lateral and oblique projections. 5 mCi of technetium 99m MAA was used for the perfusion assessment while 15 millicuries of Xenon 133 was utilized for the ventilation portion of the study. Ventilation images demonstrate slightly heterogeneous radiotracer distribution throughout both lungs. The perfusion correlates with the ventilation without large lobar or definite segmental defects. Accompanying chest radiograph again demonstrates cardiomegaly with grossly clear lungs. CONCLUSION: Low probability exam for pulmonary embolism. Thank you for the opportunity to participate in this patient's care.
[2017-08-22] MEDS: HEPARIN SUB-Q SCH ×2 (14:00→22:14)
[2017-08-22] MEDS: LATANOPROST 0.005% OU SCH (22:17)
[2017-08-22] MEDS ORDERED: HumaLOG SUB-Q SCH ×2 (23:10→23:55)
[2017-08-23] MEDS: LASIX IV SCH (05:26)
[2017-08-23] MEDS: HEPARIN SUB-Q SCH ×3 (05:26→23:09)
[2017-08-23 08:27] LABS: Basophils % (Auto) 0.3 % (0.0-1.8); Eosinophils # (Auto) 0.4 K/mm3 (0.0-0.4); Eosinophils % (Auto) 5.3 % (0.0-4.3); Hematocrit 28.6 % (30.3-42.9); Hemoglobin 9.6 gm/dl (10.1-14.3); Lymphocytes # (Auto) 0.6 K/mm3 (1.2-5.4); Lymphocytes % (Auto) 7.7 % (13.4-35.0); Mean Corpuscular HGB Conc 34 % (30-34); Mean Corpuscular Hemoglobin 32 pg (28-32); Mean Corpuscular Volume 94 fl (79-97); Monocytes # (Auto) 0.7 K/mm3 (0.0-0.8); Monocytes % (Auto) 8.2 % (0.0-7.3); Platelet Count 176 K/mm3 (140-440); Red Blood Count 3.04 M/mm3 (3.65-5.03)
--- NOTE | 2017-08-23 08:28 | Progress Note ---
Assessment and Plan 1. CKD stage 5: Patient still refusing hemodialysis. No Uremic signs at this time. Follow renal function. 2. Uncontrolled Hypertension: BP is improving. Continue home meds. Monitor BP. 3. CHF exacerbation: Change to PO Lasix. 4. Anemia: S/p 2 units of PRBC on 08/21/17. S/p Epogen. 5. Secondary Hyperparathyroidism: Continue Calcitriol. Subjective Date of service: 08/23/17 Interval history: Patient is doing ok. Objective - Vital Signs Vital signs: Vital Signs - 12hr 08/22/17 08/23/17 08/23/17 20:57 00:06 03:28 Temperature 98.4 F 97.7 F Pulse Rate 67 64 Respiratory 20 23 18 Rate Blood Pressure 143/45 141/49 O2 Sat by Pulse 95 94 Oximetry 08/23/17 04:35 Temperature 98.3 F Pulse Rate 69 Respiratory 20 Rate Blood Pressure 128/46 O2 Sat by Pulse 93 Oximetry - General Appearance General appearance: well-developed, well-nourished, appears stated age, other ( no distress) EENT: ATNC Neck: supple Respiratory: Present: Clear to Ascultation Cardiology: regular, S1S2, no murmurs Gastrointestinal: normoactive bowel sounds, no tenderness Integumentary: chronic venous stasis Neurologic: no asterixis, alert and oriented x3, other (bilateral blindness) Musculoskeletal: other (no edema) - Lab 08/23/17 08:07 08/23/17 08:07 Most recent lab results Calcium 8.2 mg/dL (8.4-10.2) L 08/22/17 05:51 Phosphorus 5.20 mg/dL (2.5-4.5) H 08/21/17 05:55 Magnesium 2.30 mg/dL (1.7-2.3) 08/21/17 05:55
[2017-08-23 09:17] LABS: Calcium 8.4 mg/dL (8.4-10.2)
[2017-08-23] MEDS: HumaLOG SUB-Q SCH ×4 (10:02→23:07)
[2017-08-23] MEDS: ROCALTROL PO SCH (10:03)
[2017-08-23] MEDS: PROCARDIA XL PO SCH (10:03)
[2017-08-23] MEDS: FEOSOL PO SCH (10:03)
[2017-08-23] MEDS: PHOSLO PO SCH ×3 (10:03→18:25)
[2017-08-23] MEDS: Renal Caps PO SCH (10:03)
[2017-08-23] MEDS: BABY ASPIRIN PO SCH (10:04)
[2017-08-23] MEDS: PROTONIX PO SCH ×2 (10:04→23:08)
[2017-08-23] MEDS: APRESOLINE PO SCH ×3 (10:08→20:00)
[2017-08-23] MEDS: CARDURA PO SCH (10:09)
[2017-08-23] MEDS: COREG PO SCH ×2 (10:09→23:08)
[2017-08-23] MEDS: PROVENTIL IH PRN (10:54)
--- NOTE | 2017-08-23 12:49 | Progress Note ---
Assessment and Plan Assessment and plan: Patient is a 72-year-old [place] woman who speaks [place] with history of hypertension, insulin-dependent diabetes mellitus2, glaucoma, CKD V, GERD, CHF and anemia of chronic disease who presents to the hospital with shortness of breath. pCXR reported as cardiomegaly and pulmonary venous congestion -SOB mostly fluid overlaod due to ESRD, refusing HD, refusing hospice -Elevated d-dimer, v/w low prob unlikely PE -Accelerated hypertension Monitor bp q shift, continue antihypertensive therpay, IV hydralazine prn, goal systolic overnight betweeen 165-180. -Anemia of CKD Transfuse 2 units PRBCs. Hemoglobin noted to be 6.2 this morning. No signs of active bleeding. -Diabetes mellitus type 2 Consistent carbohydrate diet, insulin, accu check -CKD stage V Nephrology following. Patient was previously recommended for hemodialysis but continues to decline treatment. Continue to monitor renal function. -Acute hypoxic Respiratory failure NIPPV as clinically indicated. Continue supplemental oxygen, nebulizer therapy. -DVT prophylaxis reviewed History Interval history: Patient was seen and examined. Follow-up on current diagnosis. Overnight uneventful. Patient denies any chest pain, shortness breath, nausea/vomiting or severe headaches. Imaging, nursing note, chart, labs and old chart reviewed. Discussed with patient. Hospitalist Physical - Physical exam Narrative exam: GEN: WDWN, NAD, AWAKE, ALERT, ORIENTATED, speaking [place] to me says she also speaks [place] HEENT: NCAT, EOMI, PERRL, OP Clear NECK: supple, no adenopathy, no thyromegaly, no JVD CVS/HEART: RRR, NORMAL S1S2, pulses present bilaterally CHEST/LUNGS: Bibasal crackles diminished breath sounds bilaterally, Symmetrical chest expansion, adequate air entry bilaterally GI/Abdomen: soft, NTND, good bowel sounds, no guarding or rebound /Bladder: no suprapubic tenderness, no CVA or paraspinal tenderness EXT/Skin: no c/c/e, no obvious rash MSK: FROM x 4 Neuro: CN 2-12 grossly intact, no new focal deficits Psych: calm - Constitutional Vitals: Temp Pulse Resp BP Pulse Ox 98.7 F 93 H 16 155/57 100 08/23/17 07:51 08/23/17 11:07 08/23/17 11:07 08/23/17 10:09 08/23/17 10:00 General appearance: Present: no acute distress Results - Labs CBC & Chem 7: 08/23/17 08:07 08/23/17 08:07 Labs: Laboratory Last Values WBC 8.2 K/mm3 (4.5-11.0) 08/23/17 08:07 RBC 3.04 M/mm3 (3.65-5.03) L 08/23/17 08:07 Hgb 9.6 gm/dl (10.1-14.3) L 08/23/17 08:07 Hct 28.6 % (30.3-42.9) L 08/23/17 08:07 MCV 94 fl (79-97) 08/23/17 08:07 MCH 32 pg (28-32) 08/23/17 08:07 MCHC 34 % (30-34) 08/23/17 08:07 RDW 17.0 % (13.2-15.2) H 08/23/17 08:07 Plt Count 176 K/mm3 (140-440) 08/23/17 08:07 Lymph % (Auto) 7.7 % (13.4-35.0) L 08/23/17 08:07 [place] % (Auto) 8.2 % (0.0-7.3) H 08/23/17 08:07 Eos % (Auto) 5.3 % (0.0-4.3) H 08/23/17 08:07 Baso % (Auto) 0.3 % (0.0-1.8) 08/23/17 08:07 Lymph # 0.6 K/mm3 (1.2-5.4) L 08/23/17 08:07 [place] # 0.7 K/mm3 (0.0-0.8) 08/23/17 08:07 Eos # 0.4 K/mm3 (0.0-0.4) 08/23/17 08:07 Baso # 0.0 K/mm3 (0.0-0.1) 08/23/17 08:07 Seg Neutrophils % 78.5 % (40.0-70.0) H 08/23/17 08:07 Seg Neutrophils # 6.4 K/mm3 (1.8-7.7) 08/23/17 08:07 D-Dimer 1867.54 ng/mlDDU (0-234) H 08/19/17 20:34 Sodium 137 mmol/L (137-145) 08/23/17 08:07 Potassium 4.3 mmol/L (3.6-5.0) 08/23/17 08:07 Chloride 98.6 mmol/L (98-107) 08/23/17 08:07 Carbon Dioxide 22 mmol/L (22-30) 08/23/17 08:07 Anion Gap 21 mmol/L 08/23/17 08:07 BUN 69 mg/dL (7-17) H 08/23/17 08:07 Creatinine 4.8 mg/dL (0.7-1.2) H 08/23/17 08:07 Estimated GFR 9 ml/min 08/23/17 08:07 BUN/Creatinine Ratio 14 % 08/23/17 08:07 Glucose 195 mg/dL (65-100) H 08/23/17 08:07 POC Glucose 204 (70-105) H 08/23/17 12:32 Calcium 8.4 mg/dL (8.4-10.2) 08/23/17 08:07 Phosphorus 5.20 mg/dL (2.5-4.5) H 08/21/17 05:55 Magnesium 2.30 mg/dL (1.7-2.3) 08/21/17 05:55 Troponin T 0.051 ng/mL (0.00-0.029) H 08/19/17 23:14 NT-Pro-B Natriuret Pep > 22897 pg/mL (0-900) H 08/19/17 20:34 Triglycerides 88 mg/dL (2-149) 08/19/17 18:10 Cholesterol 119 mg/dL (50-199) 08/19/17 18:10 LDL Cholesterol Direct 58 mg/dL (50-130) 08/19/17 18:10 HDL Cholesterol 56 mg/dL (40-59) 08/19/17 18:10 Cholesterol/HDL Ratio 2.12 % 08/19/17 18:10 TSH 3.750 mlU/mL (0.270-4.200) 08/19/17 20:49 Free T4 1.44 ng/dL (0.76-1.46) 03/25/18 20:49 Blood Type A POSITIVE 08/21/17 08:13 Antibody Screen Negative 08/21/17 08:13 Crossmatch See Detail 08/21/17 08:13
[2017-08-23] MEDS: LASIX PO SCH ×2 (13:43→18:00)
[2017-08-23] MEDS: SODIUM CHLORIDE FLUSH SYRINGE 10 ML IV SCH ×2 (13:45→23:16)
[2017-08-23] MEDS ORDERED: DULCOLAX PR ONE (13:50)
--- NOTE | 2017-08-23 15:45 | Progress Note ---
Assessment and Plan - Patient Problems (1) CHF (congestive heart failure) Current Visit: Yes Status: Acute Qualifiers: Heart failure type: systolic Heart failure chronicity: acute on chronic Qualified Code(s): I50.23 - Acute on chronic systolic (congestive) heart failure Plan to address problem: Medical therapy for coronary artery disease and systolic heart failure. Subjective Date of service: 08/23/17 Interval history: Patient is comfortable, no acute distress. No new cardiac complaints. Objective Vital Signs Temp Pulse Pulse Resp Resp BP BP 08/23/17 14:04 98.3 F 67 18 168/63 08/23/17 11:07 93 H 16 08/23/17 10:54 82 16 08/23/17 10:09 67 155/57 08/23/17 10:00 08/23/17 07:55 76 08/23/17 07:52 64 08/23/17 07:51 98.7 F 66 18 170/64 08/23/17 04:35 98.3 F 69 20 128/46 08/23/17 03:28 18 08/23/17 00:06 97.7 F 64 23 141/49 08/22/17 20:57 98.4 F 67 20 143/45 08/22/17 19:45 64 Pulse Ox 08/23/17 14:04 08/23/17 11:07 08/23/17 10:54 08/23/17 10:09 08/23/17 10:00 100 08/23/17 07:55 91 08/23/17 07:52 100 08/23/17 07:51 100 08/23/17 04:35 93 08/23/17 03:28 08/23/17 00:06 94 08/22/17 20:57 95 08/22/17 19:45 - Physical Examination General: No Apparent Distress HEENT: Positive: PERRL Neck: Positive: trachea midline Cardiac: Positive: Reg Rate and Rhythm Lungs: Positive: Decreased Breath Sounds Neuro: Positive: Grossly Intact Abdomen: Positive: Soft Skin: Positive: Clear Extremities: Present: edema (TRACE) - Labs and Meds CBC 08/23/17 Range/Units 08:07 WBC 8.2 (4.5-11.0) K/mm3 RBC 3.04 L (3.65-5.03) M/mm3 Hgb 9.6 L (10.1-14.3) gm/dl Hct 28.6 L (30.3-42.9) % Plt Count 176 (140-440) K/mm3 Lymph # 0.6 L (1.2-5.4) K/mm3 [place] # 0.7 (0.0-0.8) K/mm3 Eos # 0.4 (0.0-0.4) K/mm3 Baso # 0.0 (0.0-0.1) K/mm3 Comprehensive Metabolic Panel 08/23/17 Range/Units 08:07 Sodium 137 (137-145) mmol/L Potassium 4.3 (3.6-5.0) mmol/L Chloride 98.6 (98-107) mmol/L Carbon Dioxide 22 (22-30) mmol/L BUN 69 H (7-17) mg/dL Creatinine 4.8 H (0.7-1.2) mg/dL Glucose 195 H (65-100) mg/dL Calcium 8.4 (8.4-10.2) mg/dL
[2017-08-23] MEDS: LATANOPROST 0.005% OU SCH (22:00)
[2017-08-24] MEDS: LASIX PO SCH ×2 (06:06→19:59)
[2017-08-24] MEDS: HEPARIN SUB-Q SCH ×3 (06:08→21:56)
--- NOTE | 2017-08-24 08:13 | Progress Note ---
Assessment and Plan 1. CKD stage 5: Patient symptoms are likely secondary to uremia. Discussed with patient about indications, benefits and risks involved in hemodialysis. She agreed to proceed with hemodialysis. She doesn't want to call his son. Made her NPO for catheter placement. Vascular consulted. HD orders placed. 2. Uncontrolled Hypertension: BP is improving. Continue home meds. Monitor BP. 3. CHF exacerbation: Followed by Cards. 4. Anemia: S/p 2 units of PRBC on 08/21/17. S/p Epogen. 5. Secondary Hyperparathyroidism: Continue Calcitriol. Need outpatient HD chair. Subjective Date of service: 08/24/17 Interval history: Patient is not feeling well. Appetite has decreased and feeling generally weak. Objective - Vital Signs Vital signs: Vital Signs - 12hr 08/23/17 08/23/17 08/24/17 20:25 23:08 00:22 Temperature 98.2 F 99.1 F Pulse Rate 69 69 88 Pulse Rate [ Apical] Respiratory 20 20 Rate Blood Pressure 164/59 164/59 158/59 O2 Sat by Pulse 100 93 Oximetry 08/24/17 08/24/17 08/24/17 01:00 02:57 04:50 Temperature 99.4 F Pulse Rate 66 79 Pulse Rate [ 69 Apical] Respiratory 18 20 Rate Blood Pressure 205/81 O2 Sat by Pulse 100 97 Oximetry 08/24/17 04:51 Temperature Pulse Rate 79 Pulse Rate [ Apical] Respiratory Rate Blood Pressure O2 Sat by Pulse 97 Oximetry - General Appearance General appearance: well-developed, appears stated age, other (no distress) EENT: ATNC, PERRL, hearing intact Neck: supple Respiratory: Present: Clear to Ascultation Cardiology: regular, S1S2 Gastrointestinal: normoactive bowel sounds, no tenderness Integumentary: chronic venous stasis Neurologic: no asterixis, alert and oriented x3, other (bilateral blindness) Musculoskeletal: other (no edema) Psychiatric: mood/affect appropriate, cooperative - Lab 08/24/17 07:34 08/24/17 07:34 Most recent lab results Calcium 8.4 mg/dL (8.4-10.2) 08/23/17 08:07 Phosphorus 5.20 mg/dL (2.5-4.5) H 08/21/17 05:55 Magnesium 2.30 mg/dL (1.7-2.3) 08/21/17 05:55
[2017-08-24 08:21] LABS: Basophils % (Auto) 0.3 % (0.0-1.8); Eosinophils # (Auto) 0.3 K/mm3 (0.0-0.4); Eosinophils % (Auto) 3.7 % (0.0-4.3); Hematocrit 29.9 % (30.3-42.9); Lymphocytes # (Auto) 0.8 K/mm3 (1.2-5.4); Lymphocytes % (Auto) 9.4 % (13.4-35.0); Mean Corpuscular HGB Conc 34 % (30-34); Mean Corpuscular Hemoglobin 32 pg (28-32); Mean Corpuscular Volume 94 fl (79-97); Monocytes # (Auto) 0.6 K/mm3 (0.0-0.8); Monocytes % (Auto) 7.4 % (0.0-7.3); Platelet Count 198 K/mm3 (140-440); Red Blood Count 3.16 M/mm3 (3.65-5.03); Red Cell Distribution Width 17.2 % (13.2-15.2)
[2017-08-24 08:47] LABS: Calcium 8.8 mg/dL (8.4-10.2)
[2017-08-24] MEDS ORDERED: NACL 0.9% 100 ML IV PRN (09:04)
[2017-08-24] MEDS: HumaLOG SUB-Q SCH ×4 (10:02→22:00)
[2017-08-24] MEDS: CARDURA PO SCH (10:03)
[2017-08-24] MEDS: PROTONIX PO SCH ×2 (10:03→21:56)
[2017-08-24] MEDS: FEOSOL PO SCH (10:03)
[2017-08-24] MEDS: Renal Caps PO SCH (10:03)
[2017-08-24] MEDS: PROCARDIA XL PO SCH (10:04)
[2017-08-24] MEDS: ROCALTROL PO SCH (10:04)
[2017-08-24] MEDS: PHOSLO PO SCH ×2 (10:05→19:56)
[2017-08-24] MEDS: APRESOLINE PO SCH ×3 (10:05→20:00)
[2017-08-24] MEDS: BABY ASPIRIN PO SCH (10:05)
[2017-08-24] MEDS: COREG PO SCH ×2 (10:05→21:55)
[2017-08-24] MEDS: SODIUM CHLORIDE FLUSH SYRINGE 10 ML IV SCH ×2 (10:09→21:58)
[2017-08-24] MEDS ORDERED: XYLOCAINE 1%/ EPI 1:100,000 INFILTRATI ONE (13:38)
[2017-08-24] MEDS ORDERED: HEPARIN 10,000 UNITS/10 ML ONE (13:38)
[2017-08-24] MEDS ORDERED: SUBLIMAZE ONE (13:38)
[2017-08-24] MEDS ORDERED: HEPARIN/NS 5000 UNIT/500ML(CATH LAB) 1,000 ML IR ONE (13:38)
[2017-08-24] MEDS ORDERED: ANCEF/STERILE WATER 2 GM/20 ML 2 GM/20 ML SYRINGE IV ONE (13:38)
[2017-08-24] MEDS ORDERED: VERSED ONE (13:38)
[2017-08-24] MEDS ORDERED: NACL 0.9% 250ML 250 ML ONE (13:39)
--- NOTE | 2017-08-24 14:25 | Operative Report ---
Operative Report Operative Report: EXAM: 1. Ultrasound-guided puncture of the right internal jugular vein 2. Fluoroscopic-guided placement of a right internal jugular tunneled cuffed hemodialysis catheter. DATE: 08/24/17 INDICATION: End-stage renal disease requiring hemodialysis access. MEDICATIONS: Please see nursing report for full details. DEVICES: 23 cm tip to cuff 15 Fr dual lumen hemodialysis catheter [employer] MACHINE OPERATOR: DB GALARZA MD CONTRAST: None PROCEDURE: The risks, benefits, and alternatives were discussed and informed consent was obtained. The patient was transported to the angiography suite in satisfactory/ stable condition and was transported onto the angiography table. The patient's right internal jugular vein was assessed with ultrasound and determined to be patent prior to procedure. The patient was prepped and draped in a sterile fashion. The puncture site was anesthetized. Under sonographic guidance, the right internal jugular vein was punctured with a 21-gauge micropuncture needle and a 0.018 inch wire was advanced into the inferior vena cava. The micropuncture needle was exchanged for a transitional dilator and the wire was retracted into the right atrium to wayne intravascular distance. The wire and inner dilator were removed. 0.035 inch wire was advanced through the transitional dilator into the inferior vena cava. A suitable exit site was identified on the patient's chest inferior and lateral to the venotomy. The site was anesthetized with local anesthetic and the track was anesthetized. Dermatotomy was made. The PermCath was attached to the tunneling device and tunneled between the dermatotomy to the venotomy. Over the 0.035 inch wire, serial dilatation was performed with ultimate placement of a peel-away sheath. The catheter was advanced through the peel- away sheath after the wire was removed and positioned centrally under fluoroscopic guidance. The peel-away sheath was removed. 4-0 Vicryl suture was used to close the venotomy and Dermabond was then applied. 2-0 Ethilon suture was used to secure the catheter at the dermatotomy. The catheter was charged with heparin 1000 units/mL space. Sterile dressing and biopatch applied. The patient was transferred from the angiography suite back to the floor in stable condition. FINDINGS: 1. Excellent flow was obtained through the dialysis catheter with 20 mL syringes. 2. The catheter tip is in the right atrium. IMPRESSION: 1. Successful ultrasound and fluoroscopically guided placement of a right internal jugular tunneled cuffed hemodialysis catheter.
--- NOTE | 2017-08-24 14:31 | Consultation ---
History of Present Illness - Reason for Consult Consult date: 08/24/17 Requesting physician: BARRY ESPINO - History of Present Illness This pt was admitted via the [facility] ER due to CP and hypertensive emergency on . She has been evaluated by the nephrology service, who have diagnosed CKD stage V and recommended initiation of HD. The pt initially refused, but has since agreed. A vascular surgery consult is requested to evaluated for temporary , and residential HD access. Past History Past Medical History: diabetes, GERD, heart failure, hypertension, hyperlipidemia, renal failure Past Surgical History: cholecystectomy Social history: . denies: smoking, alcohol abuse Family history: diabetes, hypertension Medications and Allergies Allergies Allergy/AdvReac Type Severity Reaction Status Date / Time No Known Allergies Allergy Unverified 07/14/14 15:02 Home Medications Medication Instructions Recorded Confirmed Last Taken Type Carvedilol [Coreg] 12.5 mg PO BID #60 tablet 05/30/17 08/20/17 2 Days Ago Rx ~08/18/17 Glimepiride [Amaryl] 2 mg PO QDDIAB 30 Days tablet 05/30/17 08/20/17 2 Weeks Ago Rx ~08/06/17 NovoLIN 70/30 6 units SQ Q12HR #1 vial 05/30/17 08/20/17 2 Days Ago Rx ~08/18/17 hydrALAZINE [Apresoline TAB] 100 mg PO TID #90 tab 05/30/17 08/20/17 2 Days Ago Rx ~08/18/17 Acetaminophen [Acetaminophen TAB] 650 mg PO Q4H PRN #30 tablet 07/17/17 3 Days Ago Rx ~08/17/17 Aspirin [Aspirin BABY CHEW TAB] 81 mg PO QDAY #30 tab.chew 07/17/17 08/20/17 1 Day Ago Rx ~08/19/17 AtorvaSTATin [Lipitor] 40 mg PO QHS #30 tablet 07/17/17 08/20/17 2 Days Ago Rx ~08/18/17 Calcitriol [Rocaltrol] 0.25 mcg PO QDAY #30 capsule 07/17/17 08/20/17 2 Days Ago Rx ~08/18/17 Calcium Acetate [Phoslo] 667 mg PO TIDWM #90 capsule 07/17/17 08/20/17 2 Days Ago Rx ~08/18/17 Carvedilol [Coreg] 12.5 mg PO BID #60 tablet 07/17/17 08/20/17 2 Days Ago Rx ~08/18/17 Ferrous Sulfate [Feosol 325 MG tab] 325 mg PO QDAY #30 tablet 07/17/17 08/20/17 2 Days Ago Rx ~08/18/17 Folic Acid/Vit B Comp W-C [Renal 1 cap PO QDAY #30 capsule 07/17/17 08/20/17 2 Days Ago Rx Caps] ~08/18/17 Latanoprost 0.005% 1 drops OU QHS #1 bottle 07/17/17 08/20/17 1 Day Ago Rx ~08/19/17 Pantoprazole [Protonix TAB] 40 mg PO BID #14 tablet 07/17/17 08/20/17 2 Days Ago Rx ~08/18/17 Torsemide [Demadex] 40 mg PO DAILY #30 tablet 07/17/17 08/20/17 2 Days Ago Rx ~08/18/17 Active Meds: Active Medications Acetaminophen (Tylenol) 650 mg PO Q4H PRN PRN Reason: Pain MILD(1-3)/Fever >100.5/CANALES Albuterol (Proventil) 2.5 mg IH Q4HRT PRN PRN Reason: Shortness Of Breath Last Admin: 08/23/17 10:54 Dose: 2.5 mg Aspirin (Baby Aspirin) 81 mg PO QDAY [facility] Last Admin: 08/24/17 10:05 Dose: 81 mg Atorvastatin Calcium (Lipitor) 40 mg PO QHS [facility] Last Admin: 08/23/17 23:08 Dose: 40 mg Calcitriol (Rocaltrol) 0.25 mcg PO QDAY [facility] Last Admin: 08/24/17 10:04 Dose: 0.25 mcg Calcium Acetate (Phoslo) 667 mg PO TIDWM [facility] Last Admin: 08/24/17 10:05 Dose: 667 mg Carvedilol (Coreg) 12.5 mg PO BID [facility] Last Admin: 08/24/17 10:05 Dose: 12.5 mg Doxazosin Mesylate (Cardura) 2 mg PO QDAY [facility] Last Admin: 08/24/17 10:03 Dose: 2 mg Epoetin Sivakumar (Procrit) 10,000 unit SUB-Q ONCE [facility] Ferrous Sulfate (Feosol) 325 mg PO QDAY [facility] Last Admin: 08/24/17 10:03 Dose: 325 mg Furosemide (Lasix) 80 mg PO 0600,1800 [facility] Last Admin: 08/24/17 06:06 Dose: 80 mg Heparin Sodium (Porcine) (Heparin) 5,000 unit SUB-Q Q8HR [facility] Last Admin: 08/24/17 06:08 Dose: 5,000 unit Hydralazine HCl (Apresoline) 100 mg PO TID [facility] Last Admin: 08/24/17 10:05 Dose: 100 mg Hydralazine HCl (Apresoline) 20 mg IV Q4HR PRN PRN Reason: Hypertension Last Admin: 08/20/17 22:55 Dose: 20 mg Sodium Chloride (Nacl 0.9%) 100 mls @ 999 mls/hr IV ALEX PRN PRN Reason: Hypotension Insulin Human Isoph/Insulin Regular (Humulin 70/30) 6 unit SUB-Q BIDDIAB [facility] Last Admin: 08/24/17 10:06 Dose: 6 unit Insulin Human Lispro (Humalog) 0 unit SUB-Q ACHS [facility]; Protocol Last Admin: 08/24/17 10:02 Dose: 2 unit Latanoprost (Latanoprost 0.005%) 1 drops OU QHS [facility] Last Admin: 08/23/17 22:00 Dose: Not Given Multivit/Ca Carb/B Cmplx/FA/Prenat (Renal Caps) 1 cap PO QDAY [facility] Last Admin: 08/24/17 10:03 Dose: 1 cap Nifedipine (Procardia Xl) 90 mg PO QDAY [facility] Last Admin: 08/24/17 10:04 Dose: 90 mg Ondansetron HCl (Zofran) 4 mg IV Q8H PRN PRN Reason: Nausea And Vomiting Last Admin: 08/20/17 22:56 Dose: 4 mg Pantoprazole Sodium (Protonix) 40 mg PO BID [facility] Last Admin: 08/24/17 10:03 Dose: 40 mg Sodium Chloride (Sodium Chloride Flush Syringe 10 Ml) 10 ml IV BID [facility] Last Admin: 08/24/17 10:09 Dose: 10 ml Sodium Chloride (Sodium Chloride Flush Syringe 10 Ml) 10 ml IV PRN PRN PRN Reason: LINE FLUSH Review of Systems All systems: negative Exam - Constitutional Vitals: Temp Pulse Resp BP Pulse Ox 97.9 F 79 18 184/69 100 08/24/17 12:09 08/24/17 04:51 08/24/17 12:09 08/24/17 12:09 08/24/17 10:00 General appearance: Present: no acute distress - EENT Eyes: Present: EOM intact ENT: hearing intact - Neck Neck: Present: supple - Respiratory Respiratory effort: normal - Extremities Extremities: normal temperature - Psychiatric Psychiatric: appropriate mood/affect, cooperative - Neurologic Neurologic: no focal deficits Results - Labs CBC & Chem 7: 08/24/17 07:34 08/24/17 07:34 Labs: Abnormal lab results 08/23/17 08/24/17 08/24/17 Range/Units 21:38 06:44 07:34 RBC 3.16 L (3.65-5.03) M/mm3 Hgb 10.0 L (10.1-14.3) gm/dl Hct 29.9 L (30.3-42.9) % RDW 17.2 H (13.2-15.2) % Lymph % (Auto) 9.4 L (13.4-35.0) % Lee % (Auto) 7.4 H (0.0-7.3) % Lymph # 0.8 L (1.2-5.4) K/mm3 Seg Neutrophils % 79.2 H (40.0-70.0) % Chloride (98-107) mmol/L BUN (7-17) mg/dL Creatinine (0.7-1.2) mg/dL Glucose (65-100) mg/dL POC Glucose 203 H 178 H (70-105) 08/24/17 08/24/17 Range/Units 07:34 12:14 RBC (3.65-5.03) M/mm3 Hgb (10.1-14.3) gm/dl Hct (30.3-42.9) % RDW (13.2-15.2) % Lymph % (Auto) (13.4-35.0) % Lee % (Auto) (0.0-7.3) % Lymph # (1.2-5.4) K/mm3 Seg Neutrophils % (40.0-70.0) % Chloride 97.9 L (98-107) mmol/L BUN 71 H (7-17) mg/dL Creatinine 4.9 H (0.7-1.2) mg/dL Glucose 165 H (65-100) mg/dL POC Glucose 193 H (70-105) Assessment and Plan Insertion of Perma-cath to initiate HD. The pt is right hand dominant. Will check a vein mapping to evaluate for future avf creation. R,B,and A explained to the pt who states understanding and agree to proceed. - Patient Problems (1) ESRD (end stage renal disease) Current Visit: Yes Status: Acute
--- NOTE | 2017-08-24 16:14 | Progress Note ---
Assessment and Plan Assessment and plan: Patient is a 72-year-old Occitan woman who speaks Turkmen with history of hypertension, insulin-dependent diabetes mellitus2, glaucoma, CKD V, GERD, CHF and anemia of chronic disease who presents to the hospital with shortness of breath. pCXR reported as cardiomegaly and pulmonary venous congestion -Acute hypoxic Respiratory failure NIPPV as clinically indicated. Continue supplemental oxygen, nebulizer therapy. -SOB mostly fluid overlaod due to ESRD, changed her mind and wants HD, doesn't want son to know. -Elevated d-dimer, v/w low prob unlikely PE -Accelerated hypertension Monitor bp q shift, continue antihypertensive therpay, IV hydralazine prn, goal systolic overnight betweeen 165-180. -Anemia of CKD Transfuse 2 units PRBCs. Hemoglobin stable. No signs of active bleeding. -Diabetes mellitus type 2 Consistent carbohydrate diet, insulin, accu check -CKD stage V Nephrology following. Patient was previously recommended for hemodialysis but continues to decline treatment. Continue to monitor renal function. -DVT prophylaxis reviewed History Interval history: Patient was seen and examined. Follow-up on current diagnosis. Overnight uneventful. Patient denies any chest pain, shortness breath, nausea/vomiting or severe headaches. Imaging, nursing note, chart, labs and old chart reviewed. Discussed with patient. Hospitalist Physical - Physical exam Narrative exam: GEN: WDWN, NAD, AWAKE, ALERT, ORIENTATED, speaking Turkmen to me says she also speaks Occitan HEENT: NCAT, EOMI, PERRL, OP Clear NECK: supple, no adenopathy, no thyromegaly, no JVD CVS/HEART: RRR, NORMAL S1S2, pulses present bilaterally CHEST/LUNGS: Bibasal crackles diminished breath sounds bilaterally, Symmetrical chest expansion, adequate air entry bilaterally GI/Abdomen: soft, NTND, good bowel sounds, no guarding or rebound /Bladder: no suprapubic tenderness, no CVA or paraspinal tenderness EXT/Skin: no c/c/e, no obvious rash MSK: FROM x 4 Neuro: CN 2-12 grossly intact, no new focal deficits Psych: calm - Constitutional Vitals: Temp Pulse Resp BP Pulse Ox 97.9 F 79 18 184/69 100 08/24/17 12:09 08/24/17 04:51 08/24/17 12:09 08/24/17 12:09 08/24/17 10:00 General appearance: Present: no acute distress Results - Labs CBC & Chem 7: 08/24/17 07:34 08/24/17 07:34 Labs: Laboratory Last Values WBC 8.5 K/mm3 (4.5-11.0) 08/24/17 07:34 RBC 3.16 M/mm3 (3.65-5.03) L 08/24/17 07:34 Hgb 10.0 gm/dl (10.1-14.3) L 08/24/17 07:34 Hct 29.9 % (30.3-42.9) L 08/24/17 07:34 MCV 94 fl (79-97) 08/24/17 07:34 MCH 32 pg (28-32) 08/24/17 07:34 MCHC 34 % (30-34) 08/24/17 07:34 RDW 17.2 % (13.2-15.2) H 08/24/17 07:34 Plt Count 198 K/mm3 (140-440) 08/24/17 07:34 Lymph % (Auto) 9.4 % (13.4-35.0) L 08/24/17 07:34 [place] % (Auto) 7.4 % (0.0-7.3) H 08/24/17 07:34 Eos % (Auto) 3.7 % (0.0-4.3) 08/24/17 07:34 Baso % (Auto) 0.3 % (0.0-1.8) 08/24/17 07:34 Lymph # 0.8 K/mm3 (1.2-5.4) L 08/24/17 07:34 [place] # 0.6 K/mm3 (0.0-0.8) 08/24/17 07:34 Eos # 0.3 K/mm3 (0.0-0.4) 08/24/17 07:34 Baso # 0.0 K/mm3 (0.0-0.1) 08/24/17 07:34 Seg Neutrophils % 79.2 % (40.0-70.0) H 08/24/17 07:34 Seg Neutrophils # 6.7 K/mm3 (1.8-7.7) 08/24/17 07:34 D-Dimer 1867.54 ng/mlDDU (0-234) H 08/19/17 20:34 Sodium 138 mmol/L (137-145) 08/24/17 07:34 Potassium 4.3 mmol/L (3.6-5.0) 08/24/17 07:34 Chloride 97.9 mmol/L (98-107) L 08/24/17 07:34 Carbon Dioxide 24 mmol/L (22-30) 08/24/17 07:34 Anion Gap 20 mmol/L 08/24/17 07:34 BUN 71 mg/dL (7-17) H 08/24/17 07:34 Creatinine 4.9 mg/dL (0.7-1.2) H 08/24/17 07:34 Estimated GFR 9 ml/min 08/24/17 07:34 BUN/Creatinine Ratio 14 % 08/24/17 07:34 Glucose 165 mg/dL (65-100) H 08/24/17 07:34 POC Glucose 193 (70-105) H 08/24/17 12:14 Calcium 8.8 mg/dL (8.4-10.2) 08/24/17 07:34 Phosphorus 5.20 mg/dL (2.5-4.5) H 08/21/17 05:55 Magnesium 2.30 mg/dL (1.7-2.3) 08/21/17 05:55 Troponin T 0.051 ng/mL (0.00-0.029) H 08/19/17 23:14 NT-Pro-B Natriuret Pep > 87164 pg/mL (0-900) H 08/19/17 20:34 Triglycerides 88 mg/dL (2-149) 08/19/17 18:10 Cholesterol 119 mg/dL (50-199) 08/19/17 18:10 LDL Cholesterol Direct 58 mg/dL (50-130) 08/19/17 18:10 HDL Cholesterol 56 mg/dL (40-59) 08/19/17 18:10 Cholesterol/HDL Ratio 2.12 % 08/19/17 18:10 TSH 3.750 mlU/mL (0.270-4.200) 08/19/17 20:49 Free T4 1.44 ng/dL (0.76-1.46) 08/19/17 20:49 Blood Type A POSITIVE 08/21/17 08:13 Antibody Screen Negative 08/21/17 08:13 Crossmatch See Detail 08/21/17 08:13
[2017-08-24] MEDS ORDERED: NACL 0.9 (PRIMING MACHINE ONLY DIALYSIS) MC ONE (16:24)
[2017-08-24] MEDS: HEPARIN IV PRN (16:30)
[2017-08-24 18:39] LABS: Alanine Aminotransferase 8 units/L (7-56); Albumin 2.5 g/dL (3.9-5)
[2017-08-24 18:45] LABS: Bilirubin,Direct < 0.2 mg/dL (0-0.2)
[2017-08-24 18:56] LABS: Hepatitis A Antibody IgM Non-Reactive (NonReactive); Hepatitis B Core IgM Non-Reactive (NonReactive); Hepatitis C Virus Antibody Non-Reactive (NonReactive)
[2017-08-24 19:26] LABS: Hepatitis B Surface Antigen Non-Reactive (Negative)
[2017-08-24] MEDS: LATANOPROST 0.005% OU SCH (21:57)
[2017-08-25] MEDS: HEPARIN SUB-Q SCH ×3 (06:40→22:30)
[2017-08-25] MEDS: LASIX PO SCH ×2 (06:50→19:11)
[2017-08-25 08:37] LABS: Hemoglobin 9.4 gm/dl (10.1-14.3); Mean Corpuscular HGB Conc 34 % (30-34); Mean Corpuscular Hemoglobin 32 pg (28-32); Mean Corpuscular Volume 94 fl (79-97); Platelet Count 188 K/mm3 (140-440); Red Blood Count 2.98 M/mm3 (3.65-5.03); Red Cell Distribution Width 16.3 % (13.2-15.2)
[2017-08-25] MEDS ORDERED: NACL 0.9% 100 ML IV PRN (08:43)
[2017-08-25 08:58] LABS: Calcium 8.6 mg/dL (8.4-10.2)
[2017-08-25] MEDS: PHOSLO PO SCH ×3 (09:30→16:22)
[2017-08-25] MEDS: PROCARDIA XL PO SCH (09:31)
[2017-08-25] MEDS: FEOSOL PO SCH (09:32)
[2017-08-25] MEDS: Renal Caps PO SCH (09:32)
[2017-08-25] MEDS: APRESOLINE PO SCH ×3 (09:33→22:35)
[2017-08-25] MEDS: ROCALTROL PO SCH (09:33)
[2017-08-25] MEDS: CARDURA PO SCH (09:33)
[2017-08-25] MEDS: BABY ASPIRIN PO SCH (09:34)
[2017-08-25] MEDS: COREG PO SCH ×2 (09:34→22:31)
[2017-08-25] MEDS: PROTONIX PO SCH ×2 (09:34→22:31)
[2017-08-25] MEDS: SODIUM CHLORIDE FLUSH SYRINGE 10 ML IV SCH ×2 (09:37→22:00)
[2017-08-25] MEDS: HumaLOG SUB-Q SCH ×4 (09:46→22:00)
--- NOTE | 2017-08-25 10:34 | Progress Note ---
Assessment and Plan 1. ESRD: Advanced CKD has progressed ESRD requiring dialysis. Patient was started on hemodialysis yesterday and tolerated well. Hemodialysis today. HD orders placed. 2. Uncontrolled Hypertension: BP is improving. Continue home meds. Monitor BP. 3. CHF exacerbation: Followed by Cards. 4. Anemia: S/p 2 units of PRBC on 08/21/17. S/p Epogen. 5. Secondary Hyperparathyroidism: Continue Calcitriol. Need outpatient HD chair. Subjective Date of service: 08/25/17 Interval history: Patient is feeling better today. Objective - Vital Signs Vital signs: Vital Signs - 12hr 08/24/17 08/24/17 08/24/17 23:38 23:51 23:58 Temperature 98.3 F Pulse Rate 68 Pulse Rate [ 63 Apical] Respiratory 18 18 Rate Blood Pressure 114/52 O2 Sat by Pulse 99 99 Oximetry 08/25/17 08/25/17 08/25/17 03:03 04:39 09:33 Temperature 98.1 F Pulse Rate 63 71 75 Pulse Rate [ Apical] Respiratory 18 Rate Blood Pressure 163/59 163/63 O2 Sat by Pulse 99 Oximetry 08/25/17 09:34 Temperature Pulse Rate 75 Pulse Rate [ Apical] Respiratory Rate Blood Pressure 163/63 O2 Sat by Pulse Oximetry - General Appearance General appearance: well-developed, well-nourished, appears stated age, other ( no distress, right IJ tunnel catheter) EENT: ATNC, PERRL, hearing intact Neck: supple Respiratory: Present: Clear to Ascultation Cardiology: regular, S1S2, no murmurs Gastrointestinal: normoactive bowel sounds, no tenderness Integumentary: no rash, warm and dry, chronic venous stasis Neurologic: no asterixis, alert and oriented x3, other (bilateral blindness) Musculoskeletal: other (no edema) Psychiatric: cooperative - Lab 08/26/17 06:48 08/26/17 06:48 Most recent lab results Calcium 8.6 mg/dL (8.4-10.2) 08/25/17 08:17 Phosphorus 5.20 mg/dL (2.5-4.5) H 08/21/17 05:55 Magnesium 2.30 mg/dL (1.7-2.3) 08/21/17 05:55
[2017-08-25] MEDS: PROCRIT SUB-Q SCH (12:15)
--- NOTE | 2017-08-25 17:13 | Progress Note ---
Assessment and Plan Assessment and plan: Patient is a 72-year-old Georgian woman who speaks Sierra Leonean with history of hypertension, insulin-dependent diabetes mellitus2, glaucoma, CKD V, GERD, CHF and anemia of chronic disease who presents to the hospital with shortness of breath. pCXR reported as cardiomegaly and pulmonary venous congestion -Acute hypoxic Respiratory failure NIPPV as clinically indicated. Continue supplemental oxygen, nebulizer therapy. -SOB mostly fluid overlaod due to ESRD, changed her mind and wants HD, doesn't want son to know. -Elevated d-dimer, v/w low prob unlikely PE -Accelerated hypertension Monitor bp q shift, continue antihypertensive therpay, IV hydralazine prn, goal systolic overnight betweeen 165-180. -Anemia of CKD Transfuse 2 units PRBCs. Hemoglobin stable. No signs of active bleeding. -Diabetes mellitus type 2 Consistent carbohydrate diet, insulin, accu check -CKD stage V Nephrology following. Patient was previously recommended for hemodialysis but continues to decline treatment. Continue to monitor renal function. -DVT prophylaxis reviewed History Interval history: Patient was seen and examined. Follow-up on current diagnosis. Overnight uneventful. Patient denies any chest pain, shortness breath, nausea/vomiting or severe headaches. Imaging, nursing note, chart, labs and old chart reviewed. Discussed with patient. Hospitalist Physical - Physical exam Narrative exam: GEN: WDWN, NAD, AWAKE, ALERT, ORIENTATED, speaking [place] Leonean to me says she also speaks Georgian HEENT: NCAT, EOMI, PERRL, OP Clear NECK: supple, no adenopathy, no thyromegaly, no JVD CVS/HEART: RRR, NORMAL S1S2, pulses present bilaterally CHEST/LUNGS: Bibasal crackles diminished breath sounds bilaterally, Symmetrical chest expansion, adequate air entry bilaterally GI/Abdomen: soft, NTND, good bowel sounds, no guarding or rebound /Bladder: no suprapubic tenderness, no CVA or paraspinal tenderness EXT/Skin: no c/c/e, no obvious rash MSK: FROM x 4 Neuro: CN 2-12 grossly intact, no new focal deficits Psych: calm - Constitutional Vitals: Temp Pulse Resp BP Pulse Ox 98.6 F 75 18 163/63 97 08/25/17 07:59 08/25/17 09:34 08/25/17 07:59 08/25/17 09:34 08/25/17 10:58 General appearance: Present: no acute distress Results - Labs CBC & Chem 7: 08/25/17 08:17 08/25/17 08:17 Labs: Laboratory Last Values WBC 6.7 K/mm3 (4.5-11.0) 08/25/17 08:17 RBC 2.98 M/mm3 (3.65-5.03) L 08/25/17 08:17 Hgb 9.4 gm/dl (10.1-14.3) L 08/25/17 08:17 Hct 28.0 % (30.3-42.9) L 08/25/17 08:17 MCV 94 fl (79-97) 08/25/17 08:17 MCH 32 pg (28-32) 08/25/17 08:17 MCHC 34 % (30-34) 08/25/17 08:17 RDW 16.3 % (13.2-15.2) H 08/25/17 08:17 Plt Count 188 K/mm3 (140-440) 08/25/17 08:17 Lymph % (Auto) 9.4 % (13.4-35.0) L 08/24/17 07:34 [place] % (Auto) 7.4 % (0.0-7.3) H 08/24/17 07:34 Eos % (Auto) 3.7 % (0.0-4.3) 08/24/17 07:34 Baso % (Auto) 0.3 % (0.0-1.8) 08/24/17 07:34 Lymph # 0.8 K/mm3 (1.2-5.4) L 08/24/17 07:34 [place] # 0.6 K/mm3 (0.0-0.8) 08/24/17 07:34 Eos # 0.3 K/mm3 (0.0-0.4) 08/24/17 07:34 Baso # 0.0 K/mm3 (0.0-0.1) 08/24/17 07:34 Seg Neutrophils % 79.2 % (40.0-70.0) H 08/24/17 07:34 Seg Neutrophils # 6.7 K/mm3 (1.8-7.7) 08/24/17 07:34 D-Dimer 1867.54 ng/mlDDU (0-234) H 08/19/17 20:34 Sodium 138 mmol/L (137-145) 08/25/17 08:17 Potassium 4.5 mmol/L (3.6-5.0) 08/25/17 08:17 Chloride 99.1 mmol/L (98-107) 08/25/17 08:17 Carbon Dioxide 26 mmol/L (22-30) 08/25/17 08:17 Anion Gap 17 mmol/L 08/25/17 08:17 BUN 54 mg/dL (7-17) H 08/25/17 08:17 Creatinine 3.8 mg/dL (0.7-1.2) H 08/25/17 08:17 Estimated GFR 12 ml/min 08/25/17 08:17 BUN/Creatinine Ratio 14 % 08/25/17 08:17 Glucose 208 mg/dL (65-100) H 08/25/17 08:17 POC Glucose 239 (70-105) H 08/25/17 12:27 Calcium 8.6 mg/dL (8.4-10.2) 08/25/17 08:17 Phosphorus 5.20 mg/dL (2.5-4.5) H 08/21/17 05:55 Magnesium 2.30 mg/dL (1.7-2.3) 08/21/17 05:55 Total Bilirubin 0.30 mg/dL (0.1-1.2) 08/24/17 17:39 Direct Bilirubin < 0.2 mg/dL (0-0.2) 08/24/17 17:39 Indirect Bilirubin 0.1 mg/dL 08/24/17 17:39 AST 12 units/L (5-40) 08/24/17 17:39 ALT 8 units/L (7-56) 08/24/17 17:39 Alkaline Phosphatase 58 units/L (35-129) 08/24/17 17:39 Troponin T 0.051 ng/mL (0.00-0.029) H 08/19/17 23:14 NT-Pro-B Natriuret Pep > 05216 pg/mL (0-900) H 08/19/17 20:34 Total Protein 5.1 g/dL (6.3-8.2) L 08/24/17 17:39 Albumin 2.5 g/dL (3.9-5) L 08/24/17 17:39 Albumin/Globulin Ratio 1.0 % 08/24/17 17:39 Triglycerides 88 mg/dL (2-149) 08/19/17 18:10 Cholesterol 119 mg/dL (50-199) 08/19/17 18:10 LDL Cholesterol Direct 58 mg/dL (50-130) 08/19/17 18:10 HDL Cholesterol 56 mg/dL (40-59) 08/19/17 18:10 Cholesterol/HDL Ratio 2.12 % 08/19/17 18:10 TSH 3.750 mlU/mL (0.270-4.200) 08/19/17 20:49 Free T4 1.44 ng/dL (0.76-1.46) 08/19/17 20:49 Hepatitis A IgM Ab Non-reactive (NonReactive) 08/24/17 17:34 Hep Bs Antigen Non-reactive (Negative) 08/24/17 17:34 Hep B Core IgM Ab Non-reactive (NonReactive) 08/24/17 17:34 Hepatitis C Antibody Non-reactive (NonReactive) 08/24/17 17:34 Blood Type A POSITIVE 08/21/17 08:13 Antibody Screen Negative 08/21/17 08:13 Crossmatch See Detail 08/21/17 08:13
[2017-08-25] MEDS: HEPARIN IV PRN (18:30)
[2017-08-25] MEDS: LATANOPROST 0.005% OU SCH (22:00)
[2017-08-26 07:10] LABS: Hematocrit 27.3 % (30.3-42.9); Hemoglobin 9.3 gm/dl (10.1-14.3); Mean Corpuscular HGB Conc 34 % (30-34); Mean Corpuscular Hemoglobin 32 pg (28-32); Mean Corpuscular Volume 94 fl (79-97); Platelet Count 184 K/mm3 (140-440); Red Cell Distribution Width 16.8 % (13.2-15.2)
[2017-08-26 07:28] LABS: Calcium 8.5 mg/dL (8.4-10.2)
[2017-08-26] MEDS: APRESOLINE PO SCH ×2 (08:23→13:46)
[2017-08-26] MEDS: PHOSLO PO SCH ×4 (08:23→18:49)
[2017-08-26] MEDS: HumaLOG SUB-Q SCH ×4 (08:24→23:50)
--- NOTE | 2017-08-26 08:43 | Progress Note ---
Assessment and Plan 1. ESRD: Advanced CKD has progressed ESRD required dialysis. Patient received 2 sessions of hemodialysis and tolerated well. 2. Uncontrolled Hypertension: BP is better. Continue home meds. Monitor BP. 3. CHF exacerbation: Followed by Cards. 4. Anemia: S/p 2 units of PRBC on 08/21/17. S/p Epogen. 5. Secondary Hyperparathyroidism: Continue Calcitriol. Need outpatient HD chair. Subjective Date of service: 09/02/17 Interval history: Patient is feeling better today. Objective - Vital Signs Vital signs: Vital Signs - 12hr 08/25/17 08/26/17 22:31 06:47 Pulse Rate 82 Respiratory 16 Rate - General Appearance General appearance: well-developed, well-nourished, appears stated age, other ( no distress, right IJ tunnel catheter) EENT: ATNC, PERRL, hearing intact Neck: supple Respiratory: Present: Clear to Ascultation Cardiology: regular, S1S2, no murmurs Gastrointestinal: normoactive bowel sounds, no tenderness Integumentary: chronic venous stasis Neurologic: no asterixis, alert and oriented x3, other (bilateral blindness) Musculoskeletal: other (no edema) Psychiatric: cooperative - Lab 08/26/17 06:48 08/26/17 06:48 Most recent lab results Calcium 8.5 mg/dL (8.4-10.2) 08/26/17 06:48 Phosphorus 5.20 mg/dL (2.5-4.5) H 08/21/17 05:55 Magnesium 2.30 mg/dL (1.7-2.3) 08/21/17 05:55
[2017-08-26] MEDS: ROCALTROL PO SCH (09:24)
[2017-08-26] MEDS: PROCARDIA XL PO SCH (09:24)
[2017-08-26] MEDS: CARDURA PO SCH (09:25)
[2017-08-26] MEDS: Renal Caps PO SCH (09:25)
[2017-08-26] MEDS: COREG PO SCH ×2 (09:27→22:38)
[2017-08-26] MEDS: FEOSOL PO SCH (09:28)
[2017-08-26] MEDS: PROTONIX PO SCH ×2 (09:28→22:37)
[2017-08-26] MEDS: BABY ASPIRIN PO SCH (09:28)
[2017-08-26] MEDS: SODIUM CHLORIDE FLUSH SYRINGE 10 ML IV SCH ×2 (09:30→22:43)
[2017-08-26] MEDS: HEPARIN SUB-Q SCH ×3 (13:47→22:51)
--- NOTE | 2017-08-26 15:22 | Progress Note ---
Assessment and Plan Assessment and plan: Patient is a 72-year-old Turkmen woman who speaks Lao with history of hypertension, insulin-dependent diabetes mellitus2, glaucoma, CKD V, GERD, CHF and anemia of chronic disease who presents to the hospital with shortness of breath. pCXR reported as cardiomegaly and pulmonary venous congestion -Acute hypoxic Respiratory failure NIPPV as clinically indicated. Continue supplemental oxygen, nebulizer therapy. -SOB mostly fluid overlaod due to ESRD, changed her mind and wants HD, doesn't want son to know. -Elevated d-dimer, v/w low prob unlikely PE -Accelerated hypertension Monitor bp q shift, continue antihypertensive therpay, IV hydralazine prn, goal systolic overnight betweeen 165-180. -Anemia of CKD Transfuse 2 units PRBCs. Hemoglobin stable. No signs of active bleeding. -Diabetes mellitus type 2 Consistent carbohydrate diet, insulin, accu check -CKD stage V Nephrology following. Patient was previously recommended for hemodialysis but continues to decline treatment. Continue to monitor renal function. -DVT prophylaxis reviewed History Interval history: Patient was seen and examined. Follow-up on current diagnosis. Overnight uneventful. Patient denies any chest pain, shortness breath, nausea/vomiting or severe headaches. Imaging, nursing note, chart, labs and old chart reviewed. Discussed with patient. Hospitalist Physical - Physical exam Narrative exam: GEN: WDWN, NAD, AWAKE, ALERT, ORIENTATED, speaking Lao to me says she also speaks Turkmen HEENT: NCAT, EOMI, PERRL, OP Clear NECK: supple, no adenopathy, no thyromegaly, no JVD CVS/HEART: RRR, NORMAL S1S2, pulses present bilaterally CHEST/LUNGS: Bibasal crackles diminished breath sounds bilaterally, Symmetrical chest expansion, adequate air entry bilaterally GI/Abdomen: soft, NTND, good bowel sounds, no guarding or rebound /Bladder: no suprapubic tenderness, no CVA or paraspinal tenderness EXT/Skin: no c/c/e, no obvious rash MSK: FROM x 4 Neuro: CN 2-12 grossly intact, no new focal deficits Psych: calm - Constitutional Vitals: Temp Pulse Resp BP Pulse Ox 98.8 F 74 16 185/64 95 08/26/17 09:17 08/26/17 09:27 08/26/17 09:17 08/26/17 09:27 08/26/17 09:17 General appearance: Present: no acute distress Results - Labs CBC & Chem 7: 08/26/17 06:48 08/26/17 06:48 Labs: Laboratory Last Values WBC 7.6 K/mm3 (4.5-11.0) 08/26/17 06:48 RBC 2.90 M/mm3 (3.65-5.03) L 08/26/17 06:48 Hgb 9.3 gm/dl (10.1-14.3) L 08/26/17 06:48 Hct 27.3 % (30.3-42.9) L 08/26/17 06:48 MCV 94 fl (79-97) 08/26/17 06:48 MCH 32 pg (28-32) 08/26/17 06:48 MCHC 34 % (30-34) 08/26/17 06:48 RDW 16.8 % (13.2-15.2) H 08/26/17 06:48 Plt Count 184 K/mm3 (140-440) 08/26/17 06:48 Lymph % (Auto) 9.4 % (13.4-35.0) L 08/24/17 07:34 [place] % (Auto) 7.4 % (0.0-7.3) H 08/24/17 07:34 Eos % (Auto) 3.7 % (0.0-4.3) 08/24/17 07:34 Baso % (Auto) 0.3 % (0.0-1.8) 08/24/17 07:34 Lymph # 0.8 K/mm3 (1.2-5.4) L 08/24/17 07:34 [place] # 0.6 K/mm3 (0.0-0.8) 08/24/17 07:34 Eos # 0.3 K/mm3 (0.0-0.4) 08/24/17 07:34 Baso # 0.0 K/mm3 (0.0-0.1) 08/24/17 07:34 Seg Neutrophils % 79.2 % (40.0-70.0) H 08/24/17 07:34 Seg Neutrophils # 6.7 K/mm3 (1.8-7.7) 08/24/17 07:34 D-Dimer 1867.54 ng/mlDDU (0-234) H 08/19/17 20:34 Sodium 138 mmol/L (137-145) 08/26/17 06:48 Potassium 3.8 mmol/L (3.6-5.0) 08/26/17 06:48 Chloride 99.1 mmol/L (98-107) 08/26/17 06:48 Carbon Dioxide 28 mmol/L (22-30) 08/26/17 06:48 Anion Gap 15 mmol/L 08/26/17 06:48 BUN 31 mg/dL (7-17) H 08/26/17 06:48 Creatinine 2.9 mg/dL (0.7-1.2) H 08/26/17 06:48 Estimated GFR 16 ml/min 08/26/17 06:48 BUN/Creatinine Ratio 11 % 08/26/17 06:48 Glucose 209 mg/dL (65-100) H 08/26/17 06:48 POC Glucose 267 (70-105) H 08/26/17 11:42 Calcium 8.5 mg/dL (8.4-10.2) 08/26/17 06:48 Phosphorus 5.20 mg/dL (2.5-4.5) H 08/21/17 05:55 Magnesium 2.30 mg/dL (1.7-2.3) 08/21/17 05:55 Total Bilirubin 0.30 mg/dL (0.1-1.2) 08/24/17 17:39 Direct Bilirubin < 0.2 mg/dL (0-0.2) 08/24/17 17:39 Indirect Bilirubin 0.1 mg/dL 08/24/17 17:39 AST 12 units/L (5-40) 08/24/17 17:39 ALT 8 units/L (7-56) 08/24/17 17:39 Alkaline Phosphatase 58 units/L (35-129) 08/24/17 17:39 Troponin T 0.051 ng/mL (0.00-0.029) H 08/19/17 23:14 NT-Pro-B Natriuret Pep > 50934 pg/mL (0-900) H 08/19/17 20:34 Total Protein 5.1 g/dL (6.3-8.2) L 08/24/17 17:39 Albumin 2.5 g/dL (3.9-5) L 08/24/17 17:39 Albumin/Globulin Ratio 1.0 % 08/24/17 17:39 Triglycerides 88 mg/dL (2-149) 08/19/17 18:10 Cholesterol 119 mg/dL (50-199) 08/19/17 18:10 LDL Cholesterol Direct 58 mg/dL (50-130) 08/19/17 18:10 HDL Cholesterol 56 mg/dL (40-59) 08/19/17 18:10 Cholesterol/HDL Ratio 2.12 % 08/19/17 18:10 TSH 3.750 mlU/mL (0.270-4.200) 08/19/17 20:49 Free T4 1.44 ng/dL (0.76-1.46) 08/19/17 20:49 Hepatitis A IgM Ab Non-reactive (NonReactive) 08/24/17 17:34 Hep Bs Antigen Non-reactive (Negative) 08/24/17 17:34 Hep B Core IgM Ab Non-reactive (NonReactive) 08/24/17 17:34 Hepatitis C Antibody Non-reactive (NonReactive) 08/24/17 17:34 Blood Type A POSITIVE 08/21/17 08:13 Antibody Screen Negative 08/21/17 08:13 Crossmatch See Detail 08/21/17 08:13
[2017-08-26] MEDS: LASIX PO SCH (18:47)
[2017-08-26] MEDS: LATANOPROST 0.005% OU SCH (22:39)
[2017-08-27] MEDS: HEPARIN SUB-Q SCH ×3 (06:43→22:14)
[2017-08-27] MEDS: LASIX PO SCH ×2 (06:43→19:23)
--- NOTE | 2017-08-27 08:11 | Progress Note ---
Assessment and Plan 1. ESRD: Advanced CKD has progressed ESRD required dialysis. Patient received 2 sessions of hemodialysis and tolerated well. HD today. 2. Uncontrolled Hypertension: BP is better. Continue home meds. Monitor BP. 3. CHF exacerbation. 4. Anemia: S/p 2 units of PRBC on 08/21/17. S/p Epogen. 5. Secondary Hyperparathyroidism: Continue Calcitriol. Await outpatient HD chair. Subjective Date of service: 08/27/17 Interval history: Patient is feeling better today. Objective - Vital Signs Vital signs: Vital Signs - 12hr 08/26/17 08/26/17 08/26/17 20:16 22:00 22:38 Temperature 98.7 F Pulse Rate 73 74 Respiratory 20 17 Rate Blood Pressure 153/61 Blood Pressure [Left] Blood Pressure 144/58 [Right] O2 Sat by Pulse 100 Oximetry 08/26/17 08/27/17 23:03 04:30 Temperature 98 F 99.2 F Pulse Rate 76 70 Respiratory 18 21 Rate Blood Pressure Blood Pressure 161/70 [Left] Blood Pressure 153/61 [Right] O2 Sat by Pulse 98 Oximetry - General Appearance General appearance: well-developed, well-nourished, appears stated age, other ( no distress, right IJ tunnel catheter) EENT: ATNC Neck: supple Respiratory: Present: Clear to Ascultation Cardiology: regular, S1S2, no murmurs Gastrointestinal: normoactive bowel sounds, no tenderness Integumentary: chronic venous stasis Neurologic: no asterixis, other (bilateral blindness) Musculoskeletal: other (no edema) Psychiatric: mood/affect appropriate, cooperative - Lab 08/26/17 06:48 08/27/17 11:38 Most recent lab results Calcium 8.5 mg/dL (8.4-10.2) 08/26/17 06:48 Phosphorus 5.20 mg/dL (2.5-4.5) H 08/21/17 05:55 Magnesium 2.30 mg/dL (1.7-2.3) 08/21/17 05:55
[2017-08-27] MEDS ORDERED: NACL 0.9% 100 ML IV PRN (08:46)
[2017-08-27] MEDS: HumaLOG SUB-Q SCH ×4 (09:32→22:14)
[2017-08-27] MEDS: PROTONIX PO SCH ×2 (10:41→22:09)
[2017-08-27] MEDS: PHOSLO PO SCH ×3 (10:41→19:23)
[2017-08-27] MEDS: ROCALTROL PO SCH (10:41)
[2017-08-27] MEDS: FEOSOL PO SCH (10:41)
[2017-08-27] MEDS: Renal Caps PO SCH (10:41)
[2017-08-27] MEDS: BABY ASPIRIN PO SCH (10:42)
[2017-08-27 12:07] LABS: Calcium 9.4 mg/dL (8.4-10.2)
--- NOTE | 2017-08-27 12:13 | Progress Note ---
Assessment and Plan Assessment and plan: Patient is a 72-year-old Icelandic woman who speaks Nauruan with history of hypertension, insulin-dependent diabetes mellitus2, glaucoma, CKD V, GERD, CHF and anemia of chronic disease who presents to the hospital with shortness of breath. pCXR reported as cardiomegaly and pulmonary venous congestion -Acute hypoxic Respiratory failure NIPPV as clinically indicated. Continue supplemental oxygen, nebulizer therapy. -SOB mostly fluid overlaod due to ESRD, changed her mind and wants HD, doesn't want son to know. -Elevated d-dimer, v/w low prob unlikely PE -Accelerated hypertension Monitor bp q shift, continue antihypertensive therpay, IV hydralazine prn, goal systolic overnight betweeen 165-180. -Anemia of CKD Transfuse 2 units PRBCs. Hemoglobin stable. No signs of active bleeding. -Diabetes mellitus type 2 Consistent carbohydrate diet, insulin, accu check -CKD stage V Nephrology following. Patient was previously recommended for hemodialysis but continues to decline treatment. Continue to monitor renal function. -DVT prophylaxis reviewed 08/27/17: new issue is 6 beat run of NSVT, will check bmp and mag level and consulted Cardiology History Interval history: Patient was seen and examined. Follow-up on current diagnosis of volume overload. Overnight uneventful. Patient denies any chest pain, shortness breath, nausea/vomiting or severe headaches. Imaging, nursing note, chart, labs and old chart reviewed. Discussed with patient. Hospitalist Physical - Physical exam Narrative exam: GEN: WDWN, NAD, AWAKE, ALERT, ORIENTATED, speaking Nauruan to me says she also speaks Icelandic HEENT: NCAT, EOMI, PERRL, OP Clear NECK: supple, no adenopathy, no thyromegaly, no JVD CVS/HEART: RRR, NORMAL S1S2, pulses present bilaterally CHEST/LUNGS: Bibasal crackles diminished breath sounds bilaterally, Symmetrical chest expansion, adequate air entry bilaterally GI/Abdomen: soft, NTND, good bowel sounds, no guarding or rebound /Bladder: no suprapubic tenderness, no CVA or paraspinal tenderness EXT/Skin: no c/c/e, no obvious rash MSK: FROM x 4 Neuro: CN 2-12 grossly intact, no new focal deficits Psych: calm - Constitutional Vitals: Temp Pulse Resp BP Pulse Ox 97.9 F 74 20 166/66 94 04//18 07:20 08/27/17 07:20 08/27/17 07:20 08/27/17 07:20 08/27/17 09:56 General appearance: Present: no acute distress Results - Labs CBC & Chem 7: 08/26/17 06:48 08/27/17 11:38 Labs: Laboratory Last Values WBC 7.6 K/mm3 (4.5-11.0) 08/26/17 06:48 RBC 2.90 M/mm3 (3.65-5.03) L 08/26/17 06:48 Hgb 9.3 gm/dl (10.1-14.3) L 08/26/17 06:48 Hct 27.3 % (30.3-42.9) L 08/26/17 06:48 MCV 94 fl (79-97) 08/26/17 06:48 MCH 32 pg (28-32) 08/26/17 06:48 MCHC 34 % (30-34) 08/26/17 06:48 RDW 16.8 % (13.2-15.2) H 08/26/17 06:48 Plt Count 184 K/mm3 (140-440) 08/26/17 06:48 Lymph % (Auto) 9.4 % (13.4-35.0) L 08/24/17 07:34 [place] % (Auto) 7.4 % (0.0-7.3) H 08/24/17 07:34 Eos % (Auto) 3.7 % (0.0-4.3) 08/24/17 07:34 Baso % (Auto) 0.3 % (0.0-1.8) 08/24/17 07:34 Lymph # 0.8 K/mm3 (1.2-5.4) L 08/24/17 07:34 [place] # 0.6 K/mm3 (0.0-0.8) 08/24/17 07:34 Eos # 0.3 K/mm3 (0.0-0.4) 08/24/17 07:34 Baso # 0.0 K/mm3 (0.0-0.1) 08/24/17 07:34 Seg Neutrophils % 79.2 % (40.0-70.0) H 08/24/17 07:34 Seg Neutrophils # 6.7 K/mm3 (1.8-7.7) 08/24/17 07:34 D-Dimer 1867.54 ng/mlDDU (0-234) H 08/19/17 20:34 Sodium 137 mmol/L (137-145) 08/27/17 11:38 Potassium 4.0 mmol/L (3.6-5.0) 08/27/17 11:38 Chloride 96.3 mmol/L (98-107) L 08/27/17 11:38 Carbon Dioxide 28 mmol/L (22-30) 08/27/17 11:38 Anion Gap 17 mmol/L 08/27/17 11:38 BUN 39 mg/dL (7-17) H 08/27/17 11:38 Creatinine 3.5 mg/dL (0.7-1.2) H 08/27/17 11:38 Estimated GFR 13 ml/min 08/27/17 11:38 BUN/Creatinine Ratio 11 % 08/27/17 11:38 Glucose 273 mg/dL (65-100) H 08/27/17 11:38 POC Glucose 160 (70-105) H 08/27/17 06:36 Calcium 9.4 mg/dL (8.4-10.2) 08/27/17 11:38 Phosphorus 5.20 mg/dL (2.5-4.5) H 08/21/17 05:55 Magnesium 1.80 mg/dL (1.7-2.3) 08/27/17 11:38 Total Bilirubin 0.30 mg/dL (0.1-1.2) 08/24/17 17:39 Direct Bilirubin < 0.2 mg/dL (0-0.2) 08/24/17 17:39 Indirect Bilirubin 0.1 mg/dL 08/24/17 17:39 AST 12 units/L (5-40) 08/24/17 17:39 ALT 8 units/L (7-56) 08/24/17 17:39 Alkaline Phosphatase 58 units/L (35-129) 08/24/17 17:39 Troponin T 0.051 ng/mL (0.00-0.029) H 08/19/17 23:14 NT-Pro-B Natriuret Pep > 24183 pg/mL (0-900) H 08/19/17 20:34 Total Protein 5.1 g/dL (6.3-8.2) L 08/24/17 17:39 Albumin 2.5 g/dL (3.9-5) L 08/24/17 17:39 Albumin/Globulin Ratio 1.0 % 08/24/17 17:39 Triglycerides 88 mg/dL (2-149) 08/19/17 18:10 Cholesterol 119 mg/dL (50-199) 08/19/17 18:10 LDL Cholesterol Direct 58 mg/dL (50-130) 08/19/17 18:10 HDL Cholesterol 56 mg/dL (40-59) 08/19/17 18:10 Cholesterol/HDL Ratio 2.12 % 08/19/17 18:10 TSH 3.750 mlU/mL (0.270-4.200) 08/19/17 20:49 Free T4 1.44 ng/dL (0.76-1.46) 08/19/17 20:49 Hepatitis A IgM Ab Non-reactive (NonReactive) 08/24/17 17:34 Hep Bs Antigen Non-reactive (Negative) 08/24/17 17:34 Hep B Core IgM Ab Non-reactive (NonReactive) 08/24/17 17:34 Hepatitis C Antibody Non-reactive (NonReactive) 08/24/17 17:34 Blood Type A POSITIVE 08/21/17 08:13 Antibody Screen Negative 08/21/17 08:13 Crossmatch See Detail 08/21/17 08:13
[2017-08-27] MEDS: APRESOLINE PO SCH ×4 (12:39→21:00)
[2017-08-27] MEDS ORDERED: NACL 0.9 (PRIMING MACHINE ONLY DIALYSIS) MC ONE (16:14)
[2017-08-27] MEDS: HEPARIN IV PRN (17:23)
[2017-08-27] MEDS: PROCRIT SUB-Q SCH (17:24)
[2017-08-27] MEDS: PROCARDIA XL PO SCH (19:17)
[2017-08-27] MEDS: CARDURA PO SCH (19:17)
[2017-08-27] MEDS: COREG PO SCH ×2 (19:18→22:09)
[2017-08-27] MEDS: LATANOPROST 0.005% OU SCH (22:10)
[2017-08-27] MEDS: SODIUM CHLORIDE FLUSH SYRINGE 10 ML IV SCH (23:00)
[2017-08-28] MEDS: APRESOLINE PO SCH ×4 (01:01→21:00)
[2017-08-28] MEDS: SODIUM CHLORIDE FLUSH SYRINGE 10 ML IV SCH ×3 (01:01→22:02)
[2017-08-28] MEDS: LASIX PO SCH ×3 (05:35→18:38)
[2017-08-28] MEDS: HEPARIN SUB-Q SCH ×3 (05:35→22:02)
--- NOTE | 2017-08-28 09:05 | Progress Note ---
Assessment and Plan 1. ESRD: Advanced CKD has progressed ESRD required dialysis. Patient was last dialyzed yesterday. HD tomorrow. 2. Uncontrolled Hypertension: BP is better. Continue home meds. Monitor BP. 3. CHF exacerbation. 4. Anemia: S/p 2 units of PRBC on 08/21/17. Epogen. 5. Secondary Hyperparathyroidism: Continue Calcitriol. Await outpatient HD chair. Subjective Date of service: 08/28/17 Interval history: Patient is doing ok today. Objective - Vital Signs Vital signs: Vital Signs - 12hr 08/27/17 08/27/17 08/27/17 22:00 22:09 23:09 Temperature Pulse Rate 73 Pulse Rate [ 73 Right Radial] Respiratory 16 Rate Blood Pressure 179/67 Blood Pressure [Left] O2 Sat by Pulse 98 98 Oximetry 08/28/17 08/28/17 04:00 08:00 Temperature 99.2 F 98.9 F Pulse Rate 71 71 Pulse Rate [ Right Radial] Respiratory 18 20 Rate Blood Pressure Blood Pressure 171/71 167/68 [Left] O2 Sat by Pulse 98 97 Oximetry - General Appearance General appearance: well-developed, well-nourished, appears stated age, other ( no distress, right IJ tunnel catheter) EENT: ATNC Neck: supple Respiratory: Present: Clear to Ascultation Cardiology: regular, S1S2, no murmurs Gastrointestinal: normoactive bowel sounds, no tenderness Integumentary: warm and dry, chronic venous stasis Neurologic: no asterixis, other (bilateral blindness) Musculoskeletal: other (no edema) Psychiatric: mood/affect appropriate, cooperative - Lab 08/26/17 06:48 08/27/17 11:38 Most recent lab results Calcium 9.4 mg/dL (8.4-10.2) 08/27/17 11:38 Phosphorus 5.20 mg/dL (2.5-4.5) H 08/21/17 05:55 Magnesium 1.80 mg/dL (1.7-2.3) 08/27/17 11:38
[2017-08-28] MEDS: PHOSLO PO SCH ×3 (09:47→18:39)
[2017-08-28] MEDS: ROCALTROL PO SCH (09:47)
[2017-08-28] MEDS: BABY ASPIRIN PO SCH (09:47)
[2017-08-28] MEDS: Renal Caps PO SCH (09:48)
[2017-08-28] MEDS: PROTONIX PO SCH ×2 (09:48→21:59)
[2017-08-28] MEDS: FEOSOL PO SCH (09:48)
[2017-08-28] MEDS: COREG PO SCH ×2 (09:48→22:01)
[2017-08-28] MEDS: PROCARDIA XL PO SCH (09:49)
[2017-08-28] MEDS: CARDURA PO SCH (09:49)
[2017-08-28] MEDS: HumaLOG SUB-Q SCH ×4 (09:50→22:44)
--- NOTE | 2017-08-28 11:16 | Progress Note ---
Assessment and Plan Assessment and plan: Acute combined systolic and diastolic heart failure decompensation Cardiology recommends continue medical management. Cont. Strict I/O, daily weight and monitor uop q shift. Cont. IV diuresis with Lasix, supplemental oxygen, low sodium diet. Follow-up serial chest x-ray Echocardiogram 03/2017 revealed moderate to severe concentric left ventricular hypertrophy with EF 45-50%. The left ventricular systolic function was mildly decreased. Moderate to severe mitral regurgitation and evidence of moderate pulmonary hypertension. Normal stress thallium test 10/2016 at [facility]. NSVT Patient with 6 beat run. Cardiology follow-up. Elevated d-dimer VQ scan negative Accelerated hypertension Monitor bp q shift, continue antihypertensive therpay, IV hydralazine prn, goal systolic overnight betweeen 165-180. Anemia of CKD s/p Transfusion of 2 units PRBCs 08/21. Cont. Epogen. No signs of active bleeding. Diabetes Consistent carbohydrate diet, insulin, accu check ESRD Advanced CKD which has progressed ESRD requiring dialysis. Nephrology following. Acute hypoxic Respiratory failure NIPPV as clinically indicated. Continue supplemental oxygen, nebulizer therapy. DVT prophylaxis Disposition. Await hemodialysis outpatient. History Interval history: No new issues overnight. Patient still complains of shortness of breath this morning. Hospitalist Physical - Constitutional Vitals: Temp Pulse Resp BP Pulse Ox 98.9 F 71 20 167/68 97 08/28/17 08:00 08/28/17 09:49 08/28/17 08:00 08/28/17 09:49 08/28/17 08:00 General appearance: Present: no acute distress - EENT Eyes: Present: PERRL, EOM intact ENT: hearing intact, clear oral mucosa, dentition normal - Neck Neck: Present: supple, normal ROM - Respiratory Respiratory effort: normal Respiratory: bilateral: CTA - Cardiovascular Rhythm: regular Heart Sounds: Present: S1 & S2. Absent: gallop, rub - Extremities Extremities: no ischemia, No edema, Full ROM - Abdominal General gastrointestinal: soft, non-tender, non-distended, normal bowel sounds - Integumentary Integumentary: Present: clear, warm, dry - Neurologic Neurologic: CNII-XII intact, moves all extremities Results - Labs CBC & Chem 7: 08/26/17 06:48 08/27/17 11:38 Labs: Laboratory Last Values WBC 7.6 K/mm3 (4.5-11.0) 08/26/17 06:48 RBC 2.90 M/mm3 (3.65-5.03) L 08/26/17 06:48 Hgb 9.3 gm/dl (10.1-14.3) L 08/26/17 06:48 Hct 27.3 % (30.3-42.9) L 08/26/17 06:48 MCV 94 fl (79-97) 08/26/17 06:48 MCH 32 pg (28-32) 08/26/17 06:48 MCHC 34 % (30-34) 08/26/17 06:48 RDW 16.8 % (13.2-15.2) H 08/26/17 06:48 Plt Count 184 K/mm3 (140-440) 08/26/17 06:48 Lymph % (Auto) 9.4 % (13.4-35.0) L 08/24/17 07:34 [place] % (Auto) 7.4 % (0.0-7.3) H 08/24/17 07:34 Eos % (Auto) 3.7 % (0.0-4.3) 08/24/17 07:34 Baso % (Auto) 0.3 % (0.0-1.8) 08/24/17 07:34 Lymph # 0.8 K/mm3 (1.2-5.4) L 08/24/17 07:34 [place] # 0.6 K/mm3 (0.0-0.8) 08/24/17 07:34 Eos # 0.3 K/mm3 (0.0-0.4) 08/24/17 07:34 Baso # 0.0 K/mm3 (0.0-0.1) 08/24/17 07:34 Seg Neutrophils % 79.2 % (40.0-70.0) H 08/24/17 07:34 Seg Neutrophils # 6.7 K/mm3 (1.8-7.7) 08/24/17 07:34 D-Dimer 1867.54 ng/mlDDU (0-234) H 08/19/17 20:34 Sodium 137 mmol/L (137-145) 08/27/17 11:38 Potassium 4.0 mmol/L (3.6-5.0) 08/27/17 11:38 Chloride 96.3 mmol/L (98-107) L 08/27/17 11:38 Carbon Dioxide 28 mmol/L (22-30) 08/27/17 11:38 Anion Gap 17 mmol/L 08/27/17 11:38 BUN 39 mg/dL (7-17) H 08/27/17 11:38 Creatinine 3.5 mg/dL (0.7-1.2) H 08/27/17 11:38 Estimated GFR 13 ml/min 08/27/17 11:38 BUN/Creatinine Ratio 11 % 08/27/17 11:38 Glucose 273 mg/dL (65-100) H 08/27/17 11:38 POC Glucose 131 (70-105) H 08/28/17 09:35 Calcium 9.4 mg/dL (8.4-10.2) 08/27/17 11:38 Phosphorus 5.20 mg/dL (2.5-4.5) H 08/21/17 05:55 Magnesium 1.80 mg/dL (1.7-2.3) 08/27/17 11:38 Total Bilirubin 0.30 mg/dL (0.1-1.2) 08/24/17 17:39 Direct Bilirubin < 0.2 mg/dL (0-0.2) 08/24/17 17:39 Indirect Bilirubin 0.1 mg/dL 08/24/17 17:39 AST 12 units/L (5-40) 08/24/17 17:39 ALT 8 units/L (7-56) 08/24/17 17:39 Alkaline Phosphatase 58 units/L (35-129) 08/24/17 17:39 Troponin T 0.051 ng/mL (0.00-0.029) H 08/19/17 23:14 NT-Pro-B Natriuret Pep > 27227 pg/mL (0-900) H 08/19/17 20:34 Total Protein 5.1 g/dL (6.3-8.2) L 08/24/17 17:39 Albumin 2.5 g/dL (3.9-5) L 08/24/17 17:39 Albumin/Globulin Ratio 1.0 % 08/24/17 17:39 Triglycerides 88 mg/dL (2-149) 08/19/17 18:10 Cholesterol 119 mg/dL (50-199) 08/19/17 18:10 LDL Cholesterol Direct 58 mg/dL (50-130) 08/19/17 18:10 HDL Cholesterol 56 mg/dL (40-59) 08/19/17 18:10 Cholesterol/HDL Ratio 2.12 % 08/19/17 18:10 TSH 3.750 mlU/mL (0.270-4.200) 08/19/17 20:49 Free T4 1.44 ng/dL (0.76-1.46) 08/19/17 20:49 Hepatitis A IgM Ab Non-reactive (NonReactive) 08/24/17 17:34 Hep Bs Antigen Non-reactive (Negative) 08/24/17 17:34 Hep B Core IgM Ab Non-reactive (NonReactive) 08/24/17 17:34 Hepatitis C Antibody Non-reactive (NonReactive) 08/24/17 17:34 Blood Type A POSITIVE 08/21/17 08:13 Antibody Screen Negative 08/21/17 08:13 Crossmatch See Detail 08/21/17 08:13
[2017-08-28] MEDS ORDERED: CITRATE OF MAGNESIA PO ONE (15:21)
--- NOTE | 2017-08-28 18:02 | Progress Note ---
Assessment and Plan Pt s/p RIJ PC for HD access. Asked to eval for AVF during this admission if possible. Our OR schedule is limited over the next few days. Will review our schedule to see when the next available surgical date would be. Review of preliminary vein mapping would suggest bilat basilic veins may be adequate for avf creation. - Patient Problems (1) ESRD (end stage renal disease) Current Visit: Yes Status: Acute Subjective Date of service: 08/28/17 Interval history: Pt awake. She denies complaint at present. Objective - Constitutional Vitals: Vital Signs - 12hr 08/28/17 08/28/17 08/28/17 08:00 09:48 09:49 Temperature 98.9 F Pulse Rate 71 71 71 Respiratory 20 Rate Blood Pressure 167/68 167/68 Blood Pressure 167/68 [Left] O2 Sat by Pulse 97 Oximetry 08/28/17 08/28/17 08/28/17 10:00 15:43 15:45 Temperature 98.3 F Pulse Rate 64 Respiratory 20 Rate Blood Pressure 137/59 Blood Pressure 137/59 [Left] O2 Sat by Pulse 96 97 97 Oximetry General appearance: Present: no acute distress - EENT Eyes: EOM intact ENT: hearing intact - Neck Neck: supple (RIJ PC in place) - Respiratory Respiratory effort: normal Extremities: no ischemia - Neurologic Neurologic: no focal deficits - Psychiatric Psychiatric: appropriate mood/affect, cooperative - Labs CBC & Chem 7: 08/26/17 06:48 08/27/17 11:38 Labs: Abnormal lab results 08/27/17 08/27/17 08/28/17 Range/Units 19:19 21:52 09:35 POC Glucose 320 H 239 H 131 H (70-105) 08/28/17 08/28/17 Range/Units 11:38 16:08 POC Glucose 272 H 284 H (70-105)
[2017-08-28] MEDS: SENOKOT PO SCH (18:38)
[2017-08-28] MEDS ORDERED: NACL 0.9% 100 ML IV PRN (19:38)
[2017-08-28] MEDS: LATANOPROST 0.005% OU SCH (22:06)
[2017-08-29] MEDS: SENOKOT PO SCH (05:00)
[2017-08-29] MEDS: HEPARIN SUB-Q SCH ×2 (05:23→14:00)
[2017-08-29] MEDS: LASIX PO SCH (05:24)
[2017-08-29] MEDS: APRESOLINE IV PRN (06:10)
--- NOTE | 2017-08-29 06:45 | Progress Note ---
Assessment and Plan 1. ESRD: Advanced CKD has progressed to ESRD required dialysis. Continue hemodialysis three times a week. 2. Uncontrolled Hypertension: BP is better. Continue home meds. Monitor BP. 3. CHF exacerbation. 4. Anemia: S/p 2 units of PRBC on 08/21/17. Epogen. 5. Secondary Hyperparathyroidism: Continue Calcitriol. Outpatient HD chair at [facility]. Patient is scheduled to get AVF on 09/04/17. Subjective Date of service: 08/29/17 Interval history: Patient is doing ok. Objective - Vital Signs Vital signs: Vital Signs - 12hr 08/28/17 08/28/17 08/28/17 20:44 21:06 22:00 Temperature 98.2 F Pulse Rate 67 Pulse Rate [ 63 Left Radial] Respiratory 20 16 Rate Blood Pressure 137/55 O2 Sat by Pulse 98 97 97 Oximetry 08/28/17 08/28/17 08/29/17 22:01 23:47 04:55 Temperature 98.1 F 98.0 F Pulse Rate 63 66 71 Pulse Rate [ Left Radial] Respiratory 20 20 Rate Blood Pressure 146/58 166/60 202/75 O2 Sat by Pulse 98 98 Oximetry 08/29/17 06:10 Temperature Pulse Rate 71 Pulse Rate [ Left Radial] Respiratory Rate Blood Pressure 201/86 O2 Sat by Pulse Oximetry - General Appearance General appearance: well-developed, well-nourished, appears stated age, other ( no distress, right IJ tunnel catheter) EENT: ATNC Neck: supple Respiratory: Present: Clear to Ascultation Cardiology: regular, S1S2, no murmurs Gastrointestinal: normoactive bowel sounds, no tenderness Integumentary: chronic venous stasis Neurologic: no asterixis, other (blindness bilaterally) Musculoskeletal: other (no edema) Psychiatric: mood/affect appropriate, cooperative - Lab 08/26/17 06:48 08/27/17 11:38 Most recent lab results Calcium 9.4 mg/dL (8.4-10.2) 08/27/17 11:38 Phosphorus 5.20 mg/dL (2.5-4.5) H 08/21/17 05:55 Magnesium 1.80 mg/dL (1.7-2.3) 08/27/17 11:38
--- NOTE | 2017-08-29 09:03 | Discharge Summary ---
Providers - Providers Date of Admission: 08/19/17 20:18 Date of discharge: 08/29/17 Attending physician: WILDER GRACIA 08/19/17 20:17 Consult to Physician [CONS] Routine Comment: Consulting Provider: BARRY ESPINO Physician Instructions: Reason For Exam: ckd 5 08/20/17 08:18 Consult to Wound/ET Nurse [CONS] Routine Reason For Exam: wound eval left toes 08/22/17 09:06 Physical Therapy Evaluation and Treat [CONS] Routine Comment: Reason For Exam: Deconditioning Referring MD: BARRY ESPINO 08/24/17 08:57 Consult to Physician [CONS] Routine Comment: Consulting Provider: VONNIE COPPOLA Physician Instructions: Reason For Exam: Hemodialysis catheter placement. 08/27/17 12:10 Consult to Physician [CONS] Routine Comment: Consulting Provider: HAMZAH DAVISON Physician Instructions: Reason For Exam: NSVT, pt known to your group Primary care physician: ARIELLE GOMEZ Hospitalization Reason for admission: dyspnea Condition: Stable Hospital course: Patient is a 72-year-old [place] woman who speaks Turkmen with history of hypertension, insulin-dependent diabetes mellitus2, glaucoma, CKD V, GERD, CHF and anemia of chronic disease who presented to the hospital with shortness of breath. Initial chest x-ray reported as cardiomegaly and pulmonary venous congestion. Patient was admitted with diagnosis of acute hypoxic respiratory failure secondary to fluid overload from ESRD. Patient did have an elevated d- dimer however VQ scan was low probability. Patient was treated with supplemental oxygen, nebulizer therapy and BiPAP as clinically indicated. Patient had previously in the past refused hemodialysis. On this admission, however, patient was receptive after much discussion and underwent vascular surgery consultation and hemodialysis access was arranged. Patient had a right internal jugular hemodialysis catheter placed. Other, cases during hospital stay included accelerated hypertension which was treated with appropriate antihypertensive medications and anemia CK D requiring transfusion of 2 units of PRBCs. The patient was also seen by cardiology in consultation for management of acute on chronic CHF with preserved ejection fraction. The recurrent volume overload was multifactorial related to the CHF, hypertension, anemia and chronic kidney disease. The volume overload stabilized with hemodialysis and patient was felt to have received maximal hospital benefit for discharge. Case management was consulted for arrangements for outpatient hemodialysis. Dedicated discharge time 32 minutes. Disposition: - TO HOME OR SELFCARE Time spent for discharge: 32 Core Measure Documentation - Palliative Care Palliative Care/ Comfort Measures: Not Applicable - Core Measures Any of the following diagnoses?: none - Heart Failure Discharge Requirements ALESSIA/ARB for LVSD if EF <40%: No Reason for no ALESSIA/ARB: Renal impairment Beta karoline at discharge: Yes Exam - Constitutional Vitals: Temp Pulse Resp BP Pulse Ox 98.7 F 72 20 195/62 97 08/29/17 08:42 08/29/17 08:42 08/29/17 08:42 08/29/17 08:42 08/29/17 08:42 General appearance: Present: no acute distress, well-nourished - EENT Eyes: Present: PERRL ENT: hearing intact, clear oral mucosa - Neck Neck: Present: supple, normal ROM - Respiratory Respiratory effort: normal Respiratory: bilateral: CTA - Cardiovascular Heart Sounds: Present: S1 & S2. Absent: rub, click - Extremities Extremities: pulses symmetrical, No edema Peripheral Pulses: within normal limits - Abdominal General gastrointestinal: Present: soft, non-tender, non-distended, normal bowel sounds Female genitourinary: Present: normal - Integumentary Integumentary: Present: clear, warm, dry - Musculoskeletal Musculoskeletal: gait normal, strength equal bilaterally - Psychiatric Psychiatric: appropriate mood/affect, intact judgment & insight - Neurologic Neurologic: CNII-XII intact, moves all extremities Plan Activity: no restrictions Weight Bearing Status: Weight Bear as Tolerated Diet: renal Additional Instructions: f/u with Vascular for permanent HD access Follow up with: ARIELLE GOMEZ MD [Primary Care Provider] - 7 Days DB GALARZA MD [Staff Physician] - 7 Days HAMZAH DAVISON MD [Staff Physician] - 7 Days BARRY ESPINO MD [Staff Physician] - 7 Days Prescriptions: AtorvaSTATin [Lipitor] 40 mg PO QHS #30 tablet Calcitriol [Rocaltrol] 0.25 mcg PO QDAY #30 capsule Calcium Acetate [Phoslo] 667 mg PO TIDWM #90 capsule Carvedilol [Coreg] 12.5 mg PO BID #60 tablet Doxazosin [Cardura] 2 mg PO QDAY #30 tablet Epoetin Sivakumar 10,000 Unit [Procrit] 10,000 unit SUB-Q ONCE #30 vial Ferrous Sulfate [Feosol 325 MG tab] 325 mg PO QDAY #30 tablet Folic Acid/Vit B Comp W-C [Renal Caps] 1 cap PO QDAY #30 capsule hydrALAZINE [Apresoline TAB] 100 mg PO TID #90 tab NIFEdipine XL [Procardia Xl] 90 mg PO QDAY #30 tablet Pantoprazole [Protonix TAB] 40 mg PO BID #14 tablet
[2017-08-29] MEDS: HumaLOG SUB-Q SCH ×2 (09:14→12:36)
[2017-08-29] MEDS: Renal Caps PO SCH (09:15)
[2017-08-29] MEDS: ROCALTROL PO SCH (09:16)
[2017-08-29] MEDS: FEOSOL PO SCH (09:16)
[2017-08-29] MEDS: PROTONIX PO SCH (09:16)
[2017-08-29] MEDS: PHOSLO PO SCH ×2 (09:16→12:36)
[2017-08-29] MEDS: BABY ASPIRIN PO SCH (09:17)
[2017-08-29] MEDS: SODIUM CHLORIDE FLUSH SYRINGE 10 ML IV SCH (10:00)
[2017-08-29] MEDS: CARDURA PO SCH (15:03)
[2017-08-29] MEDS: APRESOLINE PO SCH ×2 (15:05→15:06)
[2017-08-29] MEDS: COREG PO SCH (15:06)
[2017-08-29] MEDS: PROCARDIA XL PO SCH (15:06)
[2017-08-29 15:10] VITALS: BP 150/68
[2017-08-29] MEDS ORDERED: NACL 0.9 (PRIMING MACHINE ONLY DIALYSIS) MC ONE (15:15)
--- NOTE | 2017-08-29 16:32 | Event Note ---
Date: 08/29/17 D/c planning in progress. Likely for later today. Her HD days will be on ,W,F Will schedule her for AVF creation on Sunday09/04/17 (arrival time, 8am).
--- NOTE | 2017-08-29 18:11 | Vascular Lab Report ---
Upper extremity vein mapping Reason for exam: Preoperative evaluation for hemodialysis access Comments: On the right, the cephalic vein is too small to use throughout. The basilic vein is of reasonable caliber but appears to become deep in the midportion of the upper arm. The brachial and radial arteries are patent. The radial artery is small. On the left, the cephalic vein is too small to use throughout. The basilic vein is larger than the cephalic vein but less than 4 mm in the upper arm. The brachial and radial arteries are patent. The radial artery is small. Impression: Both cephalic veins are not suitable for use as AV access sites. The right basilic vein appears to be of adequate caliber but short in length in the upper arm. The left basilic vein appears to be potentially usable as an AV fistula. The radial arteries are small bilaterally.
== END 2017-08-29 16:05 | disposition home or self-care (01) | DRG 673 ==
LOC: ED 17:26 → 4A 20:18 → 3A 08-26 22:08
PROVIDERS: ADMIT Internal Medicine; ATTEND Hospitalist
PROC: 30233N1 Transfusion of Nonautologous Red Blood Cells into Peripheral Vein, Percutaneous Approach (ICD-10-PCS; 2017-08-21)
PROC: 02H633Z Insertion of Infusion Device into Right Atrium, Percutaneous Approach (ICD-10-PCS; principal; 2017-08-24)
PROC: 0JH63XZ Insertion of Tunneled Vascular Access Device into Chest Subcutaneous Tissue and Fascia, Percutaneous Approach (ICD-10-PCS; principal; 2017-08-24)
PROC: B244ZZZ Ultrasonography of Right Heart (ICD-10-PCS; 2017-08-24)
PROC: 5A1D70Z Performance of Urinary Filtration, Intermittent, Less than 6 Hours Per Day (ICD-10-PCS; 2017-08-24)
PROC: 5A1D70Z Performance of Urinary Filtration, Intermittent, Less than 6 Hours Per Day (ICD-10-PCS; 2017-08-25)
PROC: 5A1D70Z Performance of Urinary Filtration, Intermittent, Less than 6 Hours Per Day (ICD-10-PCS; 2017-08-27)
PROC: 5A1D70Z Performance of Urinary Filtration, Intermittent, Less than 6 Hours Per Day (ICD-10-PCS; 2017-08-29)
DX: N17.0 Acute kidney failure with tubular necrosis (principal); J96.01 Acute respiratory failure with hypoxia; I50.43 Acute on chronic combined systolic (congestive) and diastolic (congestive) heart failure; I13.2 Hypertensive heart and chronic kidney disease with heart failure and with stage 5 chronic kidney disease, or end stage renal disease; I16.1 Hypertensive emergency; I47.1 Supraventricular tachycardia; N18.6 End stage renal disease; N25.81 Secondary hyperparathyroidism of renal origin; E11.22 Type 2 diabetes mellitus with diabetic chronic kidney disease; D63.1 Anemia in chronic kidney disease; K21.9 Gastro-esophageal reflux disease without esophagitis; Z79.4 Long term (current) use of insulin; Z90.49 Acquired absence of other specified parts of digestive tract; Z79.899 Other long term (current) drug therapy; Z82.49 Family history of ischemic heart disease and other diseases of the circulatory system; Z83.3 Family history of diabetes mellitus
CPT/HCPCS: 36415; 36558; 71045; 77001; 78582; 80048; 80061; 80074; 82962; 83735; 83880; 84100; 84439; 84443; 84484; 85025; 85027; 85379; 86850; 86900; 86901; 86920; 93005; 93010; 94640; 94760; A9270-GY; A9540; A9558; C1750; G8978-GP; G8979-GP; J0360; J0690; J0885; J1644; J1815; J1940; J2250; J2405; J3010; J7030; J7050; P9016

== ENCOUNTER 2017-11-16 16:37 | Inpatient (IN) | payer MEDICARE, OTHER ==
[2017-11-16] MEDS ORDERED: NACL 0.9% 1000 ML IV ONE (17:45)
--- NOTE | 2017-11-16 17:54 | Emergency Department Report ---
ED General Adult HPI - General Chief complaint: Medical Clearance Stated complaint: DRAINAGE FROM PORT Time Seen by Provider: 11/16/17 17:44 Source: RN/MD, EMS Mode of arrival: Stretcher Limitations: No Limitations - History of Present Illness Initial comments: Drainage from her vas cath site she was at her dialysis center. A blood culture gave her vancomycin and culture the Center TT for possible overall her vas cath they're worried about an infection she has no other complaints. She is awake and alert eating a meal tray when I enter the room, no distress, case d /w dr rashid who d/w dr grimes who is rec admit and will remove cath in am, and dr mancera aware. -: days(s), unknown Radiation: non-radiation Improves with: none Worsens with: none - Related Data Previous Rx's Medication Instructions Recorded Last Taken Type NovoLIN 70/30 6 units SQ Q12HR #1 vial 05/30/17 2 Days Ago Rx ~08/18/17 Aspirin [Aspirin BABY CHEW TAB] 81 mg PO QDAY #30 tab.chew 07/17/17 09/10/17 09: 00 Rx Latanoprost 0.005% 1 drops OU QHS #1 bottle 07/17/17 11/12/17 20:00 Rx AtorvaSTATin [Lipitor] 40 mg PO QHS #30 tablet 08/29/17 09/10/17 20:00 Rx Calcitriol [Rocaltrol] 0.25 mcg PO QDAY #30 capsule 08/29/17 09/10/17 09:00 Rx Calcium Acetate [Phoslo] 667 mg PO TIDWM #90 capsule 08/29/17 09/10/17 17:00 Rx Carvedilol [Coreg] 12.5 mg PO BID #60 tablet 08/29/17 09/10/17 20:00 Rx Doxazosin [Cardura] 2 mg PO QDAY #30 tablet 08/29/17 09/10/17 09:00 Rx Epoetin Sivakumar 10,000 Unit [Procrit] 10,000 unit SUB-Q ONCE #30 vial 08/29/17 Unknown Rx Ferrous Sulfate [Feosol 325 MG tab] 325 mg PO QDAY #30 tablet 08/29/17 09/10/17 20:00 Rx Folic Acid/Vit B Comp W-C [Renal 1 cap PO QDAY #30 capsule 08/29/17 09/10/17 20: 00 Rx Caps] Furosemide [Lasix TAB] 80 mg PO 0600,1800 tablet 08/29/17 09/10/17 18:00 Rx Lispro Insulin [Humalog] 0 unit SUB-Q ACHS units 08/29/17 Unknown Rx NIFEdipine XL [Procardia Xl] 90 mg PO QDAY #30 tablet 08/29/17 09/10/17 09:00 Rx Pantoprazole [Protonix TAB] 40 mg PO BID #14 tablet 08/29/17 09/10/17 17:00 Rx hydrALAZINE [Apresoline TAB] 100 mg PO TID #90 tab 08/29/17 11/12/17 10:00 Rx HYDROcodone/APAP 7.5-325 [[place] 1 each PO Q6HR PRN #40 tablet 09/11/17 Unknown Rx 7.5/325] Allergies Allergy/AdvReac Type Severity Reaction Status Date / Time No Known Allergies Allergy Unverified 11/16/17 17:34 ED Review of Systems ROS: Stated complaint: DRAINAGE FROM PORT Other details as noted in HPI Comment: All other systems reviewed and negative Constitutional: denies: diaphoresis, fever ENT: denies: dental pain, hearing loss, epistaxis Respiratory: denies: shortness of breath, SOB with exertion, SOB at rest, stridor Cardiovascular: denies: chest pain, palpitations, dyspnea on exertion, orthopnea , edema, syncope, paroxysmal nocturnal dyspnea Gastrointestinal: denies: abdominal pain, nausea, vomiting, diarrhea, constipation, hematemesis, melena, hematochezia Neurological: denies: numbness, paresthesias, confusion Hematological/Lymphatic: denies: easy bruising, swollen glands ED Past Medical Hx - Past Medical History Hx Hypertension: Yes Hx Congestive Heart Failure: Yes Hx Diabetes: Yes Hx Renal Disease: Yes (ESRD-hd m-w- secondary hyperparathyroidism.) Hx HIV: No Additional medical history: cataracts, blind - Surgical History Hx Cholecystectomy: Yes Additional Surgical History: left AV fistula - Social History Smoking Status: Never Smoker Substance Use Type: None - Medications Home Medications: Home Medications Medication Instructions Recorded Confirmed Last Taken Type NovoLIN 70/30 6 units SQ Q12HR #1 vial 05/30/17 11/13/17 2 Days Ago Rx ~08/18/17 Aspirin [Aspirin BABY CHEW TAB] 81 mg PO QDAY #30 tab.chew 07/17/17 11/13/17 09:00 Rx Latanoprost 0.005% 1 drops OU QHS #1 bottle 07/17/17 11/13/17 11/12/17 20:00 Rx AtorvaSTATin [Lipitor] 40 mg PO QHS #30 tablet 08/29/17 11/13/17 09/10/17 20:00 Rx Calcitriol [Rocaltrol] 0.25 mcg PO QDAY #30 capsule 08/29/17 11/13/17 09/10/17 09:00 Rx Calcium Acetate [Phoslo] 667 mg PO TIDWM #90 capsule 08/29/17 11/13/17 09/10/17 17:00 Rx Carvedilol [Coreg] 12.5 mg PO BID #60 tablet 08/29/17 11/13/17 09/10/17 20:00 Rx Doxazosin [Cardura] 2 mg PO QDAY #30 tablet 08/29/17 11/13/17 09/10/17 09:00 Rx Epoetin Sivakumar 10,000 Unit [Procrit] 10,000 unit SUB-Q ONCE #30 vial 08/29/17 Unknown Rx Ferrous Sulfate [Feosol 325 MG tab] 325 mg PO QDAY #30 tablet 08/29/17 11/13/17 09/10/17 20:00 Rx Folic Acid/Vit B Comp W-C [Renal 1 cap PO QDAY #30 capsule 08/29/17 11/13/17 20:00 Rx Caps] Furosemide [Lasix TAB] 80 mg PO 0600,1800 tablet 08/29/17 11/13/17 09/10/17 18: 00 Rx Lispro Insulin [Humalog] 0 unit SUB-Q ACHS units 08/29/17 11/13/17 Unknown Rx NIFEdipine XL [Procardia Xl] 90 mg PO QDAY #30 tablet 08/29/17 11/13/17 09:00 Rx Pantoprazole [Protonix TAB] 40 mg PO BID #14 tablet 08/29/17 11/13/17 09/10/17 17:00 Rx hydrALAZINE [Apresoline TAB] 100 mg PO TID #90 tab 08/29/17 11/13/17 11/12/17 10 :00 Rx HYDROcodone/APAP 7.5-325 [[place] 1 each PO Q6HR PRN #40 tablet 09/11/17 11/13/17 Unknown Rx 7.5/325] ED Physical Exam - General Limitations: No Limitations General appearance: alert, other (nontoxic) - Head Head exam: Present: atraumatic, normocephalic - Eye Eye exam: Present: normal appearance, PERRL - ENT ENT exam: Present: normal exam, normal orophraynx - Neck Neck exam: Present: normal inspection. Absent: tenderness, meningismus - Respiratory Respiratory exam: Present: normal lung sounds bilaterally. Absent: respiratory distress, wheezes, rales, rhonchi, stridor - Cardiovascular Cardiovascular Exam: Present: regular rate, normal rhythm - GI/Abdominal GI/Abdominal exam: Present: soft. Absent: distended, tenderness, guarding, rebound, rigid, mass, pulsatile mass - Extremities Exam Extremities exam: Absent: joint swelling, calf tenderness - Back Exam Back exam: Present: normal inspection. Absent: CVA tenderness (L), muscle spasm , paraspinal tenderness, vertebral tenderness - Neurological Exam Neurological exam: Present: alert, oriented X3. Absent: motor sensory deficit - Psychiatric Psychiatric exam: Present: anxious - Skin Skin exam: Present: other (vascath with local drainage) ED Course Vital Signs 11/16/17 16:47 Temperature 98.1 F Pulse Rate 103 H Respiratory 16 Rate Blood Pressure 141/59 O2 Sat by Pulse 98 Oximetry ED Medical Decision Making - Medical Decision Making Case was discussed with Dr. canales we will admit the patient for overnight evaluation for further evaluation of vas cath removal and possible line infection she did receive antibiotics she is currently nontoxic does not appear septic laboratory studies are pending Dr. Mancera is aware the patient Critical care attestation.: If time is entered above; I have spent that time in minutes in the direct care of this critically ill patient, excluding procedure time. ED Disposition Clinical Impression: Chronic renal failure, Vascular port complication Disposition: OP ADMIT IP TO THIS HOSP Is pt being admited?: Yes Condition: Stable Time of Disposition: 18:01
[2017-11-16 18:57] LABS: Basophils % (Auto) 0.2 % (0.0-1.8); Eosinophils # (Auto) 0.1 K/mm3 (0.0-0.4); Lymphocytes # (Auto) 0.4 K/mm3 (1.2-5.4); Mean Corpuscular HGB Conc 33 % (30-34); Mean Corpuscular Hemoglobin 34 pg (28-32); Mean Corpuscular Volume 102 fl (79-97); Monocytes # (Auto) 0.3 K/mm3 (0.0-0.8); Monocytes % (Auto) 6.9 % (0.0-7.3); Platelet Count 224 K/mm3 (140-440); Red Blood Count 3.23 M/mm3 (3.65-5.03); Red Cell Distribution Width 15.3 % (13.2-15.2)
[2017-11-16 19:27] LABS: Albumin 3.4 g/dL (3.9-5); Calcium 7.9 mg/dL (8.4-10.2)
--- NOTE | 2017-11-16 19:31 | XRay Report ---
FINAL REPORT EXAM: XR CHEST 1V AP HISTORY: cath infection TECHNIQUE: Single, portable chest x-ray. PRIORS: 12 November 2017. FINDINGS: Right IJ dual-lumen central venous catheter and cardiomegaly stable. Lungs are normally expanded, without significant vascular congestion. No focal consolidation or apparent pneumothorax. IMPRESSION: 1. Stable examination. No acute consolidation.
[2017-11-16] MEDS ORDERED: D50W (25GM) Syringe IV PRN (20:34)
--- NOTE | 2017-11-16 20:44 | Consultation ---
History of Present Illness - Reason for Consult Consult date: 11/16/17 end stage renal disease - History of Present Illness The patient is a 72 YO female, who is well known to our service, with history significant for CHF, DM type 2, HTN, Hyperparathyroidism, ESRD on HD(M,W,F) and legally blind who was brought into the hospital from the hemodialysis unit for evaluation of purulent discharge from the dialysis catheter exit site. While tried to change the dressing the dialysis nurse noticed pus coming out from the exit site. Her vital signs were stable. Blood and pus culture were done and she received 1.5 gms of Vancomycin towards the end of dialysis. D/w Vascular for removal of the dialysis catheter. She denies cough, CP, wheezing, fever, chills, N, V, D, abd pain, syncope, hemoptysis or dizziness. Past History Past Medical History: anemia, diabetes, dialysis, ESRD, heart failure, hypertension, hyperlipidemia Medications and Allergies Allergies Allergy/AdvReac Type Severity Reaction Status Date / Time No Known Allergies Allergy Unverified 11/16/17 17:34 Home Medications Medication Instructions Recorded Confirmed Last Taken Type NovoLIN 70/30 6 units SQ Q12HR #1 vial 05/30/17 11/13/17 2 Days Ago Rx ~08/18/17 Aspirin [Aspirin BABY CHEW TAB] 81 mg PO QDAY #30 tab.chew 07/17/17 11/13/17 09:00 Rx Latanoprost 0.005% 1 drops OU QHS #1 bottle 07/17/17 11/13/17 11/12/17 20:00 Rx AtorvaSTATin [Lipitor] 40 mg PO QHS #30 tablet 08/29/17 11/13/17 09/10/17 20:00 Rx Calcitriol [Rocaltrol] 0.25 mcg PO QDAY #30 capsule 08/29/17 11/13/17 09/10/17 09:00 Rx Calcium Acetate [Phoslo] 667 mg PO TIDWM #90 capsule 08/29/17 11/13/17 09/10/17 17:00 Rx Carvedilol [Coreg] 12.5 mg PO BID #60 tablet 08/29/17 11/13/17 09/10/17 20:00 Rx Doxazosin [Cardura] 2 mg PO QDAY #30 tablet 08/29/17 11/13/17 09/10/17 09:00 Rx Epoetin Sivakumar 10,000 Unit [Procrit] 10,000 unit SUB-Q ONCE #30 vial 08/29/17 Unknown Rx Ferrous Sulfate [Feosol 325 MG tab] 325 mg PO QDAY #30 tablet 08/29/17 11/13/17 09/10/17 20:00 Rx Folic Acid/Vit B Comp W-C [Renal 1 cap PO QDAY #30 capsule 08/29/17 11/13/17 20:00 Rx Caps] Furosemide [Lasix TAB] 80 mg PO 0600,1800 tablet 08/29/17 11/13/17 09/10/17 18: 00 Rx Lispro Insulin [Humalog] 0 unit SUB-Q ACHS units 08/29/17 11/13/17 Unknown Rx NIFEdipine XL [Procardia Xl] 90 mg PO QDAY #30 tablet 08/29/17 11/13/17 09:00 Rx Pantoprazole [Protonix TAB] 40 mg PO BID #14 tablet 08/29/17 11/13/17 09/10/17 17:00 Rx hydrALAZINE [Apresoline TAB] 100 mg PO TID #90 tab 08/29/17 11/13/17 11/12/17 10 :00 Rx HYDROcodone/APAP 7.5-325 [[place] 1 each PO Q6HR PRN #40 tablet 09/11/17 11/13/17 Unknown Rx 7.5/325] Active Meds: Active Medications Dextrose (D50w (25gm) Syringe) 50 ml IV PRN PRN PRN Reason: Hypoglycemia Review of Systems Constitutional: no weight loss, no weight gain, no fever, no anorexia, no weakness Breasts: deferred Cardiovascular: high blood pressure, no chest pain, no orthopnea, no edema, no syncope, no lightheadedness, no shortness of breath, no leg edema Respiratory: no cough, no hemoptysis, no shortness of breath, no dyspnea on exertion, no home oxygen Gastrointestinal: no abdominal pain, no nausea, no vomiting Genitourinary Female: no dysuria, no hematuria Exam - Vital Signs Vital signs: Vital Signs Temp Pulse Resp BP Pulse Ox 98.1 F 103 H 16 141/59 98 11/16/17 16:47 11/16/17 16:47 11/16/17 16:47 11/16/17 16:47 11/16/17 16:47 - General Appearance General appearance: well-developed, well-nourished, appears stated age, other ( no distress, right IJ tunnel catheter) EENT: ATNC, mucous membranes moist, hearing intact Neck: Present: neck supple, trachea midline Respiratory: Clear to Ascultation Heart: regular, S1S2, no murmurs Gastrointestinal: Present: normoactive bowel sounds. Absent: tenderness Integumentary: warm and dry, chronic venous stasis Neurologic: other (bilateral blindness) Musculoskeletal: Present: other (no edema, left arm AVG) Psychiatric: cooperative Results - Lab Results 11/16/17 18:41 11/16/17 18:41 Most recent lab results Calcium 7.9 mg/dL (8.4-10.2) L 11/16/17 18:41 Assessment and Plan 1. Infected hemodialysis catheter: Consult Vascular for removal of the catheter. Received Vancomycin. Cultures pending. 2. ESRD: Continue HD three times a week, MWF schedule. Able to use the AVG with 17G needles. 3. Anemia: Monitor. 4. HTN: Resume home meds. 5. DM.
--- NOTE | 2017-11-16 23:55 | Event Note ---
Date: 11/22/17 See History and physical in the reports
[2017-11-16] MEDS ORDERED: NORCO 7.5/325 PO PRN (23:59)
[2017-11-17] MEDS ORDERED: TYLENOL PO PRN (00:02)
[2017-11-17] MEDS ORDERED: PERCOCET 5/325 PO PRN (00:02)
[2017-11-17] MEDS ORDERED: SODIUM CHLORIDE FLUSH SYRINGE 10 ML IV PRN (00:02)
[2017-11-17] MEDS ORDERED: ZOFRAN IV PRN (00:02)
[2017-11-17] MEDS ORDERED: MORPHINE IV PRN (00:02)
[2017-11-17] MEDS ORDERED: AMBIEN PO PRN (00:02)
--- NOTE | 2017-11-17 00:33 | History and Physical Report ---
CHIEF COMPLAINT: Medical clearance regarding catheter infection. HISTORY OF PRESENT ILLNESS: This 72-year-old comes in with drainage of the Vas-Cath site. The patient was given blood cultures and vancomycin. The patient was sent for possible Vas-Cath infection. The patient is, otherwise, awake and alert. No symptoms. PAST MEDICAL HISTORY: Significant for hypertension, hyperlipidemia, end-stage renal disease, anemia, congestive heart failure, insulin-dependent diabetes, gastroesophageal reflux disease. PAST SURGICAL HISTORY: Significant for the left AV fistula and cholecystectomy. SOCIAL HISTORY: Does not smoke. No alcohol, no recreational drugs. FAMILY HISTORY: Hypertension. REVIEW OF SYSTEMS: Significant for drainage from the port site. Otherwise, 14-point review of systems negative. MEDICATIONS: Home medications on the chart. PHYSICAL EXAMINATION: VITAL SIGNS: Temperature is 98.7, pulse is 112, respirations are 20, blood pressure is 165/66. HEENT: Unremarkable. Pupils equal and reactive. NECK: Supple, no lymphadenopathy, no thyromegaly. LUNGS: Clear to auscultation and percussion. Good air entry. CARDIOVASCULAR: S1, S2 heard. No gallop, no murmur, no rub. Apical impulse in left fifth intercostal space and midclavicular line. ABDOMEN: Soft and benign. No hepatosplenomegaly. No guarding, no rigidity. Hernial orifices are normal. EXTREMITIES: Good pedal pulses. No pedal edema. CENTRAL NERVOUS SYSTEM: Alert and oriented x 4, nonfocal exam. SKIN: Normal. LABORATORY DATA: White count is 4700, H 11.0 and 33.0, platelet count is 224. MCV and MCH are high. Sodium is 135, slightly low, BUN and creatinine is 19 and 1.9, glucose is 252 and 293. Calcium is 7.9, albumin is 3.4, alkaline phosphatase is 164. Chest x-ray shows no acute infiltrates. ASSESSMENT AND PLAN: 1. Vas-Cath infection. The patient was given IV vancomycin. Nephrology requested that no additional antibiotics to be given. Blood cultures sent. Vas-Cath to be removed. It was not removed because it is tunneled and it has to be done by Vascular Surgery. 2. Chronic kidney disease versus end-stage renal disease. We will defer to Nephrology. 3. Hypertension. Continue antihypertensives in the form of carvedilol and hydralazine. 4. Insulin-dependent diabetes. Continue Humalog and NovoLog 70/30. 5. Gastroesophageal reflux disease. Continue Protonix. 6. Congestive heart failure. Continue Lasix twice a day. 7. Deep venous thrombosis prophylaxis. Heparin 5000 q. 12. Nephrology consult requested. JOB# [id number] [facility]/NTS
[2017-11-17] MEDS: COREG PO SCH ×3 (00:41→23:22)
[2017-11-17] MEDS: LASIX PO SCH ×2 (05:49→19:16)
[2017-11-17] MEDS ORDERED: LASIX PO SCH (06:00)
--- NOTE | 2017-11-17 07:11 | Progress Note ---
Assessment and Plan 1. Infected hemodialysis catheter: s/p removal of the catheter. Received Vancomycin. Cultures pending. 2. ESRD: Continue HD three times a week, MWF schedule. 3. Anemia: Monitor. 4. HTN: Monitor. 5. DM. Subjective Date of service: 11/17/17 Interval history: Patient is doing ok. Objective - Vital Signs Vital signs: Vital Signs - 12hr 11/16/17 11/16/17 11/16/17 19:15 19:31 19:45 Temperature Pulse Rate 113 H Respiratory 21 Rate Blood Pressure 140/72 150/67 160/70 Blood Pressure [Right] O2 Sat by Pulse 96 99 98 Oximetry 11/16/17 11/16/17 11/16/17 19:50 20:01 20:21 Temperature 98.2 F Pulse Rate 101 H 112 H 108 H Respiratory 20 20 21 Rate Blood Pressure 165/66 153/67 Blood Pressure 153/67 [Right] O2 Sat by Pulse 100 100 99 Oximetry 11/16/17 11/16/17 11/16/17 20:31 20:40 21:13 Temperature 98.7 F Pulse Rate 106 H 106 H 122 H Respiratory 23 21 18 Rate Blood Pressure 153/67 165/66 156/69 Blood Pressure [Right] O2 Sat by Pulse 99 96 99 Oximetry 11/16/17 11/16/17 11/17/17 22:00 22:38 02:30 Temperature 98.6 F Pulse Rate 122 H 113 H Respiratory 18 16 Rate Blood Pressure 156/82 Blood Pressure [Right] O2 Sat by Pulse 96 Oximetry - General Appearance General appearance: well-developed, well-nourished, appears stated age, other ( no distress) EENT: ATNC, hearing intact Neck: supple Respiratory: Present: Clear to Ascultation Cardiology: regular, S1S2, no murmurs Gastrointestinal: normoactive bowel sounds, no tenderness Integumentary: warm and dry, chronic venous stasis Neurologic: no asterixis, other (bilateral blindness) Musculoskeletal: other (no edema, left arm AVG) Psychiatric: cooperative - Lab 11/16/17 18:41 11/16/17 18:41 Most recent lab results Calcium 7.9 mg/dL (8.4-10.2) L 11/16/17 18:41
[2017-11-17] MEDS ORDERED: APRESOLINE PO SCH (08:00)
[2017-11-17] MEDS ORDERED: INSULIN REGULAR SQ SCH (10:00)
[2017-11-17] MEDS ORDERED: NORVASC PO SCH (10:00)
[2017-11-17] MEDS ORDERED: INSULIN ISOPHANE SQ SCH (10:00)
[2017-11-17] MEDS: BABY ASPIRIN PO SCH (10:35)
[2017-11-17] MEDS: PROCARDIA XL PO SCH (10:36)
[2017-11-17] MEDS: PROTONIX PO SCH ×2 (10:36→23:22)
[2017-11-17] MEDS: FEOSOL PO SCH (10:36)
[2017-11-17] MEDS: Renal Caps PO SCH (10:37)
[2017-11-17] MEDS: ROCALTROL PO SCH (10:37)
[2017-11-17] MEDS: CARDURA PO SCH (10:37)
[2017-11-17] MEDS: PHOSLO PO SCH ×3 (10:38→19:15)
[2017-11-17] MEDS: HumaLOG SUB-Q SCH ×4 (10:39→23:21)
[2017-11-17] MEDS: SODIUM CHLORIDE FLUSH SYRINGE 10 ML IV SCH ×2 (10:47→23:23)
[2017-11-17] MEDS: APRESOLINE PO SCH ×3 (10:47→21:11)
--- NOTE | 2017-11-17 11:46 | Operative Report ---
Operative Report Operative Report: EXAM: TUNNELED HEMODIALYSIS CATHETER REMOVAL CLINICAL INDICATION: BACTEREMIA DATE: 11/17/2017 PROCEDURE: Following an explanation of the risks, benefits and alternatives; informed consent was obtained. The procedure was performed at bedside in the patient's room. Patient right chest wall and indwelling tunneled hemodialysis catheter were prepped and draped in usual sterile fashion. 1% lidocaine was used for anesthesia at the catheter exit site and along the tunnel tract. Using a combination of sharp and blunt dissection, the catheter Was dissected free and the catheter removed intact. The tip was removed and sent for culture. Hemostasis was achieved using manual compression and a sterile dressing applied. The patient tolerated the procedure well. There were no immediate post procedure complications. IMPRESSION: Tunneled hemodialysis catheter removal
--- NOTE | 2017-11-17 12:42 | Progress Note ---
Assessment and Plan Assessment and plan: 72-year-old man who had purulent drainage from dialysis catheter Past medical history includes hypertension and end-stage renal disease anemia of chronic disease, CHF, diabetes on insulin, GERD, hyperlipidemia Vas-Cath infection/line infection Continue antibiotics, follow up cultures, line has been removed with tip sent for culture End-stage renal disease Dialysis per nephrology Hypertension, diabetes, GERD, CHF Continue patient's home medications, optimize insulins History Interval history: Review of systems Constitutional: No fevers, no malaise, no joint pains CVS: No chest pain, no orthopnea, no dyspnea on exertion, no pedal edema GI: No abdominal pain, no diarrhea, no vomiting, no constipation Respiratory: No shortness of breath, no wheezing, no coughing Hospitalist Physical - Physical exam Narrative exam: General.: Appears well, no distress, nontoxic HEENT: Moist mucous membranes, extraocular muscles intact, no lymphadenopathy Neck: supple Cardiac: S1-S2 heard Lungs: clear to auscultation bilaterally Abdomen: soft , nontender, nondistended, bowel sounds positive Extremities: no edema clubbing or cyanosis Skin: no rash or lesions Neurologic: no gross focal deficits Psych: appropriate behavior, appropriate mood, corporative, judgment intact - Constitutional Vitals: Temp Pulse Resp BP Pulse Ox 99.7 F H 97 H 20 163/84 95 11/17/17 07:58 11/17/17 10:35 11/17/17 07:58 11/17/17 10:35 11/17/17 07:58 Results - Labs CBC & Chem 7: 11/16/17 18:41 11/16/17 18:41 Labs: Laboratory Last Values WBC 4.7 K/mm3 (4.5-11.0) 11/16/17 18:41 RBC 3.23 M/mm3 (3.65-5.03) L 11/16/17 18:41 Hgb 11.0 gm/dl (10.1-14.3) 11/16/17 18:41 Hct 33.0 % (30.3-42.9) 18 18:41 MCV 102 fl (79-97) H 18 18:41 MCH 34 pg (28-32) H 11/16/17 18:41 MCHC 33 % (30-34) 11/16/17 18:41 RDW 15.3 % (13.2-15.2) H 11/16/17 18:41 Plt Count 224 K/mm3 (140-440) 11/16/17 18:41 Lymph % (Auto) 8.0 % (13.4-35.0) L 11/16/17 18:41 [place] % (Auto) 6.9 % (0.0-7.3) 11/16/17 18:41 Eos % (Auto) 2.0 % (0.0-4.3) 11/16/17 18:41 Baso % (Auto) 0.2 % (0.0-1.8) 11/16/17 18:41 Lymph # 0.4 K/mm3 (1.2-5.4) L 11/16/17 18:41 [place] # 0.3 K/mm3 (0.0-0.8) 11/16/17 18:41 Eos # 0.1 K/mm3 (0.0-0.4) 11/16/17 18:41 Baso # 0.0 K/mm3 (0.0-0.1) 11/16/17 18:41 Seg Neutrophils % 82.9 % (40.0-70.0) H 11/16/17 18:41 Seg Neutrophils # 3.9 K/mm3 (1.8-7.7) 11/16/17 18:41 Sodium 135 mmol/L (137-145) L 11/16/17 18:41 Potassium 4.5 mmol/L (3.6-5.0) 11/16/17 18:41 Chloride 95.1 mmol/L (98-107) L 11/16/17 18:41 Carbon Dioxide 28 mmol/L (22-30) 11/16/17 18:41 Anion Gap 16 mmol/L 11/16/17 18:41 BUN 19 mg/dL (7-17) H 11/16/17 18:41 Creatinine 1.9 mg/dL (0.7-1.2) H 11/16/17 18:41 Estimated GFR 26 ml/min 11/16/17 18:41 BUN/Creatinine Ratio 10 % 11/16/17 18:41 Glucose 252 mg/dL (65-100) H 11/16/17 18:41 POC Glucose 248 (70-105) H 11/17/17 12:09 Hemoglobin A1c 5.8 % (4-6) 11/17/17 00:15 Lactic Acid 1.50 mmol/L (0.7-2.0) 11/16/17 21:58 Calcium 7.9 mg/dL (8.4-10.2) L 11/16/17 18:41 Total Bilirubin 0.40 mg/dL (0.1-1.2) 11/16/17 18:41 AST 21 units/L (5-40) 11/16/17 18:41 ALT 36 units/L (7-56) 11/16/17 18:41 Alkaline Phosphatase 164 units/L (35-129) H 11/16/17 18:41 Total Protein 6.4 g/dL (6.3-8.2) 11/16/17 18:41 Albumin 3.4 g/dL (3.9-5) L 11/16/17 18:41 Albumin/Globulin Ratio 1.1 % 11/16/17 18:41
[2017-11-17] MEDS: LATANOPROST 0.005% OU SCH (23:23)
[2017-11-18] MEDS: LASIX PO SCH ×2 (06:18→17:24)
[2017-11-18 06:23] LABS: Basophils # (Auto) 0.1 K/mm3 (0.0-0.1); Basophils % (Auto) 1.3 % (0.0-1.8); Eosinophils # (Auto) 0.3 K/mm3 (0.0-0.4); Eosinophils % (Auto) 6.3 % (0.0-4.3); Hematocrit 28.3 % (30.3-42.9); Hemoglobin 9.5 gm/dl (10.1-14.3); Lymphocytes # (Auto) 1.2 K/mm3 (1.2-5.4); Lymphocytes % (Auto) 24.2 % (13.4-35.0); Mean Corpuscular HGB Conc 34 % (30-34); Mean Corpuscular Hemoglobin 34 pg (28-32); Mean Corpuscular Volume 103 fl (79-97); Monocytes # (Auto) 0.6 K/mm3 (0.0-0.8); Monocytes % (Auto) 12.6 % (0.0-7.3); Platelet Count 196 K/mm3 (140-440); Red Blood Count 2.75 M/mm3 (3.65-5.03); Red Cell Distribution Width 15.1 % (13.2-15.2)
[2017-11-18 06:59] LABS: Albumin 3.1 g/dL (3.9-5); Calcium 8.3 mg/dL (8.4-10.2)
--- NOTE | 2017-11-18 07:17 | Progress Note ---
Assessment and Plan Assessment and plan: 72-year-old man who had purulent drainage from dialysis catheter Past medical history includes hypertension and end-stage renal disease anemia of chronic disease, CHF, diabetes on insulin, GERD, hyperlipidemia Vas-Cath infection/line infection Continue antibiotics, follow up cultures, line has been removed with tip sent for culture End-stage renal disease Dialysis per nephrology Hypertension, diabetes, GERD, CHF Continue patient's home medications, optimize insulins Hospitalist Physical - Constitutional Vitals: Temp Pulse Resp BP Pulse Ox 98.6 F 89 18 136/61 95 11/18/17 02:49 11/18/17 02:49 11/18/17 02:49 11/18/17 02:49 11/18/17 02:49 Results - Labs CBC & Chem 7: 11/18/17 05:04 11/18/17 05:04 Labs: Laboratory Last Values WBC 5.0 K/mm3 (4.5-11.0) 11/18/17 05:04 RBC 2.75 M/mm3 (3.65-5.03) L 11/18/17 05:04 Hgb 9.5 gm/dl (10.1-14.3) L 11/18/17 05:04 Hct 28.3 % (30.3-42.9) L 11/18/17 05:04 MCV 103 fl (79-97) H 11/18/17 05:04 MCH 34 pg (28-32) H 11/18/17 05:04 MCHC 34 % (30-34) 11/18/17 05:04 RDW 15.1 % (13.2-15.2) 11/18/17 05:04 Plt Count 196 K/mm3 (140-440) 11/18/17 05:04 Lymph % (Auto) 24.2 % (13.4-35.0) 11/18/17 05:04 [place] % (Auto) 12.6 % (0.0-7.3) H 11/18/17 05:04 Eos % (Auto) 6.3 % (0.0-4.3) H 11/18/17 05:04 Baso % (Auto) 1.3 % (0.0-1.8) 11/18/17 05:04 Lymph # 1.2 K/mm3 (1.2-5.4) 11/18/17 05:04 [place] # 0.6 K/mm3 (0.0-0.8) 11/18/17 05:04 Eos # 0.3 K/mm3 (0.0-0.4) 11/18/17 05:04 Baso # 0.1 K/mm3 (0.0-0.1) 11/18/17 05:04 Seg Neutrophils % 55.6 % (40.0-70.0) 11/18/17 05:04 Seg Neutrophils # 2.8 K/mm3 (1.8-7.7) 11/18/17 05:04 Sodium 134 mmol/L (137-145) L 11/18/17 05:04 Potassium 3.9 mmol/L (3.6-5.0) 11/18/17 05:04 Chloride 95.0 mmol/L (98-107) L 11/18/17 05:04 Carbon Dioxide 25 mmol/L (22-30) 11/18/17 05:04 Anion Gap 18 mmol/L 11/18/17 05:04 BUN 50 mg/dL (7-17) H 11/18/17 05:04 Creatinine 3.8 mg/dL (0.7-1.2) H D 11/18/17 05:04 Estimated GFR 12 ml/min 11/18/17 05:04 BUN/Creatinine Ratio 13 % 11/18/17 05:04 Glucose 150 mg/dL (65-100) H 11/18/17 05:04 POC Glucose 279 (70-105) H 11/17/17 21:13 Hemoglobin A1c 5.8 % (4-6) 11/17/17 00:15 Lactic Acid 1.50 mmol/L (0.7-2.0) 11/16/17 21:58 Calcium 8.3 mg/dL (8.4-10.2) L 11/18/17 05:04 Total Bilirubin 0.20 mg/dL (0.1-1.2) 11/18/17 05:04 AST 13 units/L (5-40) 11/18/17 05:04 ALT 23 units/L (7-56) 11/18/17 05:04 Alkaline Phosphatase 133 units/L (35-129) H 11/18/17 05:04 Total Protein 5.3 g/dL (6.3-8.2) L 11/18/17 05:04 Albumin 3.1 g/dL (3.9-5) L 11/18/17 05:04 Albumin/Globulin Ratio 1.4 % 11/18/17 05:04
[2017-11-18] MEDS ORDERED: VANCOMYCIN/NS 1 GM/250 ML 1 GM/250 ML BAG IV ONE (08:00)
[2017-11-18] MEDS ORDERED: ZOSYN/NS 4.5GM/100ML 4.5 GM/100 ML VIAL IV SCH (08:00)
[2017-11-18] MEDS ORDERED: VANCOMYCIN PHARMACY TO DOSE IV SCH (08:00)
--- NOTE | 2017-11-18 08:20 | Progress Note ---
Assessment and Plan 1. Infected hemodialysis catheter: s/p removal of the catheter. Received Vancomycin. Cultures pending. 2. ESRD: Continue HD three times a week, MWF schedule. 3. Anemia: Monitor. 4. HTN: Monitor. 5. DM. Subjective Date of service: 11/18/17 Interval history: Patient is doing ok. Objective - Vital Signs Vital signs: Vital Signs - 12hr 11/18/17 02:49 Temperature 98.6 F Pulse Rate 89 Respiratory 18 Rate Blood Pressure 136/61 O2 Sat by Pulse 95 Oximetry - General Appearance General appearance: well-developed, well-nourished, appears stated age, other ( no distress) EENT: ATNC, hearing intact Neck: supple Respiratory: Present: Clear to Ascultation Cardiology: regular, S1S2, no murmurs Gastrointestinal: normoactive bowel sounds, no tenderness Integumentary: no rash Neurologic: no asterixis, other (bialateral blindness) Musculoskeletal: other (left arm AVF) Psychiatric: cooperative - Lab 11/18/17 05:04 11/18/17 05:04 Most recent lab results Calcium 8.3 mg/dL (8.4-10.2) L 11/18/17 05:04
[2017-11-18] MEDS: HumaLOG SUB-Q SCH ×4 (08:45→22:32)
[2017-11-18] MEDS: PHOSLO PO SCH ×3 (09:02→17:24)
[2017-11-18] MEDS: ZOSYN/NS 2.25 GM/50ML 2.25 GM/50 ML BAG IV SCH ×2 (09:02→16:55)
[2017-11-18] MEDS: APRESOLINE PO SCH ×3 (09:04→20:49)
[2017-11-18] MEDS: SODIUM CHLORIDE FLUSH SYRINGE 10 ML IV SCH ×2 (11:00→22:33)
[2017-11-18] MEDS: FEOSOL PO SCH (11:00)
[2017-11-18] MEDS: PROTONIX PO SCH ×2 (11:01→22:32)
[2017-11-18] MEDS: CARDURA PO SCH (11:01)
[2017-11-18] MEDS: COREG PO SCH ×2 (11:02→22:32)
[2017-11-18] MEDS: ROCALTROL PO SCH (11:02)
[2017-11-18] MEDS: Renal Caps PO SCH (11:02)
[2017-11-18] MEDS: BABY ASPIRIN PO SCH (11:03)
[2017-11-18] MEDS: PROCARDIA XL PO SCH (11:04)
[2017-11-18] MEDS ORDERED: NACL 0.9% 100 ML IV PRN (21:59)
[2017-11-18] MEDS: LATANOPROST 0.005% OU SCH (22:31)
[2017-11-19] MEDS: ZOSYN/NS 2.25 GM/50ML 2.25 GM/50 ML BAG IV SCH ×3 (00:14→15:08)
[2017-11-19] MEDS: LASIX PO SCH ×2 (05:14→17:39)
[2017-11-19] MEDS: HumaLOG SUB-Q SCH ×3 (08:25→17:20)
[2017-11-19] MEDS: APRESOLINE PO SCH ×2 (09:12→14:53)
[2017-11-19] MEDS: PHOSLO PO SCH ×3 (09:14→17:39)
[2017-11-19] MEDS ORDERED: VANCOMYCIN/NS 1 GM/250 ML 1 GM/250 ML BAG IV SCH (10:00)
--- NOTE | 2017-11-19 10:59 | Progress Note ---
Assessment and Plan 1. Infected hemodialysis catheter: s/p removal of the catheter. On Vancomycin. Cultures pending. 2. ESRD: Continue HD three times a week, MWF schedule. 3. Anemia: Monitor. 4. HTN: BP well controlled. 5. DM. Subjective Date of service: 11/19/17 Interval history: Patient is doing ok. Objective - Vital Signs Vital signs: Vital Signs - 12hr 11/19/17 11/19/17 11/19/17 02:08 04:25 07:41 Temperature 98.9 F 99.1 F Pulse Rate 100 H 97 H 87 Respiratory 18 16 Rate Blood Pressure 114/54 103/54 O2 Sat by Pulse 96 96 Oximetry O2 Sat by Pulse Oximetry [ Throughout] 11/19/17 11/19/17 11/19/17 09:03 09:20 09:30 Temperature 98.4 F Pulse Rate 91 H 97 H 86 Respiratory 18 Rate Blood Pressure 94/59 119/68 111/66 O2 Sat by Pulse Oximetry O2 Sat by Pulse 96 Oximetry [ Throughout] 11/19/17 11/19/17 11/19/17 09:45 10:00 10:15 Temperature Pulse Rate 99 H 92 H 92 H Respiratory Rate Blood Pressure 107/67 109/56 117/63 O2 Sat by Pulse Oximetry O2 Sat by Pulse Oximetry [ Throughout] - General Appearance General appearance: well-developed, well-nourished, appears stated age, other ( no distress) EENT: ATNC Neck: supple Respiratory: Present: Clear to Ascultation Cardiology: regular, S1S2, no murmurs Gastrointestinal: normoactive bowel sounds, no tenderness Integumentary: no rash, warm and dry Neurologic: no asterixis, alert and oriented x3, other (bilateral blindness) Musculoskeletal: other (no edema) Psychiatric: cooperative - Lab 11/18/17 05:04 11/18/17 05:04 Most recent lab results Calcium 8.3 mg/dL (8.4-10.2) L 11/18/17 05:04
[2017-11-19] MEDS ORDERED: NACL 0.9 (PRIMING MACHINE ONLY DIALYSIS) MC ONE (11:08)
--- NOTE | 2017-11-19 12:26 | Consultation ---
History of Present Illness - Reason for Consult Consult date: 11/19/17 vas cath infection Requesting physician: VIGNESH RAMÍREZ - History of Present Illness 72 y/o female with history of CHF, DM 2, HTN, Hyperparathyroidism, ESRD on HD (M ,W,F) and legally blind; admitted on 11/16/17 due to purulent diacharge from HD site seen at the HD unit. While tried to change the dressing the dialysis nurse noticed pus coming out from the exit site. Her vital signs were stable. Blood and pus culture were done and she received 1.5 gms of Vancomycin towards the end of dialysis. She denies any fever, chills, N/V/D. Pt is s/p Left Brachial Artery to Axillary Vein AV Graft with 5 mm Bovine Graft on 09/11/17. In the ED, temp 98.1, HR 103, R 16, BP 141/59. WBC 4.7. Hg 11.1. Plat 224. Creat 1.9. Microbiology: Blood cultures: 11/16 ngtd 11/16 from HD center neg Chest wound: 11/16 neg Cath tip: 11/18 neg Current Antimicrobials: Zosyn 11/16 Vancomycin 11/16 Previous Antimicrobials: Past History Past Medical History: anemia, diabetes, dialysis, ESRD, heart failure, hypertension, hyperlipidemia Medications and Allergies Allergies Allergy/AdvReac Type Severity Reaction Status Date / Time No Known Allergies Allergy Verified 11/16/17 21:25 Home Medications Medication Instructions Recorded Confirmed Last Taken Type NovoLIN 70/30 6 units SQ Q12HR #1 vial 05/30/17 11/18/17 2 Days Ago Rx ~08/18/17 Aspirin [Aspirin BABY CHEW TAB] 81 mg PO QDAY #30 tab.chew 07/17/17 11/18/17 09:00 Rx Latanoprost 0.005% 1 drops OU QHS #1 bottle 07/17/17 11/18/17 11/12/17 20:00 Rx AtorvaSTATin [Lipitor] 40 mg PO QHS #30 tablet 08/29/17 11/18/17 09/10/17 20:00 Rx Calcitriol [Rocaltrol] 0.25 mcg PO QDAY #30 capsule 08/29/17 11/18/17 09/10/17 09:00 Rx Calcium Acetate [Phoslo] 667 mg PO TIDWM #90 capsule 08/29/17 11/18/17 09/10/17 17:00 Rx Carvedilol [Coreg] 12.5 mg PO BID #60 tablet 08/29/17 11/18/17 09/10/17 20:00 Rx Doxazosin [Cardura] 2 mg PO QDAY #30 tablet 08/29/17 11/18/17 09/10/17 09:00 Rx Ferrous Sulfate [Feosol 325 MG tab] 325 mg PO QDAY #30 tablet 08/29/17 11/18/17 09/10/17 20:00 Rx Folic Acid/Vit B Comp W-C [Renal 1 cap PO QDAY #30 capsule 08/29/17 11/18/17 20:00 Rx Caps] Furosemide [Lasix TAB] 80 mg PO 0600,1800 tablet 08/29/17 11/18/17 09/10/17 18: 00 Rx Lispro Insulin [Humalog] 0 unit SUB-Q ACHS units 08/29/17 11/18/17 Unknown Rx NIFEdipine XL [Procardia Xl] 90 mg PO QDAY #30 tablet 08/29/17 11/18/17 09:00 Rx Pantoprazole [Protonix TAB] 40 mg PO BID #14 tablet 08/29/17 11/18/17 09/10/17 17:00 Rx hydrALAZINE [Apresoline TAB] 100 mg PO TID #90 tab 08/29/17 11/18/17 11/12/17 10 :00 Rx HYDROcodone/APAP 7.5-325 [[place] 1 each PO Q6HR PRN #40 tablet 09/11/17 11/18/17 Unknown Rx 7.5-325 mg TAB] Active Meds: Active Medications Acetaminophen (Tylenol) 650 mg PO Q4H PRN PRN Reason: Pain MILD(1-3)/Fever >100.5/CANALES Last Admin: 11/18/17 11:23 Dose: 650 mg Acetaminophen/Hydrocodone Bitart ([place] 7.5/325) 1 each PO Q6HR PRN PRN Reason: Pain, Mild (1-3) Aspirin (Baby Aspirin) 81 mg PO QDAY VINNY Last Admin: 11/18/17 11:03 Dose: 81 mg Atorvastatin Calcium (Lipitor) 40 mg PO QHS [facility] Last Admin: 11/18/17 22:32 Dose: 40 mg Calcitriol (Rocaltrol) 0.25 mcg PO QDAY [facility] Last Admin: 11/18/17 11:02 Dose: 0.25 mcg Calcium Acetate (Phoslo) 667 mg PO TIDWM [facility] Last Admin: 11/19/17 09:14 Dose: Not Given Carvedilol (Coreg) 12.5 mg PO BID [facility] Last Admin: 11/18/17 22:32 Dose: 12.5 mg Dextrose (D50w (25gm) Syringe) 50 ml IV PRN PRN PRN Reason: Hypoglycemia Doxazosin Mesylate (Cardura) 2 mg PO QDAY [facility] Last Admin: 11/18/17 11:01 Dose: 2 mg Ferrous Sulfate (Feosol) 325 mg PO QDAY [facility] Last Admin: 11/18/17 11:00 Dose: 325 mg Furosemide (Lasix) 80 mg PO 0600,1800 [facility] Last Admin: 11/19/17 05:14 Dose: 80 mg Hydralazine HCl (Apresoline) 100 mg PO TID [facility] Last Admin: 11/19/17 09:12 Dose: Not Given Piperacillin Sod/Tazobactam Sod (Zosyn/Ns 2.25 Gm/50ml) 2.25 gm in 50 mls @ 100 mls/hr IV Q8H [facility] Last Admin: 11/19/17 09:15 Dose: Not Given Sodium Chloride (Nacl 0.9%) 100 mls @ 999 mls/hr IV ALEX PRN PRN Reason: Hypotension Insulin Human Isoph/Insulin Regular (Humulin 70/30) 6 unit SUB-Q BIDDIAB [facility] Last Admin: 11/19/17 08:35 Dose: 6 unit Insulin Human Lispro ([facility]alog) [facility] Protocol Last Admin: 11/19/17 11:44 Dose: Not Given Latanoprost (Latanoprost 0.005%) 1 drops OU QHS [facility] Last Admin: 11/18/17 22:31 Dose: 1 drops Morphine Sulfate (Morphine) 2 mg IV Q4H PRN PRN Reason: Pain, Moderate (4-6) Multivit/Ca Carb/B Cmplx/FA/Prenat (Renal Caps) 1 cap PO QDAY [facility] Last Admin: 11/18/17 11:02 Dose: 1 cap Nifedipine (Procardia Xl) 90 mg PO QDAY [facility] Last Admin: 11/18/17 11:04 Dose: 90 mg Ondansetron HCl (Zofran) 4 mg IV Q8H PRN PRN Reason: Nausea And Vomiting Oxycodone/Acetaminophen (Percocet 5/325) 1 tab PO Q6H PRN PRN Reason: Pain, Moderate (4-6) Last Admin: 11/17/17 23:21 Dose: 1 tab Pantoprazole Sodium (Protonix) 40 mg PO BID [facility] Last Admin: 11/18/17 22:32 Dose: 40 mg Sodium Chloride (Sodium Chloride Flush Syringe 10 Ml) 10 ml IV BID [facility] Last Admin: 11/18/17 22:33 Dose: 10 ml Sodium Chloride (Sodium Chloride Flush Syringe 10 Ml) 10 ml IV PRN PRN PRN Reason: LINE FLUSH Vancomycin HCl (Vancomycin Pharmacy To Dose) 1 each IV PKCONSULT [facility]; Protocol Zolpidem Tartrate (Ambien) 5 mg PO QHS PRN PRN Reason: Insomnia Last Admin: 11/17/17 23:22 Dose: 5 mg Physical Examination - Physical Exam Narrative exam: General appearance: Alert slightly somnolent in NAD, non conversant Eyes: anicteric sclerae, moist conjunctivae; no lid-lag; PERRLA HENT: Atraumatic; oropharynx limited Neck: Trachea midline; supple, no thyromegaly or lymphadenopathy Lungs: CTA CV: RRR, no murmurs Abdomen: Soft, non-tender; no masses or hepatosplenomegaly Extremities: right AVG Skin: Normal temperature, turgor and texture; no rash, ulcers or subcutaneous nodules Psych: non verbal . Neuro: somnolent non verbal Lines: No CVL / PICC - Constitutional Vitals: Vital Signs Temp Pulse Resp BP Pulse Ox 98.4 F 99 H 18 133/67 96 11/19/17 09:03 11/19/17 12:15 11/19/17 09:03 11/19/17 12:15 11/19/17 09:03 Temperature -Last 24 Hours Temperature 98.4 F Temperature 99.1 F Temperature 98.9 F Temperature 98.6 F Temperature 98.1 F Results - Labs CBC & Chem 7: 11/18/17 05:04 11/18/17 05:04 Labs: Abnormal lab results 11/18/17 11/18/17 11/19/17 Range/Units 16:56 21:12 07:47 POC Glucose 211 H 238 H 192 H (70-105) Assessment and Plan Assessment: 1) HD access infection (vas cath IJ) -purulent discharge from HD site seen at the HD unit. -cath removed on 11/18 - tip cx no growth -11/16 blood cx inpatient no growth -11/16 blood cx from HD center neg -Chest wound 11/16 neg 2) ESRD on HD (M,W,F) 3) CHF 4) DM 2, 5) HTN 6) Hyperparathyroidism 7) Legally blind Plan: -follow-up blood cultures -continue vancomycin 1 g IV on HD every 48h total 14 days until 12/02/17 -stop zosyn -please f/u HD center blood cx Discussed with Dr Appiah I am signing off Thank you for your consultation, will follow up with you. Adry Sullivan MD Infectious Diseases Specialist [facility] M [phone] O [phone]
--- NOTE | 2017-11-19 12:37 | Discharge Summary ---
Providers - Providers Date of Admission: 11/16/17 18:42 Attending physician: VIGNESH RAMÍREZ MD 11/16/17 18:41 Consult to Physician [CONS] Stat Comment: Dr. Real spoke with Dr. Espino Consulting Provider: BARRY ESPINO Physician Instructions: Reason For Exam: admit 11/16/17 21:09 Consult to Physician [CONS] Routine Comment: dr. pierre came to see the patient/ rahat Consulting Provider: DB GALARZA Physician Instructions: Reason For Exam: To remove the dialysis catheter. 11/18/17 07:24 Consult to Physician [CONS] Routine Comment: spoke to dr. meza/rahat Consulting Provider: NANO GUTIERREZ Physician Instructions: Reason For Exam: vas cath infection 11/18/17 23:27 Occupational Therapy Evaluate and Treat [CONS] Routine Comment: Reason For Exam: Generalized weakness Physical Therapy Evaluation and Treat [CONS] Routine Comment: Reason For Exam: Generalized weakness Hospitalization Condition: Stable Exam - Constitutional Vitals: Temp Pulse Resp BP Pulse Ox 98.4 F 99 H 18 133/67 96 11/19/17 09:03 11/19/17 12:15 11/19/17 09:03 11/19/17 12:15 11/19/17 09:03 Plan Follow up with: SELINA FONTAINE [Other] - 7 Days
[2017-11-19] MEDS: CARDURA PO SCH (12:59)
[2017-11-19] MEDS: FEOSOL PO SCH (12:59)
[2017-11-19] MEDS: BABY ASPIRIN PO SCH (12:59)
[2017-11-19] MEDS: PROTONIX PO SCH (13:00)
[2017-11-19] MEDS: SODIUM CHLORIDE FLUSH SYRINGE 10 ML IV SCH (13:02)
[2017-11-19] MEDS: COREG PO SCH (13:07)
[2017-11-19 13:29] VITALS: BP 114/51
[2017-11-19] MEDS: PROCARDIA XL PO SCH (13:30)
[2017-11-19] MEDS: Renal Caps PO SCH (13:30)
[2017-11-19] MEDS: ROCALTROL PO SCH (13:30)
== END 2017-11-19 19:22 | disposition home or self-care (01) | DRG 314 ==
LOC: ED 16:37 → 2B-ACE 18:42
PROVIDERS: ADMIT Internal Medicine; ATTEND Internal Medicine
PROC: 0JPT3XZ Removal of Tunneled Vascular Access Device from Trunk Subcutaneous Tissue and Fascia, Percutaneous Approach (ICD-10-PCS; 2017-11-17)
PROC: 05PYX3Z Removal of Infusion Device from Upper Vein, External Approach (ICD-10-PCS; 2017-11-17)
PROC: 5A1D70Z Performance of Urinary Filtration, Intermittent, Less than 6 Hours Per Day (ICD-10-PCS; principal; 2017-11-19)
DX: T82.7XXA Infection and inflammatory reaction due to other cardiac and vascular devices, implants and grafts, initial encounter (principal); N18.6 End stage renal disease; I13.2 Hypertensive heart and chronic kidney disease with heart failure and with stage 5 chronic kidney disease, or end stage renal disease; T82.898A Other specified complication of vascular prosthetic devices, implants and grafts, initial encounter; K21.9 Gastro-esophageal reflux disease without esophagitis; E11.22 Type 2 diabetes mellitus with diabetic chronic kidney disease; H26.9 Unspecified cataract; Y83.8 Other surgical procedures as the cause of abnormal reaction of the patient, or of later complication, without mention of misadventure at the time of the procedure; E21.3 Hyperparathyroidism, unspecified; H54.8 Legal blindness, as defined in USA; E78.5 Hyperlipidemia, unspecified; D64.9 Anemia, unspecified; Z79.4 Long term (current) use of insulin; Z82.49 Family history of ischemic heart disease and other diseases of the circulatory system; Z79.899 Other long term (current) drug therapy; Z79.82 Long term (current) use of aspirin; Y92.89 Other specified places as the place of occurrence of the external cause; Z99.2 Dependence on renal dialysis; Z90.49 Acquired absence of other specified parts of digestive tract; I50.9 Heart failure, unspecified
CPT/HCPCS: 36415; 71045; 80053; 80202; 82140; 82962; 83036; 85025; 87040; 87076; 87116; 87186; A9270-GY; J1815; J2543; J3370; J7030